=== PATIENT | male | born 1935 | race Caucasian/White ===

== ENCOUNTER → 2016-09-09 | Outpatient (CLI) | payer OTHER ==
[~2016-09-09] MED LIST: ASPCH81; METO25TA3 PO
[2016-09-09 09:36] LABS: BASO % 0.5 %; BASO ABS # 0.04 K/uL (0-0.2); COMPLETE YES; EOS % 5.2 %; HEMATOCRIT 42.6 % (42-52); IG% 0.2 %; LYMPH % 21.5 %; LYMPH ABS # 1.79 K/uL (1.2-3.4); MEAN CELL VOLUME 91.6 fL (80-100); MEAN CORPUSCULAR HEMOGLOBIN 31.2 pg (25-34); MEAN PLATELET VOLUME 12.5 fL (7.4-10.4); MONO % 14.6 %; PLATELET COUNT 249 K/uL (130-400); RED BLOOD COUNT 4.65 M/uL (4.7-6.1); WHITE BLOOD COUNT 8.31 K/uL (4.8-10.8)
[2016-09-09 10:02] LABS: ALT/SGPT 24 U/L (12-78); AST/SGOT 12 U/L (15-37); BLOOD UREA NITROGEN 15 mg/dl (7-18); BUN/CREATININE RATIO 17.8 (10-20); CARBON DIOXIDE 27 mmol/L (21-32); CHLORIDE 106 mmol/L (98-107); CHOLESTEROL 146 mg/dl (0-200); CREATININE 0.86 mg/dl (0.60-1.40); GLUCOSE 96 mg/dl (70-99); POTASSIUM 3.8 mmol/L (3.5-5.1); SODIUM 142 mmol/L (136-145); TRIGLYCERIDES 78 mg/dl (0-150); VERY LOW DENSITY LIPOPROT CALC 16 mg/dl
[2016-09-09 10:10] LABS: ALB/GLOB RATIO 0.7 (0.9-2); ALKALINE PHOSPHATASE 79 U/L (45-117); CHOLESTEROL/HDL RATIO 3.8; HDL CHOLESTEROL 38 mg/dl; LDL CHOLESTEROL CALCULATED 92 mg/dl
[2016-09-09 10:14] LABS: ESTIMATED AVERAGE GLUCOSE 120 mg/dl; HA1C FLAG Normal (Normal)
--- NOTE | 2016-09-15 12:23 | CODING QUERY MEDICAL NECESSITY ---
SUPPORTING DIAGNOSIS NEEDED A supporting diagnosis is required for the test/procedure performed on this patient in order for us to be reimbursed by the patient's insurance. Please provide a supporting diagnosis for the following test/procedure listed below next to the test name along with your signature. *If there is no additional diagnosis for this patient that would support the following test/procedure please document that below next to the test/procedure. Test(s)/Procedure(s) that require a supporting diagnosis: * HEMOGLOBIN A1C DIAGNOSIS: Provider Signature: Date: Thank you Milagros Garg [employer] Information Management Once completed, please kindly fax back to [phone] For questions please call [phone]
== END | disposition home or self-care (01) ==
LOC: C.LAB 07:33
PROVIDERS: ATTEND Internal Medicine
DX: I48.0 Paroxysmal atrial fibrillation (principal); R73.01 Impaired fasting glucose

== ENCOUNTER → 2017-10-09 | Outpatient (CLI) | payer OTHER ==
[2017-10-09 10:36] LABS: BASO % 0.3 %; BASO ABS # 0.03 K/uL (0-0.2); EOS % 1.7 %; EOS ABS # 0.15 K/uL (0-0.5); HEMATOCRIT 42.9 % (42-52); IG# 0.02 K/uL (0.00-0.02); LYMPH % 22.8 %; MEAN CELL VOLUME 92.7 fL (80-100); MEAN CORPUSCULAR HEMOGLOBIN 32.4 pg (25-34); MONO % 9.1 %; NEUT % 65.9 %; NEUT ABS # 5.77 K/uL (1.4-6.5); PLATELET COUNT 249 K/uL (130-400); RED CELL DISTRIBUTION WIDTH CV 13.8 % (11.5-14.5); RED CELL DISTRIBUTION WIDTH SD 46.9 fL (36.4-46.3); WHITE BLOOD COUNT 8.77 K/uL (4.8-10.8)
[2017-10-09 10:43] LABS: HEMOGLOBIN A1C 5.6 % (4.5-5.6)
[2017-10-09 11:02] LABS: ALBUMIN 3.4 gm/dl (3.4-5.0); ALT/SGPT 31 U/L (12-78); AST/SGOT 14 U/L (15-37); BLOOD UREA NITROGEN 19 mg/dl (7-18); CALCIUM 9.2 mg/dl (8.5-10.1); CARBON DIOXIDE 28 mmol/L (21-32); CREATININE 1.05 mg/dl (0.60-1.40); POTASSIUM 4.1 mmol/L (3.5-5.1); SODIUM 140 mmol/L (136-145)
[2017-10-09 11:04] LABS: GLUCOSE 94 mg/dl (70-99)
[2017-10-09 11:05] LABS: ALKALINE PHOSPHATASE 80 U/L (45-117); TOTAL PROTEIN 8.1 gm/dl (6.4-8.2)
== END | disposition home or self-care (01) ==
LOC: C.LABBC 08:52
PROVIDERS: ATTEND Internal Medicine
DX: Z95.0 Presence of cardiac pacemaker (principal); I10 Essential (primary) hypertension; E03.9 Hypothyroidism, unspecified; R73.01 Impaired fasting glucose; I44.2 Atrioventricular block, complete; I48.0 Paroxysmal atrial fibrillation; N40.1 Benign prostatic hyperplasia with lower urinary tract symptoms

== ENCOUNTER 2021-12-28 11:30 | Inpatient (IN) ==
--- NOTE | 2021-12-28 12:08 | Emergency Department Note ---
History of Present Illness General Chief complaint: Hip Pain Stated complaint: RT HIP PAIN Time Seen by Provider: 12/28/21 11:50 History of Present Illness Maximum Pain Intensity: 5 This is an 86-year-old male that presents to the emergency department via private vehicle accompanied by male with complaints of "right hip pain". The patient notes that he has been experiencing right hip pain over the past few days. No known trauma or injury. No history of previous hip surgery. Patient denies any fevers, chills, chest pain, shortness of breath or abdominal pain. Patient points to the right lateral posterior hip as a location of pain that radiates down the right leg and into the right foot. He notes some right foot numbness with this discomfort. Patient denies any lower extremity weakness, bowel or bladder incontinence, numbness or tingling in genital region. Current pain 07/30. Home Medications Medication Instructions Recorded Confirmed Type clobetasol-emollient 0.05 % 1 appln topical BID PRN flare up 11/15/19 12/28/21 History topical cream #1 g sildenafil 100 mg tablet 100 mg PO UD PRN sexual activity 11/15/19 12/28/21 Rx #30 tabs cholecalciferol (vitamin D3) 50 50 mcg PO DAILY #30 caps 05/29/20 12/28/21 Rx mcg (2,000 unit) capsule carvedilol 25 mg tablet 25 mg PO BID #180 tabs 07/05/21 12/28/21 Rx apixaban 5 mg tablet (Eliquis) 5 mg PO BID #180 tabs 07/23/21 12/28/21 Rx lisinopril 5 mg tablet 5 mg PO DAILY #90 tabs 11/04/21 12/28/21 Rx Allergies Allergy/AdvReac Type Severity Reaction Status Date / Time ciprofloxacin Allergy Intermediate Rash Verified 12/28/21 17:13 Quinolones Allergy Intermediate CIPRO-RASH Verified 12/28/21 17:13 Past Med/Surg History Medical History Atrial fibrillation Cardiomyopathy Hypertension Impaired fasting glucose Third degree heart block Surgical History History of colonoscopy History of laparoscopy history of pyelotomy with lithotomy History of pacemaker Family History Father Old age Mother Old age Grandfather (Maternal) Myocardial infarction Other No significant family history Denies family history of Ovarian cancer Prostate cancer Breast cancer Lung cancer Colorectal cancer Stroke Social History Smoking Status: Never smoker Second Hand Exposure: No; Do You Dip or Chew Tobacco: No; Tobacco Cessation Education Requested by Patient: No Hx Alcohol Use: Yes Alcohol type: beer Alcohol Intake Frequency: 4 or More x per/Week Hx Substance Use: No Preferred Language: Chinese Communication Ability: Effective Visual Impairment: Limited Hearing Ability: Hard of Hearing Mechanical Systems Designer Required: No Beliefs That Will Affect Care: Spiritual marital status: Single Current Living Situation: Alone current occupational status: retired How many Children do You have: 0 Other Information That Helps Us Care for You: No Feels Safe at Home: Yes Safety Concerns: Feels Safe At This Time Childhood Exposure to Second-Hand Smoke: Yes caffeine: Yes Dental Care, Regularly: No Physical Activity Frequency: 1-2 Times per Week Seatbelt Use: always Sunscreen Use: No Assistive Devices: None Review of Systems A total of 10 systems reviewed and were otherwise negative Physical Exam Vital Signs Vital Signs - 24 hr 12/28/21 11:46 12/28/21 15:02 12/28/21 17:57 Temperature 36.5 C Temperature Source Temporal Artery Scan Pulse Rate 83 Pulse Rate [Left Finger] 71 71 Pulse Rhythm Regular Pulse Rhythm [Left Finger] Regular Pulse Strength Normal Pulse Strength [Left Finger] Normal Respiratory Rate 16 18 18 Respiratory Effort / Characteristics Non-Labored Spontaneous Non-Labored Spontaneous Respiratory Depth Normal Normal Respiratory Pattern Regular Regular Blood Pressure 100/65 Blood Pressure [Left Arm] 156/99 H 159/82 H Blood Pressure Mean 76 Blood Pressure Mean [Left Arm] 118 107 Blood Pressure Position Sitting Blood Pressure Position [Left Arm] Sitting Pulse Oximetry 96 97 95 Oxygen Delivery Method Room Air Room Air Room Air Sepsis Recent Fever Within 48 Hours No Sepsis New/Unexplained Change in Mental Status No Sepsis Action Taken by Nursing No Action Required VITAL SIGNS - Vital signs and nursing notes were reviewed. Stable and afebrile. GENERAL -86-year-old male appearing his stated age who is in no acute distress. Communicates well with provider and answers questions appropriately. SKIN - Without rashes. No meningeal or petechial rash. The skin overlying the right hip is unremarkable. No erythema or edema. No fluctuance. No wound dehiscence or evidence of ulceration. HEAD - NC/AT. EYES - PERRL with EOMI bilaterally. Sclera anicteric. NECK - Neck with FROM. No nuchal rigidity. LUNGS -clear to auscultation CARDIAC -regular rate and rhythm EXTREMITIES - No clubbing or peripheral cyanosis. No pretibial edema present. There is no point tenderness overlying the right lateral hip. Patient able to fully actively flex at the right hip and with straight leg raise bilaterally without issue. His strength is within normal limits. His dorsalis pedis pulses are within normal limits and symmetric. No evidence of decreased perfusion in the lower extremities. +5/5 strength noted in UE/LE bilaterally. ABDOMENthere is a nontender abdomen. Bowel sounds normoactive. No guarding or rigidity. No bruising. NEUROLOGIC - Cranial nerves II through XII grossly intact. PSYCH - A&O, and cooperates fully with examiner. Pt is very pleasant and interacts well with examiner. Course Administered Medications Acetaminophen (Acetaminophen 325 Mg Tab) 650 mg PO Q4H PRN PRN Reason: Pain Stop: 01/29/22 08:49 Last Admin: 12/31/21 15:19 Dose: 650 mg Documented By: [id number] Admin: 12/31/21 09:19 Dose: 650 mg Documented By: [id number] Admin: 12/30/21 09:20 Dose: 650 mg Documented By: CHRIST Apixaban (Apixaban 5 Mg Tablet) 5 mg PO BID KAMILA Stop: 01/27/22 20:59 Last Admin: 01/01/22 08:34 Dose: 5 mg Documented By: [email or web address] Admin: 12/31/21 20:33 Dose: 5 mg Documented By: [id number] Admin: 12/31/21 07:55 Dose: 5 mg Documented By: [id number] Admin: 12/30/21 19:48 Dose: 5 mg Documented By: Admin: 12/30/21 08:11 Dose: 5 mg Documented By: Admin: 12/29/21 20:11 Dose: 5 mg Documented By: Admin: 12/29/21 08:11 Dose: 5 mg Documented By: Admin: 12/28/21 20:53 Dose: 5 mg Documented By: JOSEE Carvedilol (Carvedilol 25 Mg Tab) 25 mg PO BID KAMILA Stop: 01/27/22 20:59 Last Admin: 01/01/22 08:34 Dose: 25 mg Documented By: Admin: 12/31/21 20:33 Dose: 25 mg Documented By: [id number] Admin: 12/31/21 07:54 Dose: 25 mg Documented By: [id number] Admin: 12/30/21 19:48 Dose: 25 mg Documented By: Admin: 12/30/21 08:11 Dose: 25 mg Documented By: Admin: 12/29/21 20:11 Dose: 25 mg Documented By: Admin: 12/29/21 08:11 Dose: 25 mg Documented By: Admin: 12/28/21 20:52 Dose: 25 mg Documented By: JOSEE Lidocaine (Lidocaine 5% 1 Patch) 1 patch TD QAM KAMILA Stop: 01/28/22 08:59 Last Admin: 01/01/22 10:36 Dose: 1 patch Documented By: Admin: 12/31/21 07:57 Dose: 1 patch Documented By: [id number] Admin: 12/30/21 08:12 Dose: 1 patch Documented By: Admin: 12/29/21 08:11 Dose: 1 patch Documented By: OTILIA Lisinopril (Lisinopril 5 Mg Tab) 5 mg PO DAILY [facility] Stop: 01/28/22 08:59 Last Admin: 01/01/22 08:34 Dose: 5 mg Documented By: Admin: 12/31/21 07:55 Dose: 5 mg Documented By: [id number] Admin: 12/30/21 08:11 Dose: 5 mg Documented By: Admin: 12/29/21 08:11 Dose: 5 mg Documented By: OTILIA Miscellaneous (Remove Lidoderm Patch) 1 each N/A DAILY@2100 [facility] Stop: 01/27/22 20:59 Last Admin: 12/31/21 20:26 Dose: 1 each Documented By: [id number] Admin: 12/30/21 19:49 Dose: 1 each Documented By: Admin: 12/29/21 21:36 Dose: Not Given Documented By: Admin: 12/28/21 20:53 Dose: 1 each Documented By: JOSEE Vitamin D (Cholecalciferol 1,000 Units 25 Mcg Tab) 2,000 units PO DAILY KAMILA Stop: 01/28/22 08:59 Last Admin: 01/01/22 08:34 Dose: 2,000 units Documented By: Admin: 12/31/21 07:55 Dose: 2,000 units Documented By: [id number] Admin: 12/30/21 08:11 Dose: 2,000 units Documented By: Admin: 12/29/21 08:11 Dose: 2,000 units Documented By: OTILIA Discontinued Medications Acetaminophen (Acetaminophen 325 Mg Tab) 650 mg PO NOW STA Stop: 12/28/21 12:52 Last Admin: 12/28/21 13:37 Dose: 650 mg Documented By: MICHELLE Hydrocodone Bitart/Acetaminophen (Hydrocodone/Acetamophen 5/325mg Tab) 1 tab PO NOW STA Stop: 12/28/21 14:42 Last Admin: 12/28/21 14:59 Dose: 1 tab Documented By: SHWETHA Dexamethasone Sodium Phosphate (DexamethasonePf 10 Mg/Ml Vial) 6 mg IV NOW ONE Stop: 12/28/21 17:12 Last Admin: 12/28/21 17:56 Dose: 6 mg Documented By: IMELDA Influenza Virus Vaccine (Influenza Vaccine High Dose Pf 65+ 0.7 Ml Syr) 0.7 ml IM .ONCE ONE Stop: 12/28/21 20:40 Last Admin: 12/29/21 20:11 Dose: 0.7 ml Documented By: ADRY Lidocaine (Lidocaine 5% 1 Patch) 1 patch TD NOW STA Stop: 12/28/21 12:52 Last Admin: 12/28/21 13:37 Dose: 1 patch Documented By: MICHELLE Miscellaneous (Remove Lidoderm Patch) 1 each N/A DAILY@2100 K[facility]A Stop: 01/27/22 20:59 Last Admin: 12/29/21 21:35 Dose: Not Given Documented By: Admin: 12/28/21 20:53 Dose: 1 each Documented By: JOSEE Medical Decision Making Laboratory Data Result diagrams: 12/31/21 06:15 12/31/21 06:15 Lab Results 12/28/21 12/28/21 Range/Units 17:40 17:40 WBC 7.67 (4.8-10.8) K/ul RBC 4.35 L (4.63-6.08) M/uL Hgb 13.7 L (14.0-18.0) g/dl Hct 41.1 (40.1-51.0) % MCV 94.5 (80.0-100.0) fL MCH 31.5 (25.0-34.0) pg MCHC 33.3 (32.0-36.0) g/dL RDW Std Deviation 48.2 H (36.4-46.3) fL RDW Coeff of Adolfo 13.9 (11.5-14.5) % Plt Count 246 (130-400) K/uL MPV 10.7 (9.4-12.4) fL Immature Gran % (Auto) 0.1 % Neut % (Auto) 55.3 % Lymph % (Auto) 30.5 % Mcdonough % (Auto) 9.4 % Eos % (Auto) 3.9 % Baso % (Auto) 0.8 % Neut # (Auto) 4.24 (1.4-6.5) K/uL Lymph # (Auto) 2.34 (1.2-3.4) K/uL Mcdonough # (Auto) 0.72 (0.24-0.82) K/uL Eos # (Auto) 0.30 (0-0.50) K/uL Baso # (Auto) 0.06 (0-0.2) K/uL Immature Gran # (Auto) 0.01 (0.00-0.02) K/uL SARS-CoV-2, RNA, NAAT NEGATIVE (NEGATIVE) Imaging Data Radiologist's Impression: Femur X-Ray 12/28/21 12:07 XR femur RT 2V routine CLINICAL HISTORY: R hip pain that radiates into R leg COMPARISON: None FINDINGS: Alignment of the right hip and right knee is anatomic. There is no acute fracture within the right femur. There is no osseous lesion. There is mild joint space narrowing and osteophytosis of the right hip. There is no evidence for avascular necrosis of the right femoral head. IMPRESSION: 1. No fracture within the right femur. 2. Mild right hip osteoarthritis. ACT 112: Negative or not required by law. Electronically signed by: Tucker Byrnes M.D. 12/28/2021 4:[address] 12/28/21 12:07 CT lumbar spine wo con CLINICAL HISTORY: Right hip pain that radiates into right leg COMPARISON STUDY: No previous studies for comparison. TECHNIQUE: Axial images of the lumbar spine were obtained without IV contrast. Sagittal and coronal reconstructions were viewed. Automated exposure control was utilized for the study. A dose lowering technique was utilized adhering to the principles of ALARA. FINDINGS: Please note that the CT of the abdomen and pelvis will be reported separately. Moderate dextroscoliosis of the lumbar spine is noted. No acute fracture is noted. There is severe multilevel facet arthrosis, disc space narrowing and osteophytosis within the lumbar spine. The central canal and neural foramen are suboptimally assessed given CT technique. No suspicious osse ous lesions are present. Renal calculi better depicted on the abdominal CT. There are trace bilateral pleural effusions. Sacroiliac joints are intact. IMPRESSION: 1. No acute lumbar spine fracture or subluxation. 2. Severe multilevel degenerative changes within the lumbar spine. Suboptimal evaluation of the central canal and neural foramen given CT technique. 3. Moderate dextroscoliosis of the lumbar spine. ACT 112: Negative or not required by law. Electronically signed by: Tucker Byrnes M.D. 12/28/2021 3:49 PM Abdomen/Pelvis CT 12/28/21 12:16 CT OF THE ABDOMEN AND PELVIS WITHOUT CONTRAST CLINICAL HISTORY: Right hip pain. COMPARISON STUDY: IVP June 25, 2010. Renal ultrasound August 21, 2006. TECHNIQUE: Axial images of the abdomen and pelvis were obtained without IV contrast. Images were reviewed in the axial, sagittal, and coronal planes. Automated exposure control was utilized for the study. A dose lowering te chnique was utilized adhering to the principles of ALARA. FINDINGS: Emphysema is noted within the lower lungs. No pneumatosis, free air or portal venous gas is present. Moderate left hydronephrosis is noted. This appears decreased compared to IVP of June 25, 2010. Left renal calculi measure up to 1.7 cm. There is a 4 mm right renal calculus. There are no ureteral calculi. There is no right hydronephrosis. Evaluation of the remainder of the ab domen and pelvis is suboptimal on this unenhanced exam. The liver, spleen, adrenal glands and pancreas are unremarkable. There is mild gaseous distention of the sigmoid colon. However, there is no evidence for a bowel obstruction. Fat-containing umbilical hernia is present. The appendix is normal. There is no lymphadenopathy or ascites. No biliary or pancreatic ductal dilatation is present. Dextroscoliosis of the lumbar spine is noted. Please note that the lumbar spine CT will be reported separately. IMPRESSION: 1. Bilateral nephrolithiasis. No ureteral calculi. 2. Moderate left hydronephrosis, decreased since IVP of June 25, 2010. This is likely chronic. 3. No bowel obstruction. Normal appendix. No bowel wall thickening on unenhanced exam. ACT 112: Negative or not required by law. Electronically signed by: Tucker Byrnes M.D. 12/28/2021 3:33 PM MDM Narrative Patient was seen and evaluated as above in room D06. Review was performed of nursing notes and vital signs. I did review pertinent previous visits and patient history. After obtaining a thorough history and physical examination the above work up was performed. Patient presents to us today with atraumatic right hip pain. This appears to be musculoskeletal in nature and may be lumbar radiculopathy versus small fracture versus underlying generative change among others. Based on history and examination this is felt to be unlikely to be any acute intra-abdominal process or spontaneous bleeding. No evidence of neurovascular compromise. No evidence of cauda equina syndrome. Options of care were discussed with the patient. CT imaging was obtained of the abdomen/pelvis without contrast as the patient does have a history of renal insufficiency. Patient not felt to benefit from lab work at this time. X-ray was also obtained of the right femur. Patient was offered pain medication on initial evaluation respectfully declined. I was then notified the nurse later in the patient stated that he did desire something for pain as he had changed his mind. I discussed several options with the patient and through shared decision making agreed upon oral acetaminophen as well as a lidocaine patch. Ice pack was already applied to the right hip. Imaging as above. No fracture or dislocation. The patient does have what appears to be severe multilevel degenerative changes of the lumbar spine. This certainly could be contributing to his symptoms. He does not have any findings clinically to suggest need for emergent L-spine MRI. As I was preparing to discharge the patient I discussed several options with the patient. He does have a friend at bedside. I did asked the friend if he was going to be taking the patient back home upon discharge from here. The friend noted that he would, but expresses safety for the patient at home. The friend at bedside notes that the patient lives alone, and does not have any type of alerting devices or cell phone that he can keep on his person in the event of fall or emergency. He is also concerned that the patient does have several steps that he has to utilize in his apartment. He is concerned that the patient may fall given his symptoms. This certainly is a valid concern and I discussed this with the patient. We then had a lengthy discussion regarding options. Ultimately the patient in agreement with inpatient management which I believe is reasonable. While here the patient was medicated with lidocaine patch and acetaminophen. He had no relief with these. 1 [place] tablet also ordered and he did not have any relief with this. IV access established and he was given 6 mg of dexamethasone for his suspected lumbar radiculopathy. I will note that it is felt that the benefit of the steroid outweighs risk. Patient denies any history of bleeding issues or history of GI bleeding. Patient presentation most consistent with that of right-sided lumbar radiculopa thy. He does have the discomfort following specific dermatomal distribution extending/ overlying the right lateral/posterior leg with some intermittent right foot numbness. I did attempt to have patient ambulate at bedside and he was able to stand from a sitting position but there was concern that the right leg may give out on him. The right leg did not seem weak on examination. No evidence of CVA. No deficits clinically. Case discussed with the hospitalist service. Please refer to further documentation regarding his stay. Case was discussed with the attending physician. GCS: 15 In the evaluation and treatment of this patient the following differential diagnoses were entertained: Fracture, dislocation, subluxation, contusion, cauda equina syndrome, sprain, strain, lumbar radiculopathy, retroperitoneal bleeding, AAA, dissection, among others. Impression & Plan Acute right lumbar radiculopathy, Acute pain of right hip Discharge Plan Visit Data Chief Complaint: Hip Pain Stated Complaint: RT HIP PAIN ED Provider: Aamir De La Torre ED Midlevel Provider: Shad Frank Discharge Problem: Acute right lumbar radiculopathy, Acute pain of right hip Patient Disposition: Admitted As Inpatient Condition: Good Discharge Instructions Interventions: ED Discharge Assessment Last Done: 12/28/21 18:33 Addendum January 01, 2022 13:59 HPI: The patient is an 86-year-old gentleman with a past medical history of atrial fibrillation, cardiomyopathy, hypertension, heart block, status post PPM who presents emergency department via private vehicle for evaluation of right hip pain which originates in his lower back and is felt over the past several days. Patient denies any fall/trauma. He denies any prior history of hip surgery. Otherwise denies any recent illness including fevers, chills, GI or symptoms. Pain originates on the right lower lumbar region/lateral aspect of his hip radiating down right leg to his foot with his report of associated numbness and tingling. Patient denies any loss of bowel control or urinary retention. A/P: Plain films of right femur negative for fracture. Note is made of osteoarthritis. CT of the lumbar spine and abdomen pelvis were performed and were negative for acute process though note is made of severe degenerative change within the lumbar spine. Note is made of bilateral nephrolithiasis with moderate chronic left-sided hydronephrosis which is decreased since June 2010 and incidental as he has no left-sided symptoms. Patient was treated initially with acetaminophen and lidocaine patch. Initial plan was to optimize symptom relief for suspected lumbar radiculopathy with steroids and walker for assistan ce however friend did arrive to the bedside and they both expressed concern that the patient lives alone and does not feel safe ambulating in his current condition. Thus, the patient was referred for admission. I was consulted by the Advanced Practice Provider.I performed a substantive portion of the visit.This includes aspects of the HPI, MDM, diagnostic interpretations, and disposition/plan. I discussed the case with the CHACHO, examined the patient, and agree with the findings and plan as documented in CHACHO Bamat's note.
[2021-12-28] MEDS ORDERED: LIDOCAINE 5% 1 PATCH TD STA (12:51)
[2021-12-28] MEDS ORDERED: ACETAMINOPHEN 325 MG TAB PO STA (12:51)
[2021-12-28] MEDS ORDERED: HYDROCODONE/ACETAMOPHEN 5/325MG TAB PO STA (14:41)
--- NOTE | 2021-12-28 15:36 | CT Scan Report ---
CT OF THE ABDOMEN AND PELVIS WITHOUT CONTRAST CLINICAL HISTORY: Right hip pain. COMPARISON STUDY: IVP June 25, 2010. Renal ultrasound August 21, 2006. TECHNIQUE: Axial images of the abdomen and pelvis were obtained without IV contrast. Images were revi ewed in the axial, sagittal, and coronal planes. Automated exposure control was utilized for the arcelia dy. A dose lowering technique was utilized adhering to the principles of ALARA. FINDINGS: Emphysema is noted within the lower lungs. No pneumatosis, free air or portal venous gas is present. Moderate left hydronephrosis is noted. This appears decreased compared to IVP of June 25 011. Left renal calculi measure up to 1.7 cm. There is a 4 mm right renal calculus. There are no uret eral calculi. There is no right hydronephrosis. Evaluation of the remainder of the abdomen and pelvis is suboptimal on this unenhanced exam. The liver, spleen, adrenal glands and pancreas are unremarkab le. There is mild gaseous distention of the sigmoid colon. However, there is no evidence for a bowel obstruction. Fat-containing umbilical hernia is present. The appendix is normal. There is no lymphade nopathy or ascites. No biliary or pancreatic ductal dilatation is present. Dextroscoliosis of the lum bar spine is noted. Please note that the lumbar spine CT will be reported separately. IMPRESSION: 1. Bilateral nephrolithiasis. No ureteral calculi. 2. Moderate left hydronephrosis, decreased since IVP of June 25, 2010. This is likely chronic. 3. No bowel obstruction. Normal appendix. No bowel wall thickening on unenhanced exam. ACT 112: Negative or not required by law. Electronically signed by: Tucker Byrnes M.D. 12/28/2021 3:33 PM
--- NOTE | 2021-12-28 15:51 | CT Scan Report ---
CT lumbar spine wo con CLINICAL HISTORY: Right hip pain that radiates into right leg COMPARISON STUDY: No previous studies for comparison. TECHNIQUE: Axial images of the lumbar spine were obtained without IV contrast. Sagittal and coronal r econstructions were viewed. Automated exposure control was utilized for the study. A dose lowering t echnique was utilized adhering to the principles of ALARA. FINDINGS: Please note that the CT of the abdomen and pelvis will be reported separately. Moderate dex troscoliosis of the lumbar spine is noted. No acute fracture is noted. There is severe multilevel fac et arthrosis, disc space narrowing and osteophytosis within the lumbar spine. The central canal and n eural foramen are suboptimally assessed given CT technique. No suspicious osseous lesions are present . Renal calculi better depicted on the abdominal CT. There are trace bilateral pleural effusions. Sac roiliac joints are intact. IMPRESSION: 1. No acute lumbar spine fracture or subluxation. 2. Severe multilevel degenerative changes within the lumbar spine. Suboptimal evaluation of the centr al canal and neural foramen given CT technique. 3. Moderate dextroscoliosis of the lumbar spine. ACT 112: Negative or not required by law. Electronically signed by: Tucker Byrnes M.D. 12/28/2021 3:49 PM
--- NOTE | 2021-12-28 16:02 | XRay Report ---
XR femur RT 2V routine CLINICAL HISTORY: R hip pain that radiates into R leg COMPARISON: None FINDINGS: Alignment of the right hip and right knee is anatomic. There is no acute fracture within t he right femur. There is no osseous lesion. There is mild joint space narrowing and osteophytosis of the right hip. There is no evidence for avascular necrosis of the right femoral head. IMPRESSION: 1. No fracture within the right femur. 2. Mild right hip osteoarthritis. ACT 112: Negative or not required by law. Electronically signed by: Tucker Byrnes M.D. 12/28/2021 4:01 PM
[2021-12-28] MEDS ORDERED: dexAMETHasone**PF** 10 MG/ML VIAL IV ONE (17:11)
--- NOTE | 2021-12-28 17:37 | History & Physical Report ---
Date of Service December 28, 2021 Assessment & Plan (1) Acute right lumbar radiculopathy: Plan: Patient having difficulty ambulating. CT lumbar spine showed degenerative changes. Will recommend PT?OT. will assess for lyme. will likely benefit from ortho spine consult if conservative measures do not help. 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 BP at goal (4) Atrial fibrillation: Plan: rate controlled. resume anticoagulation (5) Cardiomyopathy: Plan: Not in any acute CHF currently. will monitor History of Present Illness Chief Complaint: ambulatory dysfunction Primary Care Provider: Truman Valle MD This is an 86-year-old male that presents to the emergency department comes to the ED with a male friend for right hip pain. Patient notes that this has been worsening for past few days. No previous hip trauma. Patient denies any fever, chills, chest pain, SOB/ Patient states pain in his posterior hip and it radiates down into his right foot. He also reports numbness. Patient denies any lower extremity weakness, bowel or bladder incontinence, numbness or tingling in genital Allergies Allergy/AdvReac Type Severity Reaction Status Date / Time ciprofloxacin Allergy Intermediate Rash Verified 12/28/21 17:13 Quinolones Allergy Intermediate CIPRO-RASH Verified 12/28/21 17:13 Home Medications Medication Instructions Recorded Confirmed Type clobetasol-emollient 0.05 % 1 appln topical BID PRN flare up 11/15/19 12/28/21 History topical cream #1 g sildenafil 100 mg tablet 100 mg PO UD PRN sexual activity 11/15/19 12/28/21 Rx #30 tabs cholecalciferol (vitamin D3) 50 50 mcg PO DAILY #30 caps 05/29/20 12/28/21 Rx mcg (2,000 unit) capsule carvedilol 25 mg tablet 25 mg PO BID #180 tabs 07/05/21 12/28/21 Rx apixaban 5 mg tablet (Eliquis) 5 mg PO BID #180 tabs 07/23/21 12/28/21 Rx lisinopril 5 mg tablet 5 mg PO DAILY #90 tabs 11/04/21 12/28/21 Rx Past Med/Surg History Medical History Atrial fibrillation Cardiomyopathy Hypertension Impaired fasting glucose Third degree heart block Surgical History History of colonoscopy History of laparoscopy history of pyelotomy with lithotomy History of pacemaker Family History Father Old age Mother Old age Grandfather (Maternal) Myocardial infarction Other No significant family history Denies family history of Ovarian cancer Prostate cancer Breast cancer Lung cancer Colorectal cancer Stroke Social History Smoking Status: Never smoker Second Hand Exposure: No; Do You Dip or Chew Tobacco: No; Tobacco Cessation Education Requested by Patient: No Hx Alcohol Use: Yes Alcohol type: beer Alcohol Intake Frequency: 4 or More x per/Week Hx Substance Use: No Preferred Language: Yi Communication Ability: Effective Visual Impairment: Limited Hearing Ability: Hard of Hearing Marketing Finance Manager Required: No Beliefs That Will Affect Care: None marital status: Single Current Living Situation: Alone current occupational status: retired How many Children do You have: 0 Other Information That Helps Us Care for You: No Feels Safe at Home: Yes Safety Concerns: Feels Safe At This Time Childhood Exposure to Second-Hand Smoke: Yes caffeine: Yes Dental Care, Regularly: No Physical Activity Frequency: 1-2 Times per Week Seatbelt Use: always Sunscreen Use: No Assistive Devices: None Review of Systems Constitutional: + body aches and + weakness; no fever Eyes: no blind spots Ear, Nose, Mouth, Throat: no ear pain Respiratory: no cough, no change in sputum and no dyspnea Cardiovascular: no chest pain and no radiating jaw, neck or arm pain Gastrointestinal: no abdominal pain and no early satiety Genitourinary: no dysuria Musculoskeletal: no back pain Integumentary: no acne Neurologic: no gait abnormality Psychiatric: no behavioral changes Endocrine: + fatigue Hematologic / Lymphatic: no easy bleeding Allergy / Immunological: no GI upset with certain foods Physical Exam Constitutional: WD/WN, vitals as above Eyes: PERRL, conjunctivae normal, anicteric sclerae ENMT: external ear and nose normal, oropharynx normal Neck: trachea midline, no thyromegaly Respiratory: normal respiratory effort, lungs clear to auscultation Cardiovascular: RRR, no murmur, no edema Gastrointestinal (Abdomen): normal bowel sounds, soft, nontender, no hepatosplenomegaly Musculoskeletal: Head/Neck/Chest: + head abnormal to inspection Neurologic: PERRL, EOMI, accommodation nl, no face palsy, no dysarthria Psychiatric: A+Ox3, euthymic affect Lymphatic: no cervical or axillary lymphadenopathy Results & Data Results & Data ([facility]) Vital Signs (Past 12 Hours) Vital Signs Temp Pulse Pulse Resp BP BP Pulse Ox 12/28/21 15:02 71 18 156/99 H 97 12/28/21 11:46 36.5 C 83 16 100/65 96 O2 Del Method 12/28/21 15:02 Room Air 12/28/21 11:46 Room Air PG Care Time/CCT Total # of Minutes Spent Total Time Spent with Patient: Total time spent is greater than 50% in coordination of care (as documented) at patient's floor/unit and/or counseling patient: Coding Level of Care Code 84505 Initial Inpt Care Lvl 3 Diagnoses Acute right lumbar radiculopathy M54.16 BPH with obstruction/lower urinary tract symptoms N40.1; N13.8 Hypertension I10 Hypertension type: essential hypertension Atrial fibrillation I48.21 Atrial fibrillation type: permanent Cardiomyopathy I42.0 Cardiomyopathy type: dilated (1) Hypertension Hypertension type: essential hypertension Qualified Code(s): I10 - Essential (primary) hypertension (2) Atrial fibrillation Atrial fibrillation type: permanent Qualified Code(s): I48.21 - Permanent atrial fibrillation (3) Cardiomyopathy Cardiomyopathy type: dilated Qualified Code(s): I42.0 - Dilated cardiomyopathy
[2021-12-28] MEDS ORDERED: NON-FORMULARY MEDICATION (Sildenafil 100 mg tablet) PO PRN (17:38)
[2021-12-28 17:50] LABS: Basophils # (auto) 0.06 K/uL (0-0.2); Basophils % (auto) 0.8 %; Eosinophils % (auto) 3.9 %; Hematocrit (blood only) 41.1 % (40.1-51.0); Hemoglobin 13.7 g/dl (14.0-18.0); Immature Granulocytes # (auto) 0.01 K/uL (0.00-0.02); Immature Granulocytes % (auto) 0.1 %; Lymphocytes # (auto) 2.34 K/uL (1.2-3.4); Lymphocytes % (auto) 30.5 %; Mean Corpuscular Hemoglobin 31.5 pg (25.0-34.0); Mean Corpuscular Hgb Conc 33.3 g/dL (32.0-36.0); Mean Corpuscular Volume 94.5 fL (80.0-100.0); Mean Platelet Volume 10.7 fL (9.4-12.4); Monocytes # (auto) 0.72 K/uL (0.24-0.82); Monocytes % (auto) 9.4 %; Neutrophils # (auto) 4.24 K/uL (1.4-6.5); Neutrophils % (auto) 55.3 %; Platelet Count 246 K/uL (130-400); RDW Coefficient of Variation 13.9 % (11.5-14.5); RDW Standard Deviation 48.2 fL (36.4-46.3); Red Blood Count 4.35 M/uL (4.63-6.08); White Blood Count 7.67 K/ul (4.8-10.8)
[2021-12-28 18:31] LABS: Albumin Globulin Ratio 0.9 (0.9-2); Albumin Level 3.4 gm/dl (3.4-5.0); BUN Creatinine Ratio 18.9 (10-20); Bilirubin,Total 0.7 mg/dl (0.2-1.0); Calcium 9.5 mg/dl (8.5-10.1); Creatinine Clr Calc Pharmacy 72.6 ml/min; Est GFR (African American) 96.1 ml/min; Est GFR (Non-African American) 82.9 ml/min; Globulin 3.7 gm/dl (2.5-4.0); Potassium 4.3 mmol/L (3.5-5.1); Total Protein 7.1 gm/dl (6.0-8.3)
[2021-12-28] MEDS ORDERED: CLOBETASOL PROPIONATE 0.05% OINT 15 GM TUBE EXT PRN (19:03)
[2021-12-28] MEDS ORDERED: INFLUENZA VACCINE HIGH DOSE PF 65+ 0.7 ML SYR IM ONE (20:39)
[2021-12-28] MEDS: carvediloL 25 MG TAB PO SCH (20:52)
[2021-12-28] MEDS: APIXABAN 5 MG TABLET PO SCH (20:53)
[2021-12-29] MEDS: APIXABAN 5 MG TABLET PO SCH ×2 (08:11→20:11)
[2021-12-29] MEDS: carvediloL 25 MG TAB PO SCH ×2 (08:11→20:11)
[2021-12-29] MEDS: CHOLECALCIFEROL 1,000 UNITS 25 MCG TAB PO SCH (08:11)
[2021-12-29] MEDS: LIDOCAINE 5% 1 PATCH TD SCH (08:11)
[2021-12-29] MEDS: lisinopril 5 MG TAB PO SCH (08:11)
--- NOTE | 2021-12-29 21:17 | Hospitalist Progress Note ---
Date of Service December 29, 2021 Assessment & Plan (1) Acute right lumbar radiculopathy: Plan: Patient having difficulty ambulating. CT lumbar spine showed degenerative changes. ordered PT/OT: appears patient will require rehab given worsening instability that appears to have worsen in the past 3 days as per patient.. will assess for lyme. will likely benefit from ortho spine consult if conservative measures do not help. 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 BP at goal (4) Atrial fibrillation: Plan: rate controlled. resume anticoagulation (5) Cardiomyopathy: Plan: Not in any acute CHF currently. will monitor Admission and Anticipated Discharge Date Admission Date: December 28, 2021 Subjective 86 yo male reports no new symptoms. Review of Systems Review of Systems: All systems reviewed & are unremarkable except as noted in HPI & below Physical Exam Constitutional: WD/WN, vitals as above Eyes: PERRL, conjunctivae normal, anicteric sclerae ENMT: external ear and nose normal, oropharynx normal Neck: trachea midline, no thyromegaly Respiratory: normal respiratory effort, lungs clear to auscultation Cardiovascular: RRR, no murmur, no edema Gastrointestinal (Abdomen): normal bowel sounds, soft, nontender, no hepatosplenomegaly Musculoskeletal: Head/Neck/Chest: normocephalic Neurologic: PERRL, EOMI, accommodation nl, no face palsy, no dysarthria Psychiatric: A+Ox3, euthymic affect Lymphatic: no cervical or axillary lymphadenopathy PG Care Time/CCT Total # of Minutes Spent Total Time Spent with Patient: Total time spent is greater than 50% in coordination of care (as documented) at patient's floor/unit and/or counseling patient: Coding Level of Care Code 58421 Subseq Hosp Care Lvl 2 Diagnoses Acute right lumbar radiculopathy M54.16 BPH with obstruction/lower urinary tract symptoms N40.1; N13.8 Hypertension I10 Hypertension type: essential hypertension Atrial fibrillation I48.21 Atrial fibrillation type: permanent Cardiomyopathy I42.0 Cardiomyopathy type: dilated Time Spent (min) 25 (1) Atrial fibrillation Atrial fibrillation type: permanent Qualified Code(s): I48.21 - Permanent atrial fibrillation (2) Hypertension Hypertension type: essential hypertension Qualified Code(s): I10 - Essential (primary) hypertension (3) Cardiomyopathy Cardiomyopathy type: dilated Qualified Code(s): I42.0 - Dilated cardiomyopathy
[2021-12-30] MEDS: carvediloL 25 MG TAB PO SCH ×2 (08:11→19:48)
[2021-12-30] MEDS: lisinopril 5 MG TAB PO SCH (08:11)
[2021-12-30] MEDS: APIXABAN 5 MG TABLET PO SCH ×2 (08:11→19:48)
[2021-12-30] MEDS: CHOLECALCIFEROL 1,000 UNITS 25 MCG TAB PO SCH (08:11)
[2021-12-30] MEDS: LIDOCAINE 5% 1 PATCH TD SCH (08:12)
[2021-12-30] MEDS: ACETAMINOPHEN 325 MG TAB PO PRN (09:20)
[2021-12-30 09:50] LABS: Hematocrit (blood only) 42.1 % (40.1-51.0); Mean Corpuscular Hemoglobin 31.5 pg (25.0-34.0); Mean Corpuscular Hgb Conc 33.3 g/dL (32.0-36.0); Mean Corpuscular Volume 94.8 fL (80.0-100.0); Mean Platelet Volume 10.5 fL (9.4-12.4); Platelet Count 250 K/uL (130-400); RDW Standard Deviation 49.1 fL (36.4-46.3); Red Blood Count 4.44 M/uL (4.63-6.08); White Blood Count 10.76 K/ul (4.8-10.8)
[2021-12-30 10:09] LABS: Albumin Globulin Ratio 0.9 (0.9-2); Albumin Level 3.3 gm/dl (3.4-5.0); Bilirubin,Total 0.5 mg/dl (0.2-1.0); Calcium 9.5 mg/dl (8.5-10.1); Creatinine Clr Calc Pharmacy 59.1 ml/min; Est GFR (African American) 87.5 ml/min; Est GFR (Non-African American) 75.5 ml/min; Globulin 3.6 gm/dl (2.5-4.0); Potassium 3.7 mmol/L (3.5-5.1); Total Protein 6.9 gm/dl (6.0-8.3)
[2021-12-30 10:32] LABS: Lyme Ab IgG w/WB Rflx Negative (Negative); Lyme Ab IgM w/WB Rflx Negative (Negative)
--- NOTE | 2021-12-30 12:32 | Orthopedic Consultation ---
Date of Consultation December 30, 2021 Assessment & Plan (1) Acute right lumbar radiculopathy: Assessment lumbar spinal stenosis with neurogenic claudication. Plan at this time he is overall highly functional dividual. We both agree that nonoperative measures should be explored. We will have pain management assessed the patient for possible epidural injections versus facet injections. History of Present Illness Reason for Consultation: Severe back pain Attending Physician: Ravi Lau History of Present Illness This is a very pleasant 86-year-old male that presents with worsening back pain over the last 3 days. He denies any specific trauma fall or event. He overall tries to remain active and often cycles. He denies any clear radicular complaints at this time. He states sitting in his bed partially propped up this is most comfortable position. He denies any motor deficit denies any radicular complaints denies any numbness or tingling in the upper legs but some numbness in his right foot. Allergies Allergy/AdvReac Type Severity Reaction Status Date / Time ciprofloxacin Allergy Intermediate Rash Verified 12/28/21 17:13 Quinolones Allergy Intermediate CIPRO-RASH Verified 12/28/21 17:13 Home Medications Medication Instructions Recorded Confirmed Type clobetasol-emollient 0.05 % 1 appln topical BID PRN flare up 11/15/19 12/28/21 History topical cream #1 g sildenafil 100 mg tablet 100 mg PO UD PRN sexual activity 11/15/19 12/28/21 Rx #30 tabs cholecalciferol (vitamin D3) 50 50 mcg PO DAILY #30 caps 05/29/20 12/28/21 Rx mcg (2,000 unit) capsule carvedilol 25 mg tablet 25 mg PO BID #180 tabs 07/05/21 12/28/21 Rx apixaban 5 mg tablet (Eliquis) 5 mg PO BID #180 tabs 07/23/21 12/28/21 Rx lisinopril 5 mg tablet 5 mg PO DAILY #90 tabs 11/04/21 12/28/21 Rx Patient History Medical History Atrial fibrillation Cardiomyopathy Hypertension Impaired fasting glucose Third degree heart block Surgical History History of colonoscopy History of laparoscopy history of pyelotomy with lithotomy History of pacemaker Family History Father Old age Mother Old age Grandfather (Maternal) Myocardial infarction Other No significant family history Denies family history of Ovarian cancer Prostate cancer Breast cancer Lung cancer Colorectal cancer Stroke Social History Smoking Status: Never smoker Second Hand Exposure: No; Do You Dip or Chew Tobacco: No; Tobacco Cessation Education Requested by Patient: No Hx Alcohol Use: Yes Alcohol type: beer Alcohol Intake Frequency: 4 or More x per/Week Hx Substance Use: No Preferred Language: Taiwanese Communication Ability: Effective Visual Impairment: Limited Hearing Ability: Hard of Hearing Material Chaser Required: No Beliefs That Will Affect Care: None marital status: Single Current Living Situation: Alone current occupational status: retired How many Children do You have: 0 Other Information That Helps Us Care for You: No Feels Safe at Home: Yes Safety Concerns: Feels Safe At This Time Childhood Exposure to Second-Hand Smoke: Yes caffeine: Yes Dental Care, Regularly: No Physical Activity Frequency: 1-2 Times per Week Seatbelt Use: always Sunscreen Use: No Assistive Devices: None Physical Exam Physical Exam: On exam appears comfortable. Is excellent strength testing. Sensory symmetric and intact to cold and light touch. Results & Data ([facility]) Vital Signs (Past 12 Hours) Vital Signs Temp Pulse Resp BP Pulse Ox O2 Del Method 12/30/21 07:51 36.4 C L 64 16 161/86 H 98 Room Air
--- NOTE | 2021-12-30 22:17 | Hospitalist Progress Note ---
Date of Service December 30, 2021 Assessment & Plan (1) Acute right lumbar radiculopathy: Plan: Patient having difficulty ambulating. CT lumbar spine showed degenerative changes. ordered PT/OT: appears patient will require rehab given worsening instability that appears to have worsen in the past 3 days as per patient.. will assess for lyme. ortho spine consult: appreciate input consult pain management. 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 BP at goal (4) Atrial fibrillation: Plan: rate controlled. resume anticoagulation (5) Cardiomyopathy: Plan: Not in any acute CHF currently. will monitor Admission and Anticipated Discharge Date Admission Date: December 28, 2021 Subjective 86 yo male reports no new symptoms. Review of Systems Review of Systems: All systems reviewed & are unremarkable except as noted in HPI & below Physical Exam Constitutional: WD/WN, vitals as above Eyes: PERRL, conjunctivae normal, anicteric sclerae ENMT: external ear and nose normal, oropharynx normal Neck: trachea midline, no thyromegaly Respiratory: normal respiratory effort, lungs clear to auscultation Cardiovascular: RRR, no murmur, no edema Gastrointestinal (Abdomen): normal bowel sounds, soft, nontender, no hepatosplenomegaly Musculoskeletal: Head/Neck/Chest: + head abnormal to inspection and normocephalic Neurologic: PERRL, EOMI, accommodation nl, no face palsy, no dysarthria Psychiatric: A+Ox3, euthymic affect Lymphatic: no cervical or axillary lymphadenopathy Results & Data Results & Data ([facility]) Vital Signs (Past 12 Hours) Vital Signs Temp Pulse Resp BP BP Pulse Ox O2 Del Method 12/30/21 21:39 36.3 C L 71 16 127/88 95 Room Air 12/30/21 15:35 36.4 C L 90 16 156/95 H 96 Room Air PG Care Time/CCT Total # of Minutes Spent Total Time Spent with Patient: Total time spent is greater than 50% in coordination of care (as documented) at patient's floor/unit and/or counseling patient: Coding Level of Care Code 44413 Subseq Hosp Care Lvl 2 Diagnoses Acute right lumbar radiculopathy M54.16 BPH with obstruction/lower urinary tract symptoms N40.1; N13.8 Hypertension I10 Hypertension type: essential hypertension Atrial fibrillation I48.21 Atrial fibrillation type: permanent Cardiomyopathy I42.0 Cardiomyopathy type: dilated Time Spent (min) 25 (1) Atrial fibrillation Atrial fibrillation type: permanent Qualified Code(s): I48.21 - Permanent atrial fibrillation (2) Hypertension Hypertension type: essential hypertension Qualified Code(s): I10 - Essential (primary) hypertension (3) Cardiomyopathy Cardiomyopathy type: dilated Qualified Code(s): I42.0 - Dilated cardiomyopathy
[2021-12-31 06:42] LABS: Hemoglobin 14.3 g/dl (14.0-18.0); Mean Platelet Volume 11.2 fL (9.4-12.4); Platelet Count 262 K/uL (130-400); RDW Coefficient of Variation 13.9 % (11.5-14.5); RDW Standard Deviation 47.8 fL (36.4-46.3); Red Blood Count 4.47 M/uL (4.63-6.08); White Blood Count 9.84 K/ul (4.8-10.8)
[2021-12-31 07:04] LABS: BUN Creatinine Ratio 28.9 (10-20); Calcium 9.7 mg/dl (8.5-10.1); Creatinine Clr Calc Pharmacy 70.7 ml/min; Est GFR (African American) 95.1 ml/min
[2021-12-31] MEDS: carvediloL 25 MG TAB PO SCH ×2 (07:54→20:33)
[2021-12-31] MEDS: CHOLECALCIFEROL 1,000 UNITS 25 MCG TAB PO SCH (07:55)
[2021-12-31] MEDS: APIXABAN 5 MG TABLET PO SCH ×2 (07:55→20:33)
[2021-12-31] MEDS: lisinopril 5 MG TAB PO SCH (07:55)
[2021-12-31] MEDS: LIDOCAINE 5% 1 PATCH TD SCH (07:57)
[2021-12-31] MEDS: ACETAMINOPHEN 325 MG TAB PO PRN ×2 (09:19→15:19)
--- NOTE | 2021-12-31 10:07 | Pain Management Consultation ---
Date of Consultation December 31, 2021 Assessment & Plan (1) Acute pain of right hip: Plan Patient states that his pain has improved. He feels like the Tylenol, rest, and Lidocaine patches have provided adequate relief. He does not require any interventional procedures and feels ready for discharge. Thank you for the consultation. History of Present Illness Attending Physician: Ravi Lau History of Present Illness Mr. Andrews is an 86 year old male that came into the Emergency Department for pain in the right hip x 5 days. No injury. He describes a deep aching pain that was aggravated with weight bearing and walking. Laying supine does provide moderate pain relief. He has been receiving Lidocaine patch and Tylenol for pain relief. He denies any radicular symptoms. Patient is reporting some weakness due to being in bed for several days. At this time the patient denies any complaints. No back pain. Case discussed with Dr. Cotto Allergies Allergy/AdvReac Type Severity Reaction Status Date / Time ciprofloxacin Allergy Intermediate Rash Verified 12/28/21 17:13 Quinolones Allergy Intermediate CIPRO-RASH Verified 12/28/21 17:13 Home Medications Medication Instructions Recorded Confirmed Type clobetasol-emollient 0.05 % 1 appln topical BID PRN flare up 11/15/19 12/28/21 History topical cream #1 g sildenafil 100 mg tablet 100 mg PO UD PRN sexual activity 11/15/19 12/28/21 Rx #30 tabs cholecalciferol (vitamin D3) 50 50 mcg PO DAILY #30 caps 05/29/20 12/28/21 Rx mcg (2,000 unit) capsule carvedilol 25 mg tablet 25 mg PO BID #180 tabs 07/05/21 12/28/21 Rx apixaban 5 mg tablet (Eliquis) 5 mg PO BID #180 tabs 07/23/21 12/28/21 Rx lisinopril 5 mg tablet 5 mg PO DAILY #90 tabs 11/04/21 12/28/21 Rx Patient History Medical History Atrial fibrillation Cardiomyopathy Hypertension Impaired fasting glucose Third degree heart block Surgical History History of colonoscopy History of laparoscopy history of pyelotomy with lithotomy History of pacemaker Family History Father Old age Mother Old age Grandfather (Maternal) Myocardial infarction Other No significant family history Denies family history of Ovarian cancer Prostate cancer Breast cancer Lung cancer Colorectal cancer Stroke Social History Smoking Status: Never smoker Second Hand Exposure: No; Do You Dip or Chew Tobacco: No; Tobacco Cessation Education Requested by Patient: No Hx Alcohol Use: Yes Alcohol type: beer Alcohol Intake Frequency: 4 or More x per/Week Hx Substance Use: No Preferred Language: [place]guillan Communication Ability: Effective Visual Impairment: Limited Hearing Ability: Hard of Hearing Sales Associate Fishing Required: No Beliefs That Will Affect Care: None marital status: Single Current Living Situation: Alone current occupational status: retired How many Children do You have: 0 Other Information That Helps Us Care for You: No Feels Safe at Home: Yes Safety Concerns: Feels Safe At This Time Childhood Exposure to Second-Hand Smoke: Yes caffeine: Yes Dental Care, Regularly: No Physical Activity Frequency: 1-2 Times per Week Seatbelt Use: always Sunscreen Use: No Assistive Devices: None Physical Exam Physical Exam: GENERAL: This is an 86 year old male that is laying supine in the hospital bed, in no acute distress. HEAD/FACE: Normocephalic and atraumatic. EYES: No drainage or conjunctival injection. ENT: Nose without bleeding or discharge. Oral mucosa moist. NECK: Full ROM without apparent pain. No swelling or masses noted. RESPIRATORY: Patient with unlabored breathing. No signs of respiratory distress. CHEST/AXILLA: Chest movement symmetrical. No deformities noted. ABDOMEN/GI: No distension BACK: Moves without difficulty. No focal midline, facet joint, SI joint tenderness. No myofascial spasm or trigger points noted. SKIN: [place], warm and dry. No rash noted. MS/EXTREMITY: Full range of motion of the right hip. No greater trochanteric bursa tenderness. 5/5 strength of the bilateral lower extremities. NEURO: Alert and appears oriented. Speech is fluent. Cranial Nerves are grossly intact. PSYCH: Alert, pleasant, affect is calm Results ([facility]) Diagnostic Review CT Findings: CT lumbar spine wo con CLINICAL HISTORY: Right hip pain that radiates into right leg COMPARISON STUDY: No previous studies for comparison. TECHNIQUE: Axial images of the lumbar spine were obtained without IV contrast. Sagittal and coronal reconstructions were viewed. Automated exposure control was utilized for the study. A dose lowering technique was utilized adhering to the principles of ALARA. FINDINGS: Please note that the CT of the abdomen and pelvis will be reported separately. Moderate dextroscoliosis of the lumbar spine is noted. No acute fracture is noted. There is severe multilevel facet arthrosis, disc space narrowing and osteophytosis within the lumbar spine. The central canal and neural foramen are suboptimally assessed given CT technique. No suspicious osseous lesions are present. Renal calculi better depicted on the abdominal CT. There are trace bilateral pleural effusions. Sacroiliac joints are intact. IMPRESSION: 1. No acute lumbar spine fracture or subluxation. 2. Severe multilevel degenerative changes within the lumbar spine. Suboptimal evaluation of the central canal and neural foramen given CT technique. 3. Moderate dextroscoliosis of the lumbar spine. ACT 112: Negative or not required by law. Electronically signed by: Tucker Byrnes M.D. 12/28/2021 3:[address] OF THE ABDOMEN AND PELVIS WITHOUT CONTRAST CLINICAL HISTORY: Right hip pain. COMPARISON STUDY: IVP June 25, 2010. Renal ultrasound August 21, 2006. TECHNIQUE: Axial images of the abdomen and pelvis were obtained without IV contrast. Images were reviewed in the axial, sagittal, and coronal planes. Automated exposure control was utilized for the study. A dose lowering technique was utilized adhering to the principles of ALARA. FINDINGS: Emphysema is noted within the lower lungs. No pneumatosis, free air or portal venous gas is present. Moderate left hydronephrosis is noted. This appears decreased compared to IVP of June 25, 2010. Left renal calculi measure up to 1.7 cm. There is a 4 mm right renal calculus. There are no ureteral calculi. There is no right hydronephrosis. Evaluation of the remainder of the abdomen and pelvis is suboptimal on this unenhanced exam. The liver, spleen, adrenal glands and pancreas are unremarkable. There is mild gaseous distention of the sigmoid colon. However, there is no evidence for a bowel obstruction. Fat-containing umbilical hernia is present. The appendix is normal. There is no lymphadenopathy or ascites. No biliary or pancreatic ductal dilatation is present. Dextroscoliosis of the lumbar spine is noted. Please note that the lumbar spine CT will be reported separately. IMPRESSION: 1. Bilateral nephrolithiasis. No ureteral calculi. 2. Moderate left hydronephrosis, decreased since IVP of June 25, 2010. This is likely chronic. 3. No bowel obstruction. Normal appendix. No bowel wall thickening on unenhanced exam. ACT 112: Negative or not required by law. Electronically signed by: Tucker Byrnes M.D. 12/28/2021 3:33 PM Radiology Findings: XR femur RT 2V routine CLINICAL HISTORY: R hip pain that radiates into R leg COMPARISON: None FINDINGS: Alignment of the right hip and right knee is anatomic. There is no acute fracture within the right femur. There is no osseous lesion. There is mild joint space narrowing and osteophytosis of the right hip. There is no evidence for avascular necrosis of the right femoral head. IMPRESSION: 1. No fracture within the right femur. 2. Mild right hip osteoarthritis.
--- NOTE | 2021-12-31 22:14 | Hospitalist Progress Note ---
Date of Service December 31, 2021 Assessment & Plan (1) Acute right lumbar radiculopathy: Plan: Patient having difficulty ambulating. CT lumbar spine showed degenerative changes. ordered PT/OT: appears patient will require rehab given worsening instability that appears to have worsen in the past 3 days as per patient.. will assess for lyme. ortho spine consult: appreciate input consult pain management.: no intervention awaiting placement patient reports he will not wait over weekend for placement. will consider waiting another day. If no beds, will want to be discharged home on home health. Patient shows understanding of risk. 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 BP at goal (4) Atrial fibrillation: Plan: rate controlled. resume anticoagulation (5) Cardiomyopathy: Plan: Not in any acute CHF currently. will monitor Admission and Anticipated Discharge Date Admission Date: December 28, 2021 Subjective Patient reports no new symptoms. Review of Systems Review of Systems: All systems reviewed & are unremarkable except as noted in HPI & below Physical Exam Constitutional: WD/WN, vitals as above Eyes: PERRL, conjunctivae normal, anicteric sclerae ENMT: external ear and nose normal, oropharynx normal Neck: trachea midline, no thyromegaly Respiratory: normal respiratory effort, lungs clear to auscultation Cardiovascular: RRR, no murmur, no edema Gastrointestinal (Abdomen): normal bowel sounds, soft, nontender, no hepatosplenomegaly Musculoskeletal: Head/Neck/Chest: + head abnormal to inspection and normocephalic Neurologic: PERRL, EOMI, accommodation nl, no face palsy, no dysarthria Psychiatric: A+Ox3, euthymic affect Lymphatic: no cervical or axillary lymphadenopathy Results & Data Results & Data ([facility]) Vital Signs (Past 12 Hours) Vital Signs Temp Pulse Resp BP Pulse Ox O2 Del Method 12/31/21 21:12 36.4 C L 62 14 110/71 94 Room Air 12/31/21 20:32 61 125/69 PG Care Time/CCT Total # of Minutes Spent Total Time Spent with Patient: Total time spent is greater than 50% in coordination of care (as documented) at patient's floor/unit and/or counseling patient: Coding Level of Care Code 23598 Subseq Hosp Care Lvl 2 Diagnoses Acute right lumbar radiculopathy M54.16 BPH with obstruction/lower urinary tract symptoms N40.1; N13.8 Hypertension I10 Hypertension type: essential hypertension Atrial fibrillation I48.21 Atrial fibrillation type: permanent Cardiomyopathy I42.0 Cardiomyopathy type: dilated Time Spent (min) 25 (1) Atrial fibrillation Atrial fibrillation type: permanent Qualified Code(s): I48.21 - Permanent atrial fibrillation (2) Hypertension Hypertension type: essential hypertension Qualified Code(s): I10 - Essential (primary) hypertension (3) Cardiomyopathy Cardiomyopathy type: dilated Qualified Code(s): I42.0 - Dilated cardiomyopathy
[2022-01-01] MEDS: lisinopril 5 MG TAB PO SCH (08:34)
[2022-01-01] MEDS: carvediloL 25 MG TAB PO SCH ×2 (08:34→20:03)
[2022-01-01] MEDS: CHOLECALCIFEROL 1,000 UNITS 25 MCG TAB PO SCH (08:34)
[2022-01-01] MEDS: APIXABAN 5 MG TABLET PO SCH ×2 (08:34→20:03)
[2022-01-01] MEDS: LIDOCAINE 5% 1 PATCH TD SCH (10:36)
--- NOTE | 2022-01-01 21:52 | Hospitalist Progress Note ---
Date of Service January 01, 2022 Assessment & Plan (1) Acute right lumbar radiculopathy: Plan: Patient having difficulty ambulating. CT lumbar spine showed degenerative changes. ordered PT/OT: appears patient will require rehab given worsening instability that appears to have worsen in the past 3 days as per patient.. will assess for lyme. ortho spine consult: appreciate input consult pain management.: no intervention awaiting placement patient reports he will not wait over weekend for placement. On 01/01 patient appears more likely to wait for rehab. will consider waiting another day for placement for 01/02 If no beds, patient may consider discharge home on home health. Patient shows understanding of risk. 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 BP at goal (4) Atrial fibrillation: Plan: rate controlled. resume anticoagulation (5) Cardiomyopathy: Plan: Not in any acute CHF currently. will monitor Admission and Anticipated Discharge Date Admission Date: December 28, 2021 Subjective 86 yo male reports feeling [place]fr[place]ale. No new symptoms. Review of Systems Review of Systems: All systems reviewed & are unremarkable except as noted in HPI & below Physical Exam Constitutional: WD/WN, vitals as above Eyes: PERRL, conjunctivae normal, anicteric sclerae ENMT: external ear and nose normal, oropharynx normal Neck: trachea midline, no thyromegaly Respiratory: normal respiratory effort, lungs clear to auscultation Cardiovascular: RRR, no murmur, no edema Gastrointestinal (Abdomen): normal bowel sounds, soft, nontender, no hepatosplenomegaly Musculoskeletal: Head/Neck/Chest: normocephalic Neurologic: PERRL, EOMI, accommodation nl, no face palsy, no dysarthria Psychiatric: A+Ox3, euthymic affect Lymphatic: no cervical or axillary lymphadenopathy Results & Data Results & Data ([facility]) Vital Signs (Past 12 Hours) Vital Signs Temp Pulse Resp BP Pulse Ox O2 Del Method 01/01/22 20:08 36.4 C L 64 16 123/77 97 Room Air 01/01/22 15:13 36.6 C 62 15 118/69 95 Room Air PG Care Time/CCT Total # of Minutes Spent Total Time Spent with Patient: Total time spent is greater than 50% in coordination of care (as documented) at patient's floor/unit and/or counseling patient: Coding Level of Care Code 97709 Subseq Hosp Care Lvl 2 Diagnoses Acute right lumbar radiculopathy M54.16 BPH with obstruction/lower urinary tract symptoms N40.1; N13.8 Hypertension I10 Hypertension type: essential hypertension Atrial fibrillation I48.21 Atrial fibrillation type: permanent Cardiomyopathy I42.0 Cardiomyopathy type: dilated (1) Atrial fibrillation Atrial fibrillation type: permanent Qualified Code(s): I48.21 - Permanent atrial fibrillation (2) Hypertension Hypertension type: essential hypertension Qualified Code(s): I10 - Essential (primary) hypertension (3) Cardiomyopathy Cardiomyopathy type: dilated Qualified Code(s): I42.0 - Dilated cardiomyopathy
[2022-01-02] MEDS: carvediloL 25 MG TAB PO SCH ×2 (09:14→20:00)
[2022-01-02] MEDS: APIXABAN 5 MG TABLET PO SCH ×2 (09:14→20:01)
[2022-01-02] MEDS: CHOLECALCIFEROL 1,000 UNITS 25 MCG TAB PO SCH (09:14)
[2022-01-02] MEDS: LIDOCAINE 5% 1 PATCH TD SCH (09:15)
[2022-01-02] MEDS: lisinopril 5 MG TAB PO SCH (09:15)
[2022-01-02] MEDS: ACETAMINOPHEN 325 MG TAB PO PRN (09:57)
--- NOTE | 2022-01-02 17:37 | Hospitalist Progress Note ---
Date of Service January 02, 2022 Assessment & Plan (1) Acute right lumbar radiculopathy: Plan: Patient having difficulty ambulating. CT lumbar spine showed degenerative changes. ordered PT/OT: appears patient will require rehab given worsening instability that appears to have worsen in the past 3 days as per patient. Lyme IgG/IgM negative B12 level < 400 on outpatient labs in November, recommend B12 1000 mcg IM while here for up to three days then PO supplementation as may be contributing towards being unbalanced Patient is medically stable for discharge pending placement at this time. 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 Latest echocardiogram shows left ventricular systolic function as normal in September. Continue on his usual carvedilol 25mg PO BID and lisinopril 5mg PO daily Euvolemic on exam (4) Hypertension: Plan: Continue carvedilol and lisinopril as above (5) Atrial fibrillation: Plan: rate controlled, ventricular paced resume anticoagulation (6) Folate deficiency: Plan: Mildly low on outpatient labs Start supplementation with folate 1mg PO daily Plan VTE Prophylaxis - Eliquis Diet - heart healthy Disposition - medically stable for discharge pending placement Admission and Anticipated Discharge Date Admission Date: December 28, 2021 Subjective No new concerns or questions. He reports pain is under control with acetaminophen and lidocaine patch. He denies any current pain when seen. PT assessed as unsteady on his feet and recommending rehabilitation at this time. Medically stable for discharge pending placement. Review of Systems Review of Systems: All systems reviewed & are unremarkable except as noted in Subjective Physical Exam Constitutional: WD/WN, vitals as above Respiratory: normal respiratory effort, lungs clear to auscultation Cardiovascular: RRR, no murmur, no edema Gastrointestinal (Abdomen): normal bowel sounds, soft, nontender, no hepatosplenomegaly Neurologic: moves all extremities and awake; not confused Psychiatric: A+Ox3, euthymic affect Results & Data Results & Data ([facility]) Vital Signs (Past 12 Hours) Vital Signs Temp Pulse Resp BP Pulse Ox 01/02/22 08:00 36.6 C 116 H 16 122/80 93 PG Care Time/CCT Total # of Minutes Spent Total Time Spent with Patient: Total time spent is greater than 50% in coordination of care (as documented) at patient's floor/unit and/or counseling patient: Coding Level of Care Code 35502 Subseq Hosp Care Lvl 2 Diagnoses Acute right lumbar radiculopathy M54.16 BPH with obstruction/lower urinary tract symptoms N40.1; N13.8 Cardiomyopathy I42.0 Cardiomyopathy type: dilated Hypertension I10 Hypertension type: essential hypertension Atrial fibrillation I48.21 Atrial fibrillation type: permanent Folate deficiency E53.8 (1) Atrial fibrillation Atrial fibrillation type: permanent Qualified Code(s): I48.21 - Permanent atrial fibrillation (2) Hypertension Hypertension type: essential hypertension Qualified Code(s): I10 - Essential (primary) hypertension (3) Cardiomyopathy Cardiomyopathy type: dilated Qualified Code(s): I42.0 - Dilated cardiomyopathy
[2022-01-03] MEDS: APIXABAN 5 MG TABLET PO SCH ×2 (09:15→20:22)
[2022-01-03] MEDS: carvediloL 25 MG TAB PO SCH ×2 (09:15→20:22)
[2022-01-03] MEDS: CHOLECALCIFEROL 1,000 UNITS 25 MCG TAB PO SCH (09:16)
[2022-01-03] MEDS: FOLIC ACID 1 MG TAB PO SCH (09:16)
[2022-01-03] MEDS: lisinopril 5 MG TAB PO SCH (09:17)
[2022-01-03] MEDS: CYANOCOBALAMIN 1000 MCG/ML VIAL IM SCH (09:17)
--- NOTE | 2022-01-03 15:44 | Discharge Summary ---
Date of Service January 03, 2022 Admission HPI Per Admitting Provider This is an 86-year-old male that presents to the emergency department comes to the ED with a male friend for right hip pain. Patient notes that this has been worsening for past few days. No previous hip trauma. Patient denies any fever, chills, chest pain, SOB/ Patient states pain in his posterior hip and it radiates down into his right foot. He also reports numbness. Patient denies any lower extremity weakness, bowel or bladder incontinence, numbness or tingling in genital Discharge Data Allergies Allergy/AdvReac Type Severity Reaction Status Date / Time ciprofloxacin Allergy Intermediate Rash Verified 12/28/21 17:13 Quinolones Allergy Intermediate CIPRO-RASH Verified 12/28/21 17:13 Consultations 12/28/21 18:23 ED Decision to Admit Stat 12/30/21 08:47 Consult Orthopedic Surgery Routine 12/30/21 12:32 Consult Pain Management Routine Ordered Studies 12/28/21 12:07 CT lumbar spine wo con Stat 12/28/21 12:16 CT abd pelvis wo con Stat Hospital Course (1) Acute right lumbar radiculopathy: Patient having difficulty ambulating. CT lumbar spine showed degenerative changes. ordered PT/OT: appears patient will require rehab given worsening instability that appears to have worsen in the past 3 days as per patient. Lyme IgG/IgM negative B12 level < 400 on outpatient labs in November, recommend B12 1000 mcg IM while here for up to three days then PO supplementation as may be contributing towards being unbalanced Patient is medically stable for discharge pending placement at this time. 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 Latest echocardiogram shows left ventricular systolic function as normal in September. Continue on his usual carvedilol 25mg PO BID and lisinopril 5mg PO daily Euvolemic on exam (4) Hypertension: Continue carvedilol and lisinopril as above (5) Atrial fibrillation: rate controlled, ventricular paced resume anticoagulation (6) Folate deficiency: Mildly low on outpatient labs Start supplementation with folate 1mg PO daily Plan VTE Prophylaxis - Eliquis Diet - heart healthy Disposition - medically stable for discharge pending placement Discharge Plan Discharge Items Patient Disposition: Against Medical Advice Reason For Visit: BACK PAIN Condition on Discharge: Fair Activity: Per Instructions section Lifting: Wait until after follow-up appointment Weightbearing: Full weightbearing Non-emergency contact: Primary Care Provider Follow-up/Referrals: Truman Valle MD [Primary Care Provider] - [employer] Associate Professor Of Medicine Provider Instructions: You were admitted to [facility] December 28 - 2021 due to back pain. You were diagnosed with right sided lumbar radiculopathy (nerve pain coming from your back). This was treated with acetaminophen and lidocaine patch. Please continue to take acetaminophen 1000mg every eight hours as needed for pain. You were also diagnosed with B12 and folate deficiency on recent outpatient labs and supplementation has been ordered to help with this. Please continue to follow up with your primary care provider for management of this as B12 deficiency can effect your balance. Physical therapy and occupational therapy assessments deemed you unsafe to return home but you are walking so much that you also do not qualify for inpatient rehabilitation. On discussion, you declined personal chcf and wished to return to independent living at this time. This is against medical advice given our physical therapist recommendations. However we will set you up with home health on discharge to help keep you as safe as possible. We would also recommend a friend stay with you if possible. Pending Studies at Discharge: No Stand-Alone Forms: [facility], Smoking Cessation Medications and DC Order Prescriptions: New cyanocobalamin (vitamin B-12) 1,000 mcg tablet 1,000 mcg PO DAILY Qty: 30 0RF folic acid 1 mg tablet 1 mg PO DAILY Qty: 30 0RF acetaminophen 500 mg tablet 1,000 mg PO Q8H PRN (Reason: fever or pain) Qty: 30 0RF Continued cholecalciferol (vitamin D3) 50 mcg (2,000 unit) capsule 50 mcg PO DAILY Qty: 30 0RF carvedilol 25 mg tablet 25 mg PO BID Qty: 180 3RF Rx Instructions: must administer with a meal/food Eliquis 5 mg tablet 5 mg PO BID Qty: 180 3RF sildenafil 100 mg tablet 100 mg PO UD PRN (Reason: sexual activity) Qty: 30 3RF clobetasol-emollient 0.05 % cream 1 appln topical BID PRN (Reason: flare up) Qty: 1 lisinopril 5 mg tablet 5 mg PO DAILY Qty: 90 3RF Discharge Orders: Left Against Medical Advice (Routine); Ordered 01/03/22 Ordered By: Jovi Cates Admission Data Admit Date/Time: 12/28/21 17:31 Attending Provider: Jovi Cates Admit Provider: Ravi Lau Primary Care Provider: Turman Valle Other Providers: Ravi Lau ; Tom Jeffrey ; Echo Camacho ; Sindhu Gomez at [place] ; [facility] Coding Diagnoses Acute right lumbar radiculopathy M54.16 BPH with obstruction/lower urinary tract symptoms N40.1; N13.8 Cardiomyopathy I42.0 Cardiomyopathy type: dilated Hypertension I10 Hypertension type: essential hypertension Atrial fibrillation I48.21 Atrial fibrillation type: permanent Folate deficiency E53.8
[2022-01-03] MEDS: LIDOCAINE 5% 1 PATCH TD SCH (17:38)
[2022-01-04] MEDS: carvediloL 25 MG TAB PO SCH (08:40)
[2022-01-04] MEDS: FOLIC ACID 1 MG TAB PO SCH (08:41)
[2022-01-04] MEDS: APIXABAN 5 MG TABLET PO SCH (08:41)
[2022-01-04] MEDS: lisinopril 5 MG TAB PO SCH (08:41)
[2022-01-04] MEDS: CHOLECALCIFEROL 1,000 UNITS 25 MCG TAB PO SCH (08:41)
[2022-01-04] MEDS: LIDOCAINE 5% 1 PATCH TD SCH (08:42)
[2022-01-04] MEDS: CYANOCOBALAMIN 1000 MCG/ML VIAL IM SCH (08:42)
--- NOTE | 2022-01-04 10:34 | Hospitalist Progress Note ---
Date of Service January 03, 2022 Assessment & Plan (1) Acute right lumbar radiculopathy: Plan: Patient having difficulty with his balance. CT lumbar spine showed degenerative changes. ordered PT/OT: appears patient will require rehab given worsening instability that appears to have worsen in the past 3 days as per patient. Lyme IgG/IgM negative B12 level < 400 on outpatient labs in November, recommend B12 1000 mcg IM while here for up to three days then PO supplementation as may be contributing towards being unbalanced Patient is medically stable for discharge pending placement at this time. Planning on discharge against medical advice today however he does not have transportation therefore will plan on discharge tomorrow. 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 Latest echocardiogram shows left ventricular systolic function as normal in September. Continue on his usual carvedilol 25mg PO BID and lisinopril 5mg PO daily Euvolemic on exam (4) Hypertension: Plan: Continue carvedilol and lisinopril as above (5) Atrial fibrillation: Plan: rate controlled, ventricular paced resume anticoagulation (6) Folate deficiency: Plan: Mildly low on outpatient labs Start supplementation with folate 1mg PO daily Plan VTE Prophylaxis - Eliquis Diet - heart healthy Disposition - medically stable for discharge pending transportation Admission and Anticipated Discharge Date Admission Date: December 28, 2021 Subjective Discussed PT assessed patient as too unsafe to go home but also he is walking too far for rehabilitation. He would be leaving against medical advice if he was to go home vs. personal [facility] placement. Patient elects for going home however after discussion with his friends he is unable to get transport for today. Review of Systems Review of Systems: All systems reviewed & are unremarkable except as noted in Subjective Physical Exam Constitutional: WD/WN, vitals as above Respiratory: normal respiratory effort, lungs clear to auscultation Cardiovascular: RRR, no murmur, no edema Gastrointestinal (Abdomen): normal bowel sounds, soft, nontender, no hepatosplenomegaly Neurologic: moves all extremities and awake; not confused Psychiatric: A+Ox3, euthymic affect Results & Data Results & Data ([facility]) Vital Signs (Past 12 Hours) Vital Signs Temp Pulse Resp BP Pulse Ox O2 Del Method 01/04/22 07:36 36.5 C 61 16 108/62 94 Room Air 01/04/22 06:18 37.4 C PG Care Time/CCT Total # of Minutes Spent Total Time Spent with Patient: Total time spent is greater than 50% in coordination of care (as documented) at patient's floor/unit and/or counseling patient: Coding Level of Care Code 63300 Subseq Hosp Care Lvl 1 Diagnoses Acute right lumbar radiculopathy M54.16 BPH with obstruction/lower urinary tract symptoms N40.1; N13.8 Cardiomyopathy I42.0 Cardiomyopathy type: dilated Hypertension I10 Hypertension type: essential hypertension Atrial fibrillation I48.21 Atrial fibrillation type: permanent Folate deficiency E53.8 (1) Atrial fibrillation Atrial fibrillation type: permanent Qualified Code(s): I48.21 - Permanent atrial fibrillation (2) Hypertension Hypertension type: essential hypertension Qualified Code(s): I10 - Essential (primary) hypertension (3) Cardiomyopathy Cardiomyopathy type: dilated Qualified Code(s): I42.0 - Dilated cardiomyopathy
[2022-01-06] MEDS ORDERED: CYANOCOBALAMIN (B-12) 500 MCG TABLET PO SCH (09:00)
--- NOTE | 2022-01-15 12:16 | Discharge Summary ---
Date of Service January 04, 2022 Principal Diagnosis Lumbar radiculopathy Discharge Exam Constitutional WD/WN, vitals as above Respiratory normal respiratory effort, lungs clear to auscultation Cardiovascular RRR, no murmur, no edema Gastrointestinal (Abdomen) normal bowel sounds, soft, nontender, no hepatosplenomegaly Musculoskeletal no cyanosis or clubbing, extremities motor strength 5/5 (no pain on straight leg raise b/l) Skin no rashes, warm and dry Neurologic moves all extremities and awake; not confused Discharge Data Allergies Allergy/AdvReac Type Severity Reaction Status Date / Time ciprofloxacin Allergy Intermediate Rash Verified 12/28/21 17:13 Quinolones Allergy Intermediate CIPRO-RASH Verified 12/28/21 17:13 Consultations 12/28/21 18:23 ED Decision to Admit Stat 12/30/21 08:47 Consult Orthopedic Surgery Routine 12/30/21 12:32 Consult Pain Management Routine Ordered Studies 12/28/21 12:07 CT lumbar spine wo con Stat 12/28/21 12:16 CT abd pelvis wo con Stat Hospital Course (1) Acute right lumbar radiculopathy: Moshe Andrews is an 86 year old male admitted to [facility] December 28 - 2021 due to back pain. He was diagnosed with right sided lumbar radiculopathy. This was treated with acetaminophen and lidocaine patch. He was advised to take acetaminophen 1000mg every eight hours as needed for pain. Discharge home was delayed due to physical therapy assessments concerned about his risk of returning home alone however his strength improved during his inpatient stay and he is no longer qualifies for inpatient rehabilitation. Home health will be set up at home for ongoing physical therapy. He was also diagnosed with B12 and folate deficiency on recent outpatient labs and supplementation has been ordered to help with this. 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: (3) Cardiomyopathy: (4) Hypertension: (5) Atrial fibrillation: (6) Folate deficiency: Total Time Total Time Spent Total Time Spent (In Minutes): 40 Discharge Plan Discharge Items Patient Disposition: Home - Home Health Services Reason For Visit: BACK PAIN Discharge Diagnosis: Lumbar radiculopathy Condition on Discharge: Fair Activity: Per Instructions section Lifting: Wait until after follow-up appointment Weightbearing: Full weightbearing Non-emergency contact: Primary Care Provider Call non-emergency contact if: you have any medication questions and your symptoms worsen Follow-up/Referrals: Truman Valle MD [Primary Care Provider] - 01/13/22 11:00 am Diet: Heart Healthy Addtl Attending Provider Instructions: You were admitted to [facility] December 28 - 2021 due to back pain. You were diagnosed with right sided lumbar radiculopathy (nerve pain coming from your back). This was treated with acetaminophen and lidocaine patch. Please continue to take acetaminophen 1000mg every eight hours as needed for pain. You were also diagnosed with B12 and folate deficiency on recent outpatient labs and supplementation has been ordered to help with this. Please continue to follow up with your primary care provider for management of this as B12 deficiency can effect your balance. Pending Studies at Discharge: No Stand-Alone Forms: My [facility], Smoking Cessation Medications and DC Order Prescriptions: New cyanocobalamin (vitamin B-12) 1,000 mcg tablet 1,000 mcg PO DAILY Qty: 30 0RF folic acid 1 mg tablet 1 mg PO DAILY Qty: 30 0RF acetaminophen 500 mg tablet 1,000 mg PO Q8H PRN (Reason: fever or pain) Qty: 30 0RF Continued cholecalciferol (vitamin D3) 50 mcg (2,000 unit) capsule 50 mcg PO DAILY Qty: 30 0RF carvedilol 25 mg tablet 25 mg PO BID Qty: 180 3RF Rx Instructions: must administer with a meal/food Eliquis 5 mg tablet 5 mg PO BID Qty: 180 3RF sildenafil 100 mg tablet 100 mg PO UD PRN (Reason: sexual activity) Qty: 30 3RF clobetasol-emollient 0.05 % cream 1 appln topical BID PRN (Reason: flare up) Qty: 1 lisinopril 5 mg tablet 5 mg PO DAILY Qty: 90 3RF Discharge Orders: Discharge Order (Routine); Ordered 01/04/22 Ordered By: Jovi Cates Admission Data Admit Date/Time: 12/28/21 17:31 Attending Provider: Jovi Cates Admit Provider: Ravi Lau Primary Care Provider: Truman Valle Other Providers: Ravi Lau ; Tom Jeffrey ; Echo Camacho ; Sindhu Gomez [facility] ; [facility] Other Interventions: Discharge Summary Assessment (RN) Last Done: 01/04/22 15:35 Coding Level of Care Code D/C DAY MANAGEMENT >30 MINS Diagnoses Acute right lumbar radiculopathy M54.16 BPH with obstruction/lower urinary tract symptoms N40.1; N13.8 Cardiomyopathy I42.0 Cardiomyopathy type: dilated Hypertension I10 Hypertension type: essential hypertension Atrial fibrillation I48.21 Atrial fibrillation type: permanent Folate deficiency E53.8 Home Health Attestation I certify that this patient is under my care and that I, or a physicians shabnam fowler working with me, had a face to-face encounter that meets the home health [id number] encounter requirements with this patient. The encounter with the patient was in whole, or in part, for the following medical condition, which is the primary reason for home health care (list medical condition): I certify that, based on my findings, the following services are medically necessary home health services: My clinical findings support the need for the above services because: Further, I certify that my clinical findings support that this patient is homebound (i.e. absences from home require considerable and taxing effort and are for medical reasons or amish services or infrequently or of short duration when for other reasons) because: Certification for Home Health Services: Based on the above findings, I certify that this patient is confined to the home and needs intermittent prison care, physical therapy and/or speech therapy or continues to need occupational therapy. The patient is under my care, and I have initiated the establishment of the plan of care. This patient will be followed by a physician who will periodically review the plan of care.
== END 2022-01-04 16:20 | disposition home health service (06) | DRG 552 ==
LOC: ED 11:30 → SUATTDRO 17:31 → 3W 17:31

== ENCOUNTER 2022-07-20 19:30 | Inpatient (IN) ==
--- NOTE | 2022-07-20 19:40 | Emergency Department Note ---
Impression & Plan Elevated lactic acid level, Fall, Acute dehydration, Hypothermia, Elevated CK ED Provider Note NAME: GRAEME HAIRSTON AGE: 87 SEX: M : 1935 ARRIVES VIA: Ambulance INFORMANT: Patient, ED PROVIDER(S): Jabari Manuel MD CHIEF COMPLAINT: Found down, fall MEDICAL DECISION MAKING: Patient presented due to concern for hypothermia and associated pain with a prolonged downtime. Next IV was established blood work was obtained the patient was ordered empiric antibiotics lactate ordered in addition to IV fluids and fluid warmer. Bear hugger applied given the patient's hypothermia. Initially was reported the patient's saturations may have been in the 80s but he was placed on room oxygen and was satting in the 90s. The patient's blood work showed a white count of 15 with a normal hemoglobin and platelet count. The patient's kidney function was unremarkable with prerenal azotemia lactate is 6. Patient's initial total CK of 1300. Patient's imaging did not show any acute concerning findings at this time. Given the patient's significant lactic acidosis prolonged downtime and hypothermia I did speak with the on-call hospital service Dr. Villeda and the patient was admitted to the medicine service. Critical Care: I have personally spent 75 minutes of critical care time in direct management of this patient. This includes bedside care, interpretation of diagnostic studies, and testing, discussion with consultants, patient, and family members, and other require inpatient management activities. This 75 minutes is in excess of all separately billable procedures. Prior /Outside records reviewed: I did review discharge summary from Dr. Cates from December 2021. The patient did have lumbar radiculopathy at that time. Patient does have a known history of BPH cardiomyopathy hypertension A-fib and folate deficiency. Differential diagnosis: Fracture, dislocation, contusion, intra-abdominal, pneumothorax, intrathoracic, intracranial, neurologic, compartment syndrome, rhabdomyolysis, as well as other pathologies. Diagnostics, as interpreted by me: ECG: V paced rhythm, rate 93 wide QRS left lower branch block pattern. Cardiac monitoring: An order was placed for continuous cardiac monitoring. The monitor shows a rate of 72 with sinus rhythm. Patient was placed on pulse oximetry Medical decision rules: None Imaging studies: See below I informally reviewed the patient's CT of the head which not show any obvious ICH HPI: Patient presents from his home. History is somewhat limited given the acuity of the patient's condition. Additional history was provided by neighbor who found the patient. Reportedly was patient was found in their communal laundry room and the patient last remembers him being in there around noon. The patient was found to may have around 6 PM. The patient was found facedown. Patient believes that he did fall but was unable to get up. The patient does complain of diffuse discomfort throughout. Patient does take blood thinners per review of patient's medication list. 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 PAST MEDICAL HISTORY: See Below PAST SURGICAL HISTORY: See Below SOCIAL HISTORY: See Below HOME MEDICATIONS: See Below ALLERGIES: See Below VITALS: See Below PHYSICAL EXAMINATION: GENERAL: Mildly uncomfortable in appearance, nasal cannula in place, EYE EXAM: Normal conjunctiva. PERRL, no anisocoria and EOM's grossly intact w/o pain. Oropharynx: Dry mucous membranes, missing many teeth. NECK: Supple, no nuchal rigidity, no adenopathy, non-tender. No signs of meningismus. FROM of the neck with good chin to chest and neck extension. No st ridor. LUNGS: Clear to auscultation. Normal chest wall mechanics. HEART: NSR, no MRG. ABDOMEN: Abdomen soft, non-tender, no masses, no rebound or guarding. BACK: No CVA TTP. SKIN: Skin changes likely secondary to fall versus him being down to the ground are present over the bilateral knees as well as anterior chest UPPER EXTREMITIES: Upper extremities are grossly normal. LOWER EXTREMITIES: Mild discomfort to the bilateral hips, skin changes noted over the anterior knees without significant discomfort. NEURO EXAM: Awake and alert follows basic commands moves all 4 extremities but weakly. Past Med/Surg History Medical History (Updated 07/22/22 @ 17:48 by Jabari Manuel MD) Atrial fibrillation Cardiomyopathy Hypertension Impaired fasting glucose Third degree heart block Surgical History History of colonoscopy History of laparoscopy history of pyelotomy with lithotomy History of pacemaker Family History Father Old age Mother Old age Grandfather (Maternal) Myocardial infarction Other No significant family history Denies family history of Ovarian cancer Prostate cancer Breast cancer Lung cancer Colorectal cancer Stroke Social History Smoking Status: Never smoker Second Hand Exposure: No; Do You Dip or Chew Tobacco: No; Hx Alcohol Use: Yes Alcohol type: beer Alcohol Intake Frequency: 4 or More x per/Week Hx Substance Use: No Preferred Language: Mohawk Communication Ability: Effective Visual Impairment: Limited Hearing Ability: Hard of Hearing [employer]rop [employer] Scientist Required: No Beliefs That Will Affect Care: None marital status: Single Current Living Situation: Alone current occupational status: retired How many Children do You have: 0 Other Information That Helps Us Care for You: No Feels Safe at Home: Yes Safety Concerns: Feels Safe At This Time Childhood Exposure to Second-Hand Smoke: Yes caffeine: Yes Dental Care, Regularly: No Physical Activity Frequency: 1-2 Times per Week Seatbelt Use: always Sunscreen Use: No Assistive Devices: Wheelchair Allergies Allergies Allergy/AdvReac Type Severity Reaction Status Date / Time ciprofloxacin Allergy Intermediate Rash Verified 07/20/22 23:37 Quinolones Allergy Intermediate CIPRO-RASH Verified 07/20/22 23:37 Home Meds Home Medications Medication Instructions Recorded Confirmed clobetasol-emollient 0.05 % 1 appln topical BID PRN flare up 11/15/19 07/20/22 topical cream #1 g Previous Rx's Medication Instructions Recorded cholecalciferol (vitamin D3) 50 50 mcg PO DAILY #30 caps 05/29/20 mcg (2,000 unit) capsule carvedilol 25 mg tablet 25 mg PO BID #180 tabs 07/05/21 cyanocobalamin (vitamin B-12) 1,000 mcg PO DAILY #30 tabs 01/03/22 1,000 mcg tablet lisinopril 5 mg tablet 5 mg PO DAILY #100 tabs 02/10/22 apixaban 5 mg tablet (Eliquis) 5 mg PO BID #180 tabs 02/11/22 folic acid 1 mg tablet 1 mg PO DAILY #90 tabs 02/19/22 Results & Data (ED) Home Medications Current Medication List: was personally reviewed by me Laboratory Data Attestation: I reviewed the patient's lab results. 07/22/22 09:12 07/22/22 09:12 Lab Results 07/20/22 07/20/22 07/20/22 Range/Units 20:20 20:20 20:20 WBC (4.8-10.8) K/ul RBC (4.70-6.10) M/uL Hgb (14.0-18.0) g/dl POC Hgb (14.0-18.0) g/dl Hct (42.0-52.0) % POC Hct (42-52) % MCV (80.0-100.0) fL MCH (25.0-34.0) pg MCHC (32.0-36.0) g/dL RDW Std Deviation (36.4-46.3) fL RDW Coeff of Adolfo (11.5-14.5) % Plt Count (130-400) K/uL MPV (9.4-12.4) fL Immature Gran % (Auto) % Neut % (Auto) % Lymph % (Auto) % [place] % (Auto) % Eos % (Auto) % Baso % (Auto) % Neut # (Auto) (1.40-6.50) K/uL Lymph # (Auto) (1.2-3.4) K/uL [place] # (Auto) (0.11-0.59) K/uL Eos # (Auto) (0-0.50) K/uL Baso # (Auto) (0-0.2) K/uL Immature Gran # (Auto) (0.01-0.20) K/uL PT 13.2 H (9.0-12.0) Seconds INR 1.2 H (0.9-1.1) POC Sodium (135-144) mmol/L Sodium 143 (136-145) mmol/L POC Potassium (3.3-5.0) mmol/L Potassium 4.9 (3.5-5.1) mmol/L POC Chloride (101-112) mmol/L Chloride 104 (98-107) mmol/L Carbon Dioxide 24 (21-32) mmol/L POC Total CO2 (24-31) mmol/L Anion Gap 15 H (3-11) POC Anion Gap (16-25) mmol/L POC BUN (7-18) mg/dl BUN 57 H (6-23) mg/dl Creatinine 1.04 (0.6-1.4) mg/dl POC Creatinine (0.6-1.3) mg/dl Est Cr Clr Drug Dosing Not Reportable Est GFR ( Amer) 74.0 ml/min Est GFR (Non-Af Amer) 63.8 ml/min BUN/Creatinine Ratio 54.8 H (10-20) Glucose 122 H (70-99(Fasting)) mg/dl POC Glucose (other) (70-99) mg/dl Lactate 6.0 H* (0.4-2.0) mmol/L Calcium 10.3 (8.6-10.3) mg/dl POC Ioniz Calcium Brown (1.12-1.32) mmol/l Total Bilirubin 0.8 (0.2-1.0) mg/dl AST 74 H (13-39) U/L ALT 38 (7-52) U/L Alkaline Phosphatase 71 (34-104) U/L Total Creatine Kinase 1382 H (30-223) U/L Troponin I High Sens 16.3 (0-20) pg/ml Total Protein 8.0 (6.0-8.3) gm/dl Albumin 3.7 (3.4-5.0) gm/dl Globulin 4.3 H (2.5-4.0) gm/dl Albumin/Globulin Ratio 0.9 (0.9-2) Urine Color Urine Appearance (Clear) Urine pH (4.5-7.5) Ur Specific [place] (1.000-1.030) Urine Protein (Negative) Urine Glucose (UA) (Negative) Urine Ketones (Negative) Urine Blood (Negative) Urine Nitrite (Negative) Urine Bilirubin (Negative) Urine Urobilinogen (Negative) Ur Leukocyte Esterase (Negative) Urine WBC (Auto) (0-5) /hpf Urine RBC (Auto) (0-4) /hpf U Hyaline Cast (Auto) (0-5) /lpf U Epithel Cells (Auto) (0-5) /lpf Urine Bacteria (Auto) (Negative) Ethyl Alcohol mg/dL (<10.0) mg/dl SARS-CoV-2, RNA, NAAT (NEGATIVE) 07/20/22 07/20/22 07/20/22 Range/Units 20:31 20:41 20:41 WBC 15.46 H (4.8-10.8) K/ul RBC 5.23 (4.70-6.10) M/uL Hgb 16.3 (14.0-18.0) g/dl POC Hgb 17.3 (14.0-18.0) g/dl Hct 47.9 (42.0-52.0) % POC Hct 51 (42-52) % MCV 91.6 (80.0-100.0) fL MCH 31.2 (25.0-34.0) pg MCHC 34.0 (32.0-36.0) g/dL RDW Std Deviation 46.0 (36.4-46.3) fL RDW Coeff of Adolfo 13.6 (11.5-14.5) % Plt Count 304 (130-400) K/uL MPV 10.9 (9.4-12.4) fL Immature Gran % (Auto) 0.5 % Neut % (Auto) 87.2 % Lymph % (Auto) 6.0 % [place] % (Auto) 6.1 % Eos % (Auto) 0.0 % Baso % (Auto) 0.2 % Neut # (Auto) 13.49 H (1.40-6.50) K/uL Lymph # (Auto) 0.93 L (1.2-3.4) K/uL [place] # (Auto) 0.94 H (0.11-0.59) K/uL Eos # (Auto) 0.00 (0-0.50) K/uL Baso # (Auto) 0.03 (0-0.2) K/uL Immature Gran # (Auto) 0.07 (0.01-0.20) K/uL PT (9.0-12.0) Seconds INR (0.9-1.1) POC Sodium 144 (135-144) mmol/L Sodium (136-145) mmol/L POC Potassium 4.9 (3.3-5.0) mmol/L Potassium (3.5-5.1) mmol/L POC Chloride 106 (101-112) mmol/L Chloride (98-107) mmol/L Carbon Dioxide (21-32) mmol/L POC Total CO2 23 L (24-31) mmol/L Anion Gap (3-11) POC Anion Gap 20.0 (16-25) mmol/L POC BUN 50 H (7-18) mg/dl BUN (6-23) mg/dl Creatinine (0.6-1.4) mg/dl POC Creatinine 1.0 (0.6-1.3) mg/dl Est Cr Clr Drug Dosing Est GFR ( Amer) ml/min Est GFR (Non-Af Amer) ml/min BUN/Creatinine Ratio (10-20) Glucose (70-99(Fasting)) mg/dl POC Glucose (other) 126 H (70-99) mg/dl Lactate (0.4-2.0) mmol/L Calcium (8.6-10.3) mg/dl POC Ioniz Calcium Brown 1.25 (1.12-1.32) mmol/l Total Bilirubin (0.2-1.0) mg/dl AST (13-39) U/L ALT (7-52) U/L Alkaline Phosphatase (34-104) U/L Total Creatine Kinase (30-223) U/L Troponin I High Sens (0-20) pg/ml Total Protein (6.0-8.3) gm/dl Albumin (3.4-5.0) gm/dl Globulin (2.5-4.0) gm/dl Albumin/Globulin Ratio (0.9-2) Urine Color Urine Appearance (Clear) Urine pH (4.5-7.5) Ur Specific [place] (1.000-1.030) Urine Protein (Negative) Urine Glucose (UA) (Negative) Urine Ketones (Negative) Urine Blood (Negative) Urine Nitrite (Negative) Urine Bilirubin (Negative) Urine Urobilinogen (Negative) Ur Leukocyte Esterase (Negative) Urine WBC (Auto) (0-5) /hpf Urine RBC (Auto) (0-4) /hpf U Hyaline Cast (Auto) (0-5) /lpf U Epithel Cells (Auto) (0-5) /lpf Urine Bacteria (Auto) (Negative) Ethyl Alcohol mg/dL < 10.0 (<10.0) mg/dl SARS-CoV-2, RNA, NAAT (NEGATIVE) 07/20/22 07/20/22 07/20/22 Range/Units 20:45 22:18 22:48 WBC (4.8-10.8) K/ul RBC (4.70-6.10) M/uL Hgb (14.0-18.0) g/dl POC Hgb (14.0-18.0) g/dl Hct (42.0-52.0) % POC Hct (42-52) % MCV (80.0-100.0) fL MCH (25.0-34.0) pg MCHC (32.0-36.0) g/dL RDW Std Deviation (36.4-46.3) fL RDW Coeff of Adolfo (11.5-14.5) % Plt Count (130-400) K/uL MPV (9.4-12.4) fL Immature Gran % (Auto) % Neut % (Auto) % Lymph % (Auto) % [place] % (Auto) % Eos % (Auto) % Baso % (Auto) % Neut # (Auto) (1.40-6.50) K/uL Lymph # (Auto) (1.2-3.4) K/uL [place] # (Auto) (0.11-0.59) K/uL Eos # (Auto) (0-0.50) K/uL Baso # (Auto) (0-0.2) K/uL Immature Gran # (Auto) (0.01-0.20) K/uL PT (9.0-12.0) Seconds INR (0.9-1.1) POC Sodium (135-144) mmol/L Sodium (136-145) mmol/L POC Potassium (3.3-5.0) mmol/L Potassium (3.5-5.1) mmol/L POC Chloride (101-112) mmol/L Chloride (98-107) mmol/L Carbon Dioxide (21-32) mmol/L POC Total CO2 (24-31) mmol/L Anion Gap (3-11) POC Anion Gap (16-25) mmol/L POC BUN (7-18) mg/dl BUN (6-23) mg/dl Creatinine (0.6-1.4) mg/dl POC Creatinine (0.6-1.3) mg/dl Est Cr Clr Drug Dosing Est GFR ( Amer) ml/min Est GFR (Non-Af Amer) ml/min BUN/Creatinine Ratio (10-20) Glucose (70-99(Fasting)) mg/dl POC Glucose (other) (70-99) mg/dl Lactate 1.8 (0.4-2.0) mmol/L Calcium (8.6-10.3) mg/dl POC Ioniz Calcium Brown (1.12-1.32) mmol/l Total Bilirubin (0.2-1.0) mg/dl AST (13-39) U/L ALT (7-52) U/L Alkaline Phosphatase (34-104) U/L Total Creatine Kinase (30-223) U/L Troponin I High Sens (0-20) pg/ml Total Protein (6.0-8.3) gm/dl Albumin (3.4-5.0) gm/dl Globulin (2.5-4.0) gm/dl Albumin/Globulin Ratio (0.9-2) Urine Color [place] Urine Appearance Turbid A (Clear) Urine pH 5.0 (4.5-7.5) Ur Specific [place] 1.026 (1.000-1.030) Urine Protein 2+ H (Negative) Urine Glucose (UA) Negative (Negative) Urine Ketones Negative (Negative) Urine Blood 3+ H (Negative) Urine Nitrite Positive A (Negative) Urine Bilirubin 1+ H (Negative) Urine Urobilinogen Negative (Negative) Ur Leukocyte Esterase 1+ H (Negative) Urine WBC (Auto) 10-30 H (0-5) /hpf Urine RBC (Auto) >30 H (0-4) /hpf U Hyaline Cast (Auto) 1-5 (0-5) /lpf U Epithel Cells (Auto) 10-20 H (0-5) /lpf Urine Bacteria (Auto) Negative (Negative) Ethyl Alcohol mg/dL (<10.0) mg/dl SARS-CoV-2, RNA, NAAT NEGATIVE (NEGATIVE) Administered Medications Acetaminophen (Acetaminophen 325 Mg Tab) 650 mg PO Q4H PRN PRN Reason: Pain or Fever Stop: 08/20/22 02:12 Last Admin: 07/21/22 12:15 Dose: 650 mg Documented By: Admin: 07/21/22 02:33 Dose: 650 mg Documented By: ALEX Erythromycin (Erythromycin Op Oint 5 Mg/Gm 3.5 Gm Tube) 1 appln OP HS KAMILA Stop: 07/31/22 20:59 Last Admin: 07/21/22 22:01 Dose: 1 appln Documented By: JACEY Piperacillin Sod/Tazobactam (Sod 4.5 gm/ Dextrose) 120 mls @ 30 mls/hr IV Q8H KAMILA; Protocol Stop: 07/31/22 04:44 Last Infusion: 07/22/22 16:27 Dose: 0 mls/hr Documented By: SMAdin Admin: 07/22/22 12:35 Dose: 30 mls/hr Documented By: Infusion: 07/22/22 10:07 Dose: 0 mls/hr Documented By: Admin: 07/22/22 05:34 Dose: 30 mls/hr Documented By: Infusion: 07/22/22 00:08 Dose: 0 mls/hr Documented By: Admin: 07/21/22 19:54 Dose: 30 mls/hr Documented By: Infusion: 07/21/22 17:32 Dose: 0 mls/hr Documented By: Admin: 07/21/22 13:27 Dose: 30 mls/hr Documented By: Infusion: 07/21/22 09:47 Dose: 0 mls/hr Documented By: Admin: 07/21/22 05:42 Dose: 30 mls/hr Documented By: ALEX Lactated Ringer's (Lr) 1,000 mls @ 100 mls/hr IV .Q10H KAMILA Stop: 08/20/22 08:14 Last Admin: 07/22/22 15:09 Dose: 100 mls/hr Documented By: Infusion: 07/22/22 15:09 Dose: 100 mls/hr Documented By: SMAdin Admin: 07/22/22 05:55 Dose: 100 mls/hr Documented By: Infusion: 07/22/22 05:53 Dose: 100 mls/hr Documented By: Admin: 07/21/22 19:53 Dose: 100 mls/hr Documented By: Infusion: 07/21/22 18:57 Dose: 100 mls/hr Documented By: Admin: 07/21/22 08:57 Dose: 100 mls/hr Documented By: RACQUEL Pantoprazole Sodium 40 mg/ (Syringe) 10 mls @ 5 mls/min IV BID KAMILA Stop: 08/20/22 11:59 Last Admin: 07/22/22 08:07 Dose: 5 mls/min Documented By: Admin: 07/21/22 19:53 Dose: 5 mls/min Documented By: Admin: 07/21/22 12:17 Dose: 5 mls/min Documented By: NEWTON Thiamine HCl 500 mg/ Sodium (Chloride) 55 mls @ 210 mls/hr IV Q8H KAMILA Stop: 08/20/22 21:14 Last Infusion: 07/22/22 12:51 Dose: 0 mls/hr Documented By: Admin: 07/22/22 12:32 Dose: 210 mls/hr Documented By: Infusion: 07/22/22 05:51 Dose: 0 mls/hr Documented By: Admin: 07/22/22 05:34 Dose: 210 mls/hr Documented By: Infusion: 07/21/22 22:29 Dose: 0 mls/hr Documented By: Admin: 07/21/22 22:01 Dose: 210 mls/hr Documented By: JACEY Discontinued Medications Erythromycin (Erythromycin Op Oint 1 Gm Pkt) 1 appln OPB HS KAMILA Stop: 07/31/22 20:59 Last Admin: 07/21/22 21:10 Dose: Not Given Documented By: JACEY Sodium Chloride (Nss 1000ml) 1,000 mls @ 999 mls/hr IV .Q1H1M KAMILA Stop: 07/20/22 21:00 Last Infusion: 07/20/22 23:00 Dose: 0 mls/hr Documented By: Admin: 07/20/22 20:41 Dose: 999 mls/hr Documented By: MARIJA Piperacillin Sod/Tazobactam Sod (Zosyn) 4.5 gm in 120 mls @ 240 mls/hr IV NOW ONE Stop: 07/20/22 20:24 Last Infusion: 07/20/22 23:00 Dose: 0 mls/hr Documented By: Admin: 07/20/22 20:40 Dose: 240 mls/hr Documented By: MARIJA Sodium Chloride (Nss 1000ml) 1,000 mls @ 999 mls/hr IV .Q1H1M ONE Stop: 07/20/22 22:16 Last Infusion: 07/21/22 00:54 Dose: 0 mls/hr Documented By: Admin: 07/20/22 22:59 Dose: 999 mls/hr Documented By: MARIJA Sodium Chloride (Nss 1000ml) 1,000 mls @ 60 mls/hr IV .[id number] KAMILA Stop: 08/20/22 02:12 Last Infusion: 07/21/22 10:22 Dose: 0 mls/hr Documented By: Admin: 07/21/22 02:28 Dose: 60 mls/hr Documented By: ALEX Famotidine 20 mg/ Syringe 5 mls @ 2.5 mls/min IV Q12 KAMILA Stop: 08/20/22 08:59 Last Admin: 07/21/22 09:47 Dose: 2.5 mls/min Documented By: RACQUEL Lactated Ringer's (Lr) 500 mls @ 999 mls/hr IV .Q31M ONE Stop: 07/21/22 08:29 Last Infusion: 07/21/22 08:57 Dose: 0 mls/hr Documented By: Admin: 07/21/22 08:15 Dose: 999 mls/hr Documented By: NEWTON Ioversol (Optiray 320 100ml) 84 ml IV ONCE ONE Stop: 07/20/22 21:26 Last Admin: 07/20/22 21:25 Dose: 84 ml Documented By: EDK Imaging Data Radiologist's Impression: Abdomen/Pelvis CT 07/20/22 19:55 Exam(s): CT ABDOMEN + PELVIS With Contrast IV Amt: 84 ML OPTIRAY 350 EXAM: CT Abdomen and Pelvis With Intravenous Contrast CLINICAL HISTORY: Reason for exam: Trauma. TECHNIQUE: Axial computed tomography images of the abdomen and pelvis with intravenous contrast. CTDI is 50.48 mGy and DLP is 2292.97 mGy-cm. Automated exposure control was utilized for the study. A dose lowering technique was utilized adhering to the principles of ALARA. CONTRAST: Patient received 84 ML OPTIRAY 350 of IV contrast COMPARISON: 12/28/2021. FINDINGS: Lung bases: Lung bases are described in detail in the accompanying CT chest report. Heart: Borderline cardiomegaly with coronary artery calcifications. Pacemaker leads in place. ABDOMEN: Liver: Unremarkable. No mass. Gallbladder and bile ducts: Unremarkable. No calcified stones. No ductal dilation. Pancreas: Unremarkable. No mass. No ductal dilation. Spleen: Unremarkable. No splenomegaly. Adrenals: Unremarkable. No mass. Kidneys and ureters: Large stone in the left upper renal pole measuring 22 mm. Nonspecific fullness of the left pelvis with no hydronephrosis. Normal right kidney. Stomach and bowel: Incompletely distended stomach with areas of mild thickening of the wall, cannot exclude gastritis. Diverticulosis throughout the colon with no signs of diverticulitis. Increased fecal debris within the colon which may indicate mild constipation. PELVIS: Appendix: No findings to suggest acute appendicitis. Bladder: Unremarkable. No mass. Reproductive: Unremarkable as visualized. ABDOMEN and PELVIS: Intraperitoneal space: Unremarkable. No free air. No significant fluid collection. Bones/joints: Advanced degenerative disease of the spine with scoliosis, convexity to the right. Degenerative disease of bilateral hips. Diffuse osteopenia. Otherwise pelvic bones are unremarkable with no distinct fracture. No dislocation. Soft tissues: Small fat-containing umbilical hernia. Vasculature: Calcified atherosclerotic disease of aorta with mild aneurysmal dilatation in the mid distal portion up to 3.2 x 2.8 cm. Lymph nodes: Unremarkable. No enlarged lymph nodes. IMPRESSION: 1. No evidence of visceral intra-abdominal injury. 2. Large left-sided intrarenal stone measuring 2 mm. Remainder of abdominal viscera unremarkable. 3. Possible gastritis. Increased fecal debris within the colon, cannot exclude constipation. Diverticulosis with no signs of diverticulitis. No bowel obstruction. Electronically signed by: Cathy Loza MD 07/20/22 22:[address] 07/20/22 19:55 Exam(s): CT C SPINE EXAM: CT Cervical Spine Without Intravenous Contrast CLINICAL HISTORY: Reason for exam: Trauma. TECHNIQUE: Axial computed tomography images of the cervical spine without intravenous contrast. CTDI is 50.48 mGy and DLP is 2292.97 mGy-cm. Automated exposure control was utilized for the study. A dose lowering technique was utilized adhering to the principles of ALARA. COMPARISON: None. FINDINGS: Vertebrae: Diffuse osteopenia/osteoporosis. Advanced degenerative arthrosis at anterior C1-C2 articulation, otherwise normal odontoid process. Multilevel endplate spondylosis with narrowing of disc height, more severe at C3-C4 and C6-C7. Minimal anterolisthesis of C7 on T1 (2 mm), likely degenerative related. No acute fracture. Normal cervical lordosis. Discs/spinal canal/neural foramina: Multilevel bilateral apophyseal hypertrophy contributing to variable degrees of neuroforaminal encroachment more severe through the mid lower thoracic spine. Soft tissues: Incidental note is made of soft tissue swelling along the right anterior maxillary sinus and anterior right zygomatic arch. Vasculature: Calcified atherosclerotic disease throughout the bilateral carotid arteries. Pleural space: Emphysematous changes involving the lung apices with no pneumothorax. Calcified granuloma in the right lung apex measuring 7.5 mm. IMPRESSION: Diffuse osteoporosis along with advanced degenerative disease as described. No distinct fracture. Minimal anterolisthesis of C7 on T1, likely degenerative related, remainder of the cervical vertebral bodies are normally aligned. Electronically signed by: Cathy Loza MD 07/20/22 22:[address] 07/20/22 19:55 Exam(s): CT CHEST With Contrast IV Amt: 84 ML OPTIRAY 350 EXAM: CT Chest With Intravenous Contrast CLINICAL HISTORY: Reason for exam: Trauma. TECHNIQUE: Axial computed tomography images of the chest with intravenous contrast. Automated exposure control was utilized for the study. A dose lowering technique was utilized adhering to the principles of ALARA. CONTRAST: Patient received 84 ML OPTIRAY 350 of IV contrast COMPARISON: None. FINDINGS: Lungs: Bilateral lower lobe atelectasis with interstitial and cystic changes suggestive of early pulmonary fibrosis. Diffuse emphysematous changes, more severe involving the lung apices. Otherwise lung haynes are clear. Pleural space: Unremarkable. No pneumothorax. No significant effusion. Heart: See below. Bones/joints: Diffuse osteopenia. Multilevel disc degenerative disease of the thoracic spine with no acute fracture or subluxation. Soft tissues: Unremarkable. Vasculature: Atherosclerotic disease of aorta with no aneurysm or dissection. Lymph nodes: Unremarkable. No enlarged lymph nodes. Stomach and bowel: Increased fecal debris within the colon, cannot exclude constipation. Tubes, lines and devices: Left-sided pacemaker in place. Borderline cardiomegaly. IMPRESSION: 1. 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 Diffuse emphysematous changes, otherwise no acute cardiopulmonary process seen. 2. No pleural effusion or pneumothorax. Electronically signed by: Cathy Loza MD 07/20/22 22:[address] 07/20/22 19:55 Exam(s): CT FACIAL Without Contrast EXAM: CT Maxillofacial Without Intravenous Contrast CLINICAL HISTORY: Reason for exam: Trauma. TECHNIQUE: Axial computed tomography images of the face without intravenous contrast. CTDI is 17.35 mGy and DLP is 2292.97 mGy-cm. Automated exposure control was utilized for the study. A dose lowering technique was utilized adhering to the principles of ALARA. COMPARISON: None. FINDINGS: Bones/joints: Diffuse osteopenia. Degenerative disease of the anterior C1-C2 articulation. No acute fracture. Soft tissues: Soft tissue swelling is involving the anterior aspect of the right zygomatic arch, anterior wall of the right maxillary sinus , infraorbital region and anterior nasal spine. Orbits: Unremarkable. Sinuses: Minimal mucosal thickening involving the bilateral maxillary and sphenoid sinuses. Remainder of the paranasal sinuses are clear. No air-fluid levels. IMPRESSION: 1. Right-sided facial soft tissue swelling. No distinct facial bone fracture seen. 2. Minimal maxillary and sphenoid sinus disease as described. Electronically signed by: Cathy Loza MD 07/20/22 22:[address] 07/20/22 19:55 Exam(s): CT HEAD Without Contrast EXAM: CT Head Without Intravenous Contrast CLINICAL HISTORY: Reason for exam: Trauma. TECHNIQUE: Axial computed tomography images of the head/brain without intravenous contrast. CTDI is 50.48 mGy and DLP is 2292.5 mGy-cm. Automated exposure control was utilized for the study. A dose lowering technique was utilized adhering to the principles of ALARA. COMPARISON: 05/18/2022. FINDINGS: Brain: Moderate generalized brain atrophy. Decreased attenuation within the deep white matter suggestive of microangiopathic white matter disease. No hemorrhage. Ventricles: Unremarkable. No ventriculomegaly. Bones/joints: Unremarkable. No acute fracture. Soft tissues: Mild scalp swelling/hematoma overlying the left posterolateral scalp. Sinuses: Unremarkable as visualized. No acute sinusitis. Mastoid air cells: Unremarkable as visualized. No mastoid effusion. IMPRESSION: 1. Chronic changes as described. No acute intracranial hemorrhage or space-occupying lesion. 2. Left post lateral scalp hematoma with no distinct skull fracture. Electronically signed by: Cathy Loza MD 07/20/22 22:00 PM Hip/Pelvis X-Ray 07/20/22 19:55 SINGLE VIEW PELVIS; 2 VIEWS RIGHT HIP; 2 VIEWS LEFT HIP CLINICAL HISTORY: Fall. FINDINGS: An AP view of the pelvis with AP and frog leg views of the right and left hip are correlated with pelvic CT performed the same day 07/20/2022. The skeletal structures are osteopenic. There is no radiographic evidence of acute fracture involving the hips or bony pelvis. [id number] arthritic change and joint space narrowing is seen in the hips. There is no radiographic evidence of avascular necrosis of the femoral heads. Mild degenerative change is noted in the sacroiliac joints. Lumbosacral spondylosis and scoliosis is partially imaged. The overlying soft tissues are within normal limits. There are numerous phleboliths in the pelvis. No bowel obstruction is seen. IMPRESSION: No acute bony abnormality is identified. Electronically signed by: Adarsh Ca M.D. 07/21/2022 7:[address] 07/20/22 19:56 Exam(s): CT L SPINE With Contrast IV Amt: 84 ML OPTIRAY 350 EXAM: CT Lumbar Spine With Intravenous Contrast CLINICAL HISTORY: Reason for exam: Trauma. TECHNIQUE: Axial computed tomography images of the lumbar spine with intravenous contrast. CTDI is 50.48 mGy and DLP is 2292.97 mGy-cm. Automated exposure control was utilized for the study. A dose lowering technique was utilized adhering to the principles of ALARA. CONTRAST: Patient received 84 ML OPTIRAY 350 of IV contrast COMPARISON: None. FINDINGS: Vertebrae: Significant scoliosis of the lumbar spine with convexity to the right. Multilevel bilateral facet hypertrophy. No acute fracture. Discs/spinal canal/neural foramina: Possible spinal stenosis at L3-L4 with thecal sac suboptimally seen at this level. Multilevel degenerative disease throughout the lumbar spine. Severe right-sided neuroforaminal encroachment at L3-L4 and L4-5. Soft tissues: Small fat-containing umbilical hernia. Vasculature: Atherosclerotic disease of the aorta with mild aneurysmal dilatation distally measuring 3.2 cm in maximum dimension. Kidneys and ureters: There is a left-sided intrarenal stone measuring 16mm. IMPRESSION: 1. Advanced degenerative disease of the lumbar spine scoliosis convexity to the type. 2. Right-sided neural foramina fortunes at L3-L4-L5. Possible spinal stenosis at L3-L4. Electronically signed by: Cathy Loza MD 07/20/22 22:[address] 07/20/22 19:56 Exam(s): CT T SPINE IV Amt: 84 ML OPTIRAY 350 EXAM: CT Thoracic Spine With Intravenous Contrast CLINICAL HISTORY: Reason for exam: Trauma. TECHNIQUE: Axial computed tomography images of the thoracic spine with intravenous contrast. CTDI is 50.48 mGy and DLP is 2292.97 mGy-cm. Automated exposure control was utilized for the study. A dose lowering technique was utilized adhering to the principles of ALARA. CONTRAST: Patient received 84 ML OPTIRAY 350 of IV contrast COMPARISON: None. FINDINGS: Vertebrae: Slight increased kyphosis. Minimal scoliosis with convexity to the left. Multilevel endplate spondylosis with narrowing of disc height consistent with disc degenerative disease. Diffuse osteopenia. Normal alignment. No acute fracture. Discs/spinal canal/neural foramina: No significant central canal stenosis or neuroforaminal encroachment. Soft tissues: Unremarkable. Lungs: Lung haynes reveal bilateral lower lobe atelectasis with possible interstitial fibrosis. IMPRESSION: Diffuse osteopenia along with degenerative disease as described. No acute fracture or subluxation. Electronically signed by: Cathy Loza MD 07/20/22 22:06 PM Discharge Plan Visit Data Chief Complaint: Fall Stated Complaint: FALL, UNKNOWN DOWNTIME,CONFUSED ED Provider: Jabari Manuel Discharge Problem: Elevated lactic acid level, Fall, Acute dehydration, Hypothermia, Elevated CK Patient Disposition: Admitted As Inpatient Discharge Instructions Interventions: ED Discharge Assessment Last Done: 07/21/22 01:55
[2022-07-20] MEDS ORDERED: PIPERACILLIN/TAZOBACTAM 4.5 GM/120 ML BAG IV ONE (19:55)
[2022-07-20] MEDS ORDERED: SODIUM CHLORIDE 0.9% 1000ML 1,000 ML IV SCH (20:00)
[2022-07-20 20:43] LABS: iSTAT Hemoglobin 17.3 g/dl (14.0-18.0); iSTAT Ionized Calcium 1.25 mmol/l (1.12-1.32); iSTAT Potassium 4.9 mmol/L (3.3-5.0)
[2022-07-20 20:59] LABS: Alanine Aminotransferase 38 U/L (7-52); Albumin Globulin Ratio 0.9 (0.9-2); Albumin Level 3.7 gm/dl (3.4-5.0); Alkaline Phosphatase 71 U/L (34-104); Anion Gap 15 (3-11); Aspartate Aminotransferase 74 U/L (13-39); BUN Creatinine Ratio 54.8 (10-20); Bilirubin,Total 0.8 mg/dl (0.2-1.0); Blood Urea Nitrogen 57 mg/dl (6-23); Calcium 10.3 mg/dl (8.6-10.3); Carbon Dioxide 24 mmol/L (21-32); Chloride 104 mmol/L (98-107); Creatine Kinase 1382 U/L (30-223); Est GFR (Non-African American) 63.8 ml/min; Globulin 4.3 gm/dl (2.5-4.0); Glucose 122 mg/dl (70-99(Fasting)); Potassium 4.9 mmol/L (3.5-5.1); Sodium 143 mmol/L (136-145)
[2022-07-20 21:06] LABS: Troponin I High Sensitivity 16.3 pg/ml (0-20)
[2022-07-20 21:09] LABS: INR 1.2 (0.9-1.1); Prothrombin Time 13.2 Seconds (9.0-12.0)
[2022-07-20] MEDS ORDERED: SODIUM CHLORIDE 0.9% 1000ML 2,000 ML IV ONE (21:16)
[2022-07-20] MEDS ORDERED: SODIUM CHLORIDE 0.9% 1000ML 1,000 ML IV ONE (21:16)
[2022-07-20] MEDS ORDERED: OPTIRAY 320 100ml IV ONE (21:25)
[2022-07-20 21:37] LABS: Basophils # (auto) 0.03 K/uL (0-0.2); Basophils % (auto) 0.2 %; Hematocrit (blood only) 47.9 % (42.0-52.0); Hemoglobin 16.3 g/dl (14.0-18.0); Immature Granulocytes # (auto) 0.07 K/uL (0.01-0.20); Immature Granulocytes % (auto) 0.5 %; Lymphocytes # (auto) 0.93 K/uL (1.2-3.4); Mean Corpuscular Hemoglobin 31.2 pg (25.0-34.0); Mean Corpuscular Volume 91.6 fL (80.0-100.0); Mean Platelet Volume 10.9 fL (9.4-12.4); Monocytes # (auto) 0.94 K/uL (0.11-0.59); Monocytes % (auto) 6.1 %; Neutrophils # (auto) 13.49 K/uL (1.40-6.50); Neutrophils % (auto) 87.2 %; Platelet Count 304 K/uL (130-400); RDW Coefficient of Variation 13.6 % (11.5-14.5); Red Blood Count 5.23 M/uL (4.70-6.10); White Blood Count 15.46 K/ul (4.8-10.8)
--- NOTE | 2022-07-20 22:01 | CT Scan Report ---
Exam(s): CT HEAD Without Contrast EXAM: CT Head Without Intravenous Contrast CLINICAL HISTORY: Reason for exam: Trauma. TECHNIQUE: Axial computed tomography images of the head/brain without intravenous contrast. CTDI is 50.48 mGy and DLP is 2292.5 mGy-cm. Automated exposure control was utilized for the study. A dose lowering technique was utilized adhering to the principles of ALARA. COMPARISON: 05/18/2022. FINDINGS: Brain: Moderate generalized brain atrophy. Decreased attenuation within the deep white matter suggestive of microangiopathic white matter disease. No hemorrhage. Ventricles: Unremarkable. No ventriculomegaly. Bones/joints: Unremarkable. No acute fracture. Soft tissues: Mild scalp swelling/hematoma overlying the left posterolateral scalp. Sinuses: Unremarkable as visualized. No acute sinusitis. Mastoid air cells: Unremarkable as visualized. No mastoid effusion. IMPRESSION: 1. Chronic changes as described. No acute intracranial hemorrhage or space-occupying lesion. 2. Left post lateral scalp hematoma with no distinct skull fracture. Electronically signed by: Cathy Loza MD 07/20/22 22:00 PM
--- NOTE | 2022-07-20 22:02 | CT Scan Report ---
Exam(s): CT C SPINE EXAM: CT Cervical Spine Without Intravenous Contrast CLINICAL HISTORY: Reason for exam: Trauma. TECHNIQUE: Axial computed tomography images of the cervical spine without intravenous contrast. CTDI is 50.48 mGy and DLP is 2292.97 mGy-cm. Automated exposure control was utilized for the study. A dose lowering technique was utilized adhering to the principles of ALARA. COMPARISON: None. FINDINGS: Vertebrae: Diffuse osteopenia/osteoporosis. Advanced degenerative arthrosis at anterior C1-C2 articulation, otherwise normal odontoid process. Multilevel endplate spondylosis with narrowing of disc height, more severe at C3-C4 and C6-C7. Minimal anterolisthesis of C7 on T1 (2 mm), likely degenerative related. No acute fracture. Normal cervical lordosis. Discs/spinal canal/neural foramina: Multilevel bilateral apophyseal hypertrophy contributing to variable degrees of neuroforaminal encroachment more severe through the mid lower thoracic spine. Soft tissues: Incidental note is made of soft tissue swelling along the right anterior maxillary sinus and anterior right zygomatic arch. Vasculature: Calcified atherosclerotic disease throughout the bilateral carotid arteries. Pleural space: Emphysematous changes involving the lung apices with no pneumothorax. Calcified granuloma in the right lung apex measuring 7.5 mm. IMPRESSION: Diffuse osteoporosis along with advanced degenerative disease as described. No distinct fracture. Minimal anterolisthesis of C7 on T1, likely degenerative related, remainder of the cervical vertebral bodies are normally aligned. Electronically signed by: Cathy Loza MD 07/20/22 22:01 PM
--- NOTE | 2022-07-20 22:05 | CT Scan Report ---
Exam(s): CT FACIAL Without Contrast EXAM: CT Maxillofacial Without Intravenous Contrast CLINICAL HISTORY: Reason for exam: Trauma. TECHNIQUE: Axial computed tomography images of the face without intravenous contrast. CTDI is 17.35 mGy and DLP is 2292.97 mGy-cm. Automated exposure control was utilized for the study. A dose lowering technique was utilized adhering to the principles of ALARA. COMPARISON: None. FINDINGS: Bones/joints: Diffuse osteopenia. Degenerative disease of the anterior C1-C2 articulation. No acute fracture. Soft tissues: Soft tissue swelling is involving the anterior aspect of the right zygomatic arch, anterior wall of the right maxillary sinus , infraorbital region and anterior nasal spine. Orbits: Unremarkable. Sinuses: Minimal mucosal thickening involving the bilateral maxillary and sphenoid sinuses. Remainder of the paranasal sinuses are clear. No air-fluid levels. IMPRESSION: 1. Right-sided facial soft tissue swelling. No distinct facial bone fracture seen. 2. Minimal maxillary and sphenoid sinus disease as described. Electronically signed by: Cathy Loza MD 07/20/22 22:04 PM
--- NOTE | 2022-07-20 22:07 | CT Scan Report ---
Exam(s): CT T SPINE IV Amt: 84 ML OPTIRAY 350 EXAM: CT Thoracic Spine With Intravenous Contrast CLINICAL HISTORY: Reason for exam: Trauma. TECHNIQUE: Axial computed tomography images of the thoracic spine with intravenous contrast. CTDI is 50.48 mGy and DLP is 2292.97 mGy-cm. Automated exposure control was utilized for the study. A dose lowering technique was utilized adhering to the principles of ALARA. CONTRAST: Patient received 84 ML OPTIRAY 350 of IV contrast COMPARISON: None. FINDINGS: Vertebrae: Slight increased kyphosis. Minimal scoliosis with convexity to the left. Multilevel endplate spondylosis with narrowing of disc height consistent with disc degenerative disease. Diffuse osteopenia. Normal alignment. No acute fracture. Discs/spinal canal/neural foramina: No significant central canal stenosis or neuroforaminal encroachment. Soft tissues: Unremarkable. Lungs: Lung haynes reveal bilateral lower lobe atelectasis with possible interstitial fibrosis. IMPRESSION: Diffuse osteopenia along with degenerative disease as described. No acute fracture or subluxation. Electronically signed by: Cathy Loza MD 07/20/22 22:06 PM
--- NOTE | 2022-07-20 22:13 | CT Scan Report ---
Exam(s): CT L SPINE With Contrast IV Amt: 84 ML OPTIRAY 350 EXAM: CT Lumbar Spine With Intravenous Contrast CLINICAL HISTORY: Reason for exam: Trauma. TECHNIQUE: Axial computed tomography images of the lumbar spine with intravenous contrast. CTDI is 50.48 mGy and DLP is 2292.97 mGy-cm. Automated exposure control was utilized for the study. A dose lowering technique was utilized adhering to the principles of ALARA. CONTRAST: Patient received 84 ML OPTIRAY 350 of IV contrast COMPARISON: None. FINDINGS: Vertebrae: Significant scoliosis of the lumbar spine with convexity to the right. Multilevel bilateral facet hypertrophy. No acute fracture. Discs/spinal canal/neural foramina: Possible spinal stenosis at L3-L4 with thecal sac suboptimally seen at this level. Multilevel degenerative disease throughout the lumbar spine. Severe right-sided neuroforaminal encroachment at L3-L4 and L4-5. Soft tissues: Small fat-containing umbilical hernia. Vasculature: Atherosclerotic disease of the aorta with mild aneurysmal dilatation distally measuring 3.2 cm in maximum dimension. Kidneys and ureters: There is a left-sided intrarenal stone measuring 16mm. IMPRESSION: 1. Advanced degenerative disease of the lumbar spine scoliosis convexity to the type. 2. Right-sided neural foramina fortunes at L3-L4-L5. Possible spinal stenosis at L3-L4. Electronically signed by: Cathy Loza MD 07/20/22 22:13 PM
--- NOTE | 2022-07-20 22:18 | CT Scan Report ---
Exam(s): CT CHEST With Contrast IV Amt: 84 ML OPTIRAY 350 EXAM: CT Chest With Intravenous Contrast CLINICAL HISTORY: Reason for exam: Trauma. TECHNIQUE: Axial computed tomography images of the chest with intravenous contrast. Automated exposure control was utilized for the study. A dose lowering technique was utilized adhering to the principles of ALARA. CONTRAST: Patient received 84 ML OPTIRAY 350 of IV contrast COMPARISON: None. FINDINGS: Lungs: Bilateral lower lobe atelectasis with interstitial and cystic changes suggestive of early pulmonary fibrosis. Diffuse emphysematous changes, more severe involving the lung apices. Otherwise lung haynes are clear. Pleural space: Unremarkable. No pneumothorax. No significant effusion. Heart: See below. Bones/joints: Diffuse osteopenia. Multilevel disc degenerative disease of the thoracic spine with no acute fracture or subluxation. Soft tissues: Unremarkable. Vasculature: Atherosclerotic disease of aorta with no aneurysm or dissection. Lymph nodes: Unremarkable. No enlarged lymph nodes. Stomach and bowel: Increased fecal debris within the colon, cannot exclude constipation. Tubes, lines and devices: Left-sided pacemaker in place. Borderline cardiomegaly. IMPRESSION: 1. 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 Diffuse emphysematous changes, otherwise no acute cardiopulmonary process seen. 2. No pleural effusion or pneumothorax. Electronically signed by: Cathy Loza MD 07/20/22 22:17 PM
--- NOTE | 2022-07-20 22:21 | CT Scan Report ---
Exam(s): CT ABDOMEN + PELVIS With Contrast IV Amt: 84 ML OPTIRAY 350 EXAM: CT Abdomen and Pelvis With Intravenous Contrast CLINICAL HISTORY: Reason for exam: Trauma. TECHNIQUE: Axial computed tomography images of the abdomen and pelvis with intravenous contrast. CTDI is 50.48 mGy and DLP is 2292.97 mGy-cm. Automated exposure control was utilized for the study. A dose lowering technique was utilized adhering to the principles of ALARA. CONTRAST: Patient received 84 ML OPTIRAY 350 of IV contrast COMPARISON: 12/28/2021. FINDINGS: Lung bases: Lung bases are described in detail in the accompanying CT chest report. Heart: Borderline cardiomegaly with coronary artery calcifications. Pacemaker leads in place. ABDOMEN: Liver: Unremarkable. No mass. Gallbladder and bile ducts: Unremarkable. No calcified stones. No ductal dilation. Pancreas: Unremarkable. No mass. No ductal dilation. Spleen: Unremarkable. No splenomegaly. Adrenals: Unremarkable. No mass. Kidneys and ureters: Large stone in the left upper renal pole measuring 22 mm. Nonspecific fullness of the left pelvis with no hydronephrosis. Normal right kidney. Stomach and bowel: Incompletely distended stomach with areas of mild thickening of the wall, cannot exclude gastritis. Diverticulosis throughout the colon with no signs of diverticulitis. Increased fecal debris within the colon which may indicate mild constipation. PELVIS: Appendix: No findings to suggest acute appendicitis. Bladder: Unremarkable. No mass. Reproductive: Unremarkable as visualized. ABDOMEN and PELVIS: Intraperitoneal space: Unremarkable. No free air. No significant fluid collection. Bones/joints: Advanced degenerative disease of the spine with scoliosis, convexity to the right. Degenerative disease of bilateral hips. Diffuse osteopenia. Otherwise pelvic bones are unremarkable with no distinct fracture. No dislocation. Soft tissues: Small fat-containing umbilical hernia. Vasculature: Calcified atherosclerotic disease of aorta with mild aneurysmal dilatation in the mid distal portion up to 3.2 x 2.8 cm. Lymph nodes: Unremarkable. No enlarged lymph nodes. IMPRESSION: 1. No evidence of visceral intra-abdominal injury. 2. Large left-sided intrarenal stone measuring 2 mm. Remainder of abdominal viscera unremarkable. 3. Possible gastritis. Increased fecal debris within the colon, cannot exclude constipation. Diverticulosis with no signs of diverticulitis. No bowel obstruction. Electronically signed by: Cathy Loza MD 07/20/22 22:20 PM
[2022-07-20 22:48] LABS: Appearance Urine Turbid (Clear); Bacteria Urine Automated Negative (Negative); Blood Urine 3+ (Negative); Color Urine Orange; Glucose Urine UA Negative (Negative); Ketones Urine Negative (Negative); Leukocyte Esterase Urine 1+ (Negative); Nitrite Urine Positive (Negative); Protein Urine 2+ (Negative); RBC Urine Automated >30 /hpf (0-4); Specific Gravity Urine 1.026 (1.000-1.030); Urobilinogen Urine Negative (Negative)
[2022-07-20 22:52] LABS: Bilirubin Urine 1+ (Negative)
--- NOTE | 2022-07-21 | History & Physical Report ---
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 Patient does have a history of BPH with LUTS, but history is unreliable for previous symptomatology Urinalysis does look as a possible source of infection. Continue Zosyn 4.5 g IV every 8 hours Patient did have padilla CT scan as noted above Atrial fibrillation/hypertension/cardiomyopathy- Hold carvedilol, lisinopril and apixaban for now Can decide in the a.m. whether anticoagulation should be resumed with IV heparin or apixaban Possible early rhabdomyolysis- CK13 82 Ordered CBC with differential, chemistry profile, magnesium and CK levels for the a.m. Lactic acidosis- Lactic acid level 6 on admission. Follow per protocol Source may be UTI/prostatitis. Place on Zosyn IV as noted above History of Present Illness Chief Complaint: HPI and review of systems are limited by patient's underlying dementia and current medical state. He reportedly was found in a laundry room in a common area of his apartment building on the floor for was thought to be at least 6 hours. Primary Care Provider: Truman Valle MD The patient is a 87-year-old male with a past medical history including folate deficiency, right lumbar radiculopathy, BPH with LUTS, impaired fasting glucose, hypertension, third-degree heart block, atrial fibrillation, cardiomyopathy, status post pacemaker and long-term anticoagulant use. Patient was found down in his apartment complex washroom and thought to be generally 6 hours. Abnormal laboratories: Lactic acid 6, AST 74, CK13 82, WBC 15.46, BUN 57, creatinine 1.04 and glucose 122. COVID-19 testing negative Imaging studies: CT head negative, CT cervical spine negative, CT thoracic spine and lumbar spine showed mild osteopenia and degenerative disc disease. CT head shows a left posterior scalp hematoma. CT face negative. CT chest shows chronic bilateral interstitial fibrosis changes. CT abdomen/pelvis questions possible gastritis, possible constipation Allergies Allergy/AdvReac Type Severity Reaction Status Date / Time ciprofloxacin Allergy Intermediate Rash Verified 07/20/22 23:37 Quinolones Allergy Intermediate CIPRO-RASH Verified 07/20/22 23:37 Home Medications Medication Instructions Recorded Confirmed Type clobetasol-emollient 0.05 % 1 appln topical BID PRN flare up 11/15/19 07/20/22 History topical cream #1 g cholecalciferol (vitamin D3) 50 50 mcg PO DAILY #30 caps 05/29/20 07/20/22 Rx mcg (2,000 unit) capsule carvedilol 25 mg tablet 25 mg PO BID #180 tabs 07/05/21 07/20/22 Rx cyanocobalamin (vitamin B-12) 1,000 mcg PO DAILY #30 tabs 01/03/22 07/20/22 Rx 1,000 mcg tablet lisinopril 5 mg tablet 5 mg PO DAILY #100 tabs 02/10/22 07/20/22 Rx apixaban 5 mg tablet (Eliquis) 5 mg PO BID #180 tabs 02/11/22 07/20/22 Rx folic acid 1 mg tablet 1 mg PO DAILY #90 tabs 02/19/22 07/20/22 Rx Past Med/Surg History Medical History (Updated 07/21/22 @ 04:28 by Arnulfo Ward MD) Atrial fibrillation Cardiomyopathy Hypertension Impaired fasting glucose Third degree heart block Surgical History History of colonoscopy History of laparoscopy history of pyelotomy with lithotomy History of pacemaker Family History Father Old age Mother Old age Grandfather (Maternal) Myocardial infarction Other No significant family history Denies family history of Ovarian cancer Prostate cancer Breast cancer Lung cancer Colorectal cancer Stroke Social History Smoking Status: Never smoker Second Hand Exposure: No; Do You Dip or Chew Tobacco: No; Hx Alcohol Use: Yes Alcohol type: beer Alcohol Intake Frequency: 4 or More x per/Week Hx Substance Use: No Preferred Language: Maltese Communication Ability: Impaired Visual Impairment: Limited Hearing Ability: Hard of Hearing Compensation Manager Required: No Beliefs That Will Affect Care: None marital status: Single Current Living Situation: Alone current occupational status: retired How many Children do You have: 0 Other Information That Helps Us Care for You: No Feels Safe at Home: Yes Safety Concerns: Feels Safe At This Time Childhood Exposure to Second-Hand Smoke: Yes caffeine: Yes Dental Care, Regularly: No Physical Activity Frequency: 1-2 Times per Week Seatbelt Use: always Sunscreen Use: No Assistive Devices: Glasses Review of Systems Constitutional: As noted above as noted above, HPI and review of systems are significantly limited due to patient's underlying dementia and current medical state Physical Exam Physical Exam: The patient is awake, alert and oriented 3, well developed and well nourished, left posterior scalp hematoma, lying in bed and in no acute distress HEENT--PERRL, EOMI, mucous membranes and oropharynx dry. Neck--supple. No JVD. No bruits. Thyroid normal, trachea midline, no adenopathy. Heart--normal S1 and S2. No murmurs, rubs or gallops. Lungs--clear bilaterally, no respiratory distress, no accessory muscle use. Abdomen--normal bowel sounds and soft. Nontender. Nondistended, no hernias or masses, no organomegaly. Extremities--no cyanosis or clubbing. No edema. Dermatologic--normal except for scalp as above Neurologic--cranial nerves II through XII grossly intact. Rheumatologic--limited exam Psychiatric--dementia, confused and disoriented Results & Data Results & Data Vital Signs (Past 12 Hours) Vital Signs Temp Pulse Resp BP Pulse Ox O2 Del Method 07/20/22 23:30 34.2 C L 132 H 22 115/64 90 07/20/22 23:01 88 20 100/58 L 97 07/20/22 22:31 101 H 18 114/64 96 07/20/22 21:36 80 22 113/64 97 07/20/22 21:00 64 18 109/50 L 96 07/20/22 20:36 97 Room Air 07/20/22 19:51 68 07/20/22 19:46 31 C L 64 20 96 Room Air Laboratory Results Laboratory Results WBC 15.46 K/ul (4.8-10.8) H 07/20/22 20: RBC 5.23 M/uL (4.70-6.10) 07/20/22 20:41 Hgb 16.3 g/dl (14.0-18.0) 07/20/22 20: POC Hgb 17.3 g/dl (14.0-18.0) 07/20/22 20: Hct 47.9 % (42.0-52.0) 07/20/22 20: POC Hct 51 % (42-52) 07/20/22 20: MCV 91.6 fL (80.0-100.0) 07/20/22 20: MCH 31.2 pg (25.0-34.0) 07/20/22 20: MCHC 34.0 g/dL (32.0-36.0) 07/20/22 20: RDW Std Deviation 46.0 fL (36.4-46.3) 07/20/22 20: RDW Coeff of Adolfo 13.6 % (11.5-14.5) 07/20/22 20: Plt Count 304 K/uL (130-400) 07/20/22 20: MPV 10.9 fL (9.4-12.4) 07/20/22 20:41 Immature Gran % (Auto) 0.5 % 07/20/22 20: Neut % (Auto) 87.2 % 07/20/22 20: Lymph % (Auto) 6.0 % 07/20/22 20: [place] % (Auto) 6.1 % 07/20/22 20:41 Eos % (Auto) 0.0 % 07/20/22 20:41 Baso % (Auto) 0.2 % 07/20/22 20: Neut # (Auto) 13.49 K/uL (1.40-6.50) H 07/20/22 20:41 Lymph # (Auto) 0.93 K/uL (1.2-3.4) L 07/20/22 20:41 [place] # (Auto) 0.94 K/uL (0.11-0.59) H 07/20/22 20:41 Eos # (Auto) 0.00 K/uL (0-0.50) 07/20/22 20:41 Baso # (Auto) 0.03 K/uL (0-0.2) 07/20/22 20:41 Immature Gran # (Auto) 0.07 K/uL (0.01-0.20) 07/20/22 20:41 PT 13.2 Seconds (9.0-12.0) H 07/20/22 20:20 INR 1.2 (0.9-1.1) H 07/20/22 20:20 POC Sodium 144 mmol/L (135-144) 07/20/22 20:31 Sodium 143 mmol/L (136-145) 07/20/22 20:20 POC Potassium 4.9 mmol/L (3.3-5.0) 07/20/22 20:31 Potassium 4.9 mmol/L (3.5-5.1) 07/20/22 20:20 POC Chloride 106 mmol/L (101-112) 07/20/22 20:31 Chloride 104 mmol/L (98-107) 07/20/22 20:20 Carbon Dioxide 24 mmol/L (21-32) 07/20/22 20:20 POC Total CO2 23 mmol/L (24-31) L 07/20/22 20:31 Anion Gap 15 (3-11) H 07/20/22 20:20 POC Anion Gap 20.0 mmol/L (16-25) 07/20/22 20:31 POC BUN 50 mg/dl (7-18) H 07/20/22 20:31 BUN 57 mg/dl (6-23) H 07/20/22 20:20 Creatinine 1.04 mg/dl (0.6-1.4) 07/20/22 20:20 POC Creatinine 1.0 mg/dl (0.6-1.3) 07/20/22 20:31 Est Cr Clr Drug Dosing Not Reportable 07/20/22 20:20 Est GFR ( Amer) 74.0 ml/min 07/20/22 20:20 Est GFR (Non-Af Amer) 63.8 ml/min 07/20/22 20:20 BUN/Creatinine Ratio 54.8 (10-20) H 07/20/22 20:20 Glucose 122 mg/dl (70-99(Fasting)) H 07/20/22 20:20 POC Glucose (other) 126 mg/dl (70-99) H 07/20/22 20:31 Lactate 1.8 mmol/L (0.4-2.0) 07/20/22 22:48 Calcium 10.3 mg/dl (8.6-10.3) 07/20/22 20:20 POC Ioniz Calcium Brown 1.25 mmol/l (1.12-1.32) 07/20/22 20:31 Total Bilirubin 0.8 mg/dl (0.2-1.0) 07/20/22 20:20 AST 74 U/L (13-39) H 07/20/22 20:20 ALT 38 U/L (7-52) 07/20/22 20:20 Alkaline Phosphatase 71 U/L (34-104) 07/20/22 20:20 Total Creatine Kinase 1382 U/L (30-223) H 07/20/22 20:20 Troponin I High Sens 16.3 pg/ml (0-20) 07/20/22 20:20 Total Protein 8.0 gm/dl (6.0-8.3) 07/20/22 20:20 Albumin 3.7 gm/dl (3.4-5.0) 07/20/22 20:20 Globulin 4.3 gm/dl (2.5-4.0) H 07/20/22 20:20 Albumin/Globulin Ratio 0.9 (0.9-2) 07/20/22 20:20 Urine Color [place] 07/20/22 22:18 Urine Appearance Turbid (Clear) A 07/20/22 22:18 Urine pH 5.0 (4.5-7.5) 07/20/22 22:18 Ur Specific [place] 1.026 (1.000-1.030) 07/20/22 22:18 Urine Protein 2+ (Negative) H 07/20/22 22:18 Urine Glucose (UA) Negative (Negative) 07/20/22 22:18 Urine Ketones Negative (Negative) 07/20/22 22:18 Urine Blood 3+ (Negative) H 07/20/22 22:18 Urine Nitrite Positive (Negative) A 07/20/22 22:18 Urine Bilirubin 1+ (Negative) H 04/30/23 22:18 Urine Urobilinogen Negative (Negative) 07/20/22 22:18 Ur Leukocyte Esterase 1+ (Negative) H 07/20/22 22:18 Urine WBC (Auto) 10-30 /hpf (0-5) H 07/20/22 22:18 Urine RBC (Auto) >30 /hpf (0-4) H 07/20/22 22:18 U Hyaline Cast (Auto) 1-5 /lpf (0-5) 07/20/22 22:18 U Epithel Cells (Auto) 10-20 /lpf (0-5) H 07/20/22 22:18 Urine Bacteria (Auto) Negative (Negative) 07/20/22 22:18 Ethyl Alcohol mg/dL < 10.0 mg/dl (<10.0) 07/20/22 20:41 SARS-CoV-2, RNA, NAAT NEGATIVE (NEGATIVE) 07/20/22 20:45 Impressions Abdomen/Pelvis CT 07/20/22 19:55 Exam(s): CT ABDOMEN + PELVIS With Contrast IV Amt: 84 ML OPTIRAY 350 EXAM: CT Abdomen and Pelvis With Intravenous Contrast CLINICAL HISTORY: Reason for exam: Trauma. TECHNIQUE: Axial computed tomography images of the abdomen and pelvis with intravenous contrast. CTDI is 50.48 mGy and DLP is 2292.97 mGy-cm. Automated exposure control was utilized for the study. A dose lowering technique was utilized adhering to the principles of ALARA. CONTRAST: Patient received 84 ML OPTIRAY 350 of IV contrast COMPARISON: 12/28/2021. FINDINGS: Lung bases: Lung bases are described in detail in the accompanying CT chest report. Heart: Borderline cardiomegaly with coronary artery calcifications. Pacemaker leads in place. ABDOMEN: Liver: Unremarkable. No mass. Gallbladder and bile ducts: Unremarkable. No calcified stones. No ductal dilation. Pancreas: Unremarkable. No mass. No ductal dilation. Spleen: Unremarkable. No splenomegaly. Adrenals: Unremarkable. No mass. Kidneys and ureters: Large stone in the left upper renal pole measuring 22 mm. Nonspecific fullness of the left pelvis with no hydronephrosis. Normal right kidney. Stomach and bowel: Incompletely distended stomach with areas of mild thickening of the wall, cannot exclude gastritis. Diverticulosis throughout the colon with no signs of diverticulitis. Increased fecal debris within the colon which may indicate mild constipation. PELVIS: Appendix: No findings to suggest acute appendicitis. Bladder: Unremarkable. No mass. Reproductive: Unremarkable as visualized. ABDOMEN and PELVIS: Intraperitoneal space: Unremarkable. No free air. No significant fluid collection. Bones/joints: Advanced degenerative disease of the spine with scoliosis, convexity to the right. Degenerative disease of bilateral hips. Diffuse osteopenia. Otherwise pelvic bones are unremarkable with no distinct fracture. No dislocation. Soft tissues: Small fat-containing umbilical hernia. Vasculature: Calcified atherosclerotic disease of aorta with mild aneurysmal dilatation in the mid distal portion up to 3.2 x 2.8 cm. Lymph nodes: Unremarkable. No enlarged lymph nodes. IMPRESSION: 1. No evidence of visceral intra-abdominal injury. 2. Large left-sided intrarenal stone measuring 2 mm. Remainder of abdominal viscera unremarkable. 3. Possible gastritis. Increased fecal debris within the colon, cannot exclude constipation. Diverticulosis with no signs of diverticulitis. No bowel obstruction. Electronically signed by: Cathy Loza MD 07/20/22 22:[address] 07/20/22 19:55 Exam(s): CT C SPINE EXAM: CT Cervical Spine Without Intravenous Contrast CLINICAL HISTORY: Reason for exam: Trauma. TECHNIQUE: Axial computed tomography images of the cervical spine without intravenous contrast. CTDI is 50.48 mGy and DLP is 2292.97 mGy-cm. Automated exposure control was utilized for the study. A dose lowering technique was utilized adhering to the principles of ALARA. COMPARISON: None. FINDINGS: Vertebrae: Diffuse osteopenia/osteoporosis. Advanced degenerative arthrosis at anterior C1-C2 articulation, otherwise normal odontoid process. Multilevel endplate spondylosis with narrowing of disc height, more severe at C3-C4 and C6-C7. Minimal anterolisthesis of C7 on T1 (2 mm), likely degenerative related. No acute fracture. Normal cervical lordosis. Discs/spinal canal/neural foramina: Multilevel bilateral apophyseal hypertrophy contributing to variable degrees of neuroforaminal encroachment more severe through the mid lower thoracic spine. Soft tissues: Incidental note is made of soft tissue swelling along the right anterior maxillary sinus and anterior right zygomatic arch. Vasculature: Calcified atherosclerotic disease throughout the bilateral carotid arteries. Pleural space: Emphysematous changes involving the lung apices with no pneumothorax. Calcified granuloma in the right lung apex measuring 7.5 mm. IMPRESSION: Diffuse osteoporosis along with advanced degenerative disease as described. No distinct fracture. Minimal anterolisthesis of C7 on T1, likely degenerative related, remainder of the cervical vertebral bodies are normally aligned. Electronically signed by: Cathy Loza MD 07/20/22 22:[address] 07/20/22 19:55 Exam(s): CT CHEST With Contrast IV Amt: 84 ML OPTIRAY 350 EXAM: CT Chest With Intravenous Contrast CLINICAL HISTORY: Reason for exam: Trauma. TECHNIQUE: Axial computed tomography images of the chest with intravenous contrast. Automated exposure control was utilized for the study. A dose lowering technique was utilized adhering to the principles of ALARA. CONTRAST: Patient received 84 ML OPTIRAY 350 of IV contrast COMPARISON: None. FINDINGS: Lungs: Bilateral lower lobe atelectasis with interstitial and cystic changes suggestive of early pulmonary fibrosis. Diffuse emphysematous changes, more severe involving the lung apices. Otherwise lung haynes are clear. Pleural space: Unremarkable. No pneumothorax. No significant effusion. Heart: See below. Bones/joints: Diffuse osteopenia. Multilevel disc degenerative disease of the thoracic spine with no acute fracture or subluxation. Soft tissues: Unremarkable. Vasculature: Atherosclerotic disease of aorta with no aneurysm or dissection. Lymph nodes: Unremarkable. No enlarged lymph nodes. Stomach and bowel: Increased fecal debris within the colon, cannot exclude constipation. Tubes, lines and devices: Left-sided pacemaker in place. Borderline cardiomegaly. IMPRESSION: 1. 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 Diffuse emphysematous changes, otherwise no acute cardiopulmonary process seen. 2. No pleural effusion or pneumothorax. Electronically signed by: Cathy Loza MD 07/20/22 22:[address] 07/20/22 19:55 Exam(s): CT FACIAL Without Contrast EXAM: CT Maxillofacial Without Intravenous Contrast CLINICAL HISTORY: Reason for exam: Trauma. TECHNIQUE: Axial computed tomography images of the face without intravenous contrast. CTDI is 17.35 mGy and DLP is 2292.97 mGy-cm. Automated exposure control was utilized for the study. A dose lowering technique was utilized adhering to the principles of ALARA. COMPARISON: None. FINDINGS: Bones/joints: Diffuse osteopenia. Degenerative disease of the anterior C1-C2 articulation. No acute fracture. Soft tissues: Soft tissue swelling is involving the anterior aspect of the right zygomatic arch, anterior wall of the right maxillary sinus , infraorbital region and anterior nasal spine. Orbits: Unremarkable. Sinuses: Minimal mucosal thickening involving the bilateral maxillary and sphenoid sinuses. Remainder of the paranasal sinuses are clear. No air-fluid levels. IMPRESSION: 1. Right-sided facial soft tissue swelling. No distinct facial bone fracture seen. 2. Minimal maxillary and sphenoid sinus disease as described. Electronically signed by: Cathy Loza MD 07/20/22 22:[address] 07/20/22 19:55 Exam(s): CT HEAD Without Contrast EXAM: CT Head Without Intravenous Contrast CLINICAL HISTORY: Reason for exam: Trauma. TECHNIQUE: Axial computed tomography images of the head/brain without intravenous contrast. CTDI is 50.48 mGy and DLP is 2292.5 mGy-cm. Automated exposure control was utilized for the study. A dose lowering technique was utilized adhering to the principles of ALARA. COMPARISON: 05/18/2022. FINDINGS: Brain: Moderate generalized brain atrophy. Decreased attenuation within the deep white matter suggestive of microangiopathic white matter disease. No hemorrhage. Ventricles: Unremarkable. No ventriculomegaly. Bones/joints: Unremarkable. No acute fracture. Soft tissues: Mild scalp swelling/hematoma overlying the left posterolateral scalp. Sinuses: Unremarkable as visualized. No acute sinusitis. Mastoid air cells: Unremarkable as visualized. No mastoid effusion. IMPRESSION: 1. Chronic changes as described. No acute intracranial hemorrhage or space-occupying lesion. 2. Left post lateral scalp hematoma with no distinct skull fracture. Electronically signed by: Cathy Loza MD 07/20/22 22:[address] 07/20/22 19:56 Exam(s): CT L SPINE With Contrast IV Amt: 84 ML OPTIRAY 350 EXAM: CT Lumbar Spine With Intravenous Contrast CLINICAL HISTORY: Reason for exam: Trauma. TECHNIQUE: Axial computed tomography images of the lumbar spine with intravenous contrast. CTDI is 50.48 mGy and DLP is 2292.97 mGy-cm. Automated exposure control was utilized for the study. A dose lowering technique was utilized adhering to the principles of ALARA. CONTRAST: Patient received 84 ML OPTIRAY 350 of IV contrast COMPARISON: None. FINDINGS: Vertebrae: Significant scoliosis of the lumbar spine with convexity to the right. Multilevel bilateral facet hypertrophy. No acute fracture. Discs/spinal canal/neural foramina: Possible spinal stenosis at L3-L4 with thecal sac suboptimally seen at this level. Multilevel degenerative disease throughout the lumbar spine. Severe right-sided neuroforaminal encroachment at L3-L4 and L4-5. Soft tissues: Small fat-containing umbilical hernia. Vasculature: Atherosclerotic disease of the aorta with mild aneurysmal dilatation distally measuring 3.2 cm in maximum dimension. Kidneys and ureters: There is a left-sided intrarenal stone measuring 16mm. IMPRESSION: 1. Advanced degenerative disease of the lumbar spine scoliosis convexity to the type. 2. Right-sided neural foramina fortunes at L3-L4-L5. Possible spinal stenosis at L3-L4. Electronically signed by: Cathy Loza MD 07/20/22 22:[address] 07/20/22 19:56 Exam(s): CT T SPINE IV Amt: 84 ML OPTIRAY 350 EXAM: CT Thoracic Spine With Intravenous Contrast CLINICAL HISTORY: Reason for exam: Trauma. TECHNIQUE: Axial computed tomography images of the thoracic spine with intravenous contrast. CTDI is 50.48 mGy and DLP is 2292.97 mGy-cm. Automated exposure control was utilized for the study. A dose lowering technique was utilized adhering to the principles of ALARA. CONTRAST: Patient received 84 ML OPTIRAY 350 of IV contrast COMPARISON: None. FINDINGS: Vertebrae: Slight increased kyphosis. Minimal scoliosis with convexity to the left. Multilevel endplate spondylosis with narrowing of disc height consistent with disc degenerative disease. Diffuse osteopenia. Normal alignment. No acute fracture. Discs/spinal canal/neural foramina: No significant central canal stenosis or neuroforaminal encroachment. Soft tissues: Unremarkable. Lungs: Lung haynes reveal bilateral lower lobe atelectasis with possible interstitial fibrosis. IMPRESSION: Diffuse osteopenia along with degenerative disease as described. No acute fracture or subluxation. Electronically signed by: Cathy Loza MD 07/20/22 22:06 PM Code Status & VTE Plan Code Status Full code VTE Prophylaxis Plan VTE Prophylaxis will be ordered: Yes PG Care Time/CCT Total # of Minutes Spent Total Time Spent with Patient: Total time spent is greater than 50% in coordination of care (as documented) at patient's floor/unit and/or counseling patient: Coding Level of Care Code 13184 INT INP/OBS CARE 3/75MIN Diagnoses Folate deficiency E53.8 BPH with obstruction/lower urinary tract symptoms N40.1; N13.8 Impaired fasting glucose R73.01 Hypertension I10 Hypertension type: essential hypertension Third degree heart block I44.2 Atrial fibrillation I48.21 Atrial fibrillation type: permanent Cardiomyopathy I42.0 Cardiomyopathy type: dilated Anticoagulant long-term use Z79.01 Pacemaker Z95.0 Encephalopathy acute G93.40 (4) Hypertension Hypertension type: essential hypertension Qualified Code(s): I10 - Essential (primary) hypertension (6) Atrial fibrillation Atrial fibrillation type: permanent Qualified Code(s): I48.21 - Permanent atrial fibrillation (7) Cardiomyopathy Cardiomyopathy type: dilated Qualified Code(s): I42.0 - Dilated cardiomyopathy
[2022-07-21] MEDS ORDERED: SODIUM CHLORIDE 0.9% 1000ML 1,000 ML IV SCH (02:13)
[2022-07-21] MEDS ORDERED: ONDANSETRON INJ 2 MG/ML 2 ML VIAL IV PRN (02:13)
[2022-07-21] MEDS: ACETAMINOPHEN 325 MG TAB PO PRN ×2 (02:33→12:15)
[2022-07-21] MEDS: PIPERACILLIN/TAZOBACTAM 4.5 GM in DEXTROSE 5% 100 ML IV SCH ×3 (05:42→19:54)
[2022-07-21 06:38] LABS: Basophils # (auto) 0.02 K/uL (0-0.2); Basophils % (auto) 0.1 %; Hematocrit (blood only) 39.1 % (42.0-52.0); Immature Granulocytes # (auto) 0.06 K/uL (0.01-0.20); Immature Granulocytes % (auto) 0.4 %; Lymphocytes % (auto) 5.1 %; Mean Corpuscular Hemoglobin 31.3 pg (25.0-34.0); Mean Corpuscular Hgb Conc 35.8 g/dL (32.0-36.0); Mean Corpuscular Volume 87.5 fL (80.0-100.0); Monocytes # (auto) 1.21 K/uL (0.11-0.59); Monocytes % (auto) 8.8 %; Neutrophils # (auto) 11.72 K/uL (1.40-6.50); Neutrophils % (auto) 85.6 %; Platelet Count 295 K/uL (130-400); RDW Coefficient of Variation 13.6 % (11.5-14.5); RDW Standard Deviation 43.3 fL (36.4-46.3); Red Blood Count 4.47 M/uL (4.70-6.10); White Blood Count 13.71 K/ul (4.8-10.8)
[2022-07-21 06:47] LABS: Albumin Globulin Ratio 0.9 (0.9-2); Albumin Level 3.1 gm/dl (3.4-5.0); BUN Creatinine Ratio 41.2 (10-20); Bilirubin,Total 0.7 mg/dl (0.2-1.0); Calcium 8.7 mg/dl (8.6-10.3); Creatinine Clr Calc Pharmacy 40.2 ml/min; Est GFR (African American) 55.9 ml/min; Est GFR (Non-African American) 48.3 ml/min; Globulin 3.4 gm/dl (2.5-4.0); Magnesium 1.8 mg/dl (1.7-2.4); Total Protein 6.5 gm/dl (6.0-8.3)
--- NOTE | 2022-07-21 07:49 | XRay Report ---
SINGLE VIEW PELVIS; 2 VIEWS RIGHT HIP; 2 VIEWS LEFT HIP CLINICAL HISTORY: Fall. FINDINGS: An AP view of the pelvis with AP and frog leg views of the right and left hip are correlate d with pelvic CT performed the same day 07/20/2022. The skeletal structures are osteopenic. There is n o radiographic evidence of acute fracture involving the hips or bony pelvis. [id number] arthrit ic change and joint space narrowing is seen in the hips. There is no radiographic evidence of avascul ar necrosis of the femoral heads. Mild degenerative change is noted in the sacroiliac joints. Lumbosa cral spondylosis and scoliosis is partially imaged. The overlying soft tissues are within normal limi ts. There are numerous phleboliths in the pelvis. No bowel obstruction is seen. IMPRESSION: No acute bony abnormality is identified. Electronically signed by: Adarsh Ca M.D. 07/21/2022 7:48 AM
[2022-07-21] MEDS ORDERED: LACTATED RINGER'S 500 ML IV ONE (07:59)
[2022-07-21] MEDS: LACTATED RINGER'S 1,000 ML IV SCH ×2 (08:57→19:53)
[2022-07-21] MEDS ORDERED: FAMOTIDINE 20 MG in SYRINGE 3 ML IV SCH (09:00)
[2022-07-21 09:17] LABS: Base Excess VBG 0.3 mEq/L; HCO3 VBG 25 mmol/L; Oxygen Saturation VBG < 60.0 %; PCO2 VBG 42 mmHg (38-50); PO2 VBG 28 mmHg; pH VBG 7.39 (7.36-7.41)
--- NOTE | 2022-07-21 11:52 | Hospitalist Progress Note ---
Date of Service July 21, 2022 Assessment & Plan (1) Severe sepsis: Plan: Suspected Patient presented with leukocytosis, lactic acidosis, altered mental status, hypotension, etc. Leading cause of his presentation was an infectious etiology - UTI? Other? Was given appropriate IVF resuscitation, antibiotics, etc. His lactic acidosis resolved. I checked a procalcitonin level and it is mildly high. CRP is markedly elevated. Although u/a was suspicious for UTI his urine culture has already resulted as negative. Thus far his blood cx's are negative. He has b/l conjunctivitis on exam suggesting a viral etiology but Respiratory BioFire is fully negative. CT chest/abd/pelvis without obvious source of infection. He has findings on CT chest concerning for PF but no pneumonia. Patient had hypotension this am and additional LR fluid bolus was given followed by increase in his basal fluid rate to 100cc/hr. Thus far etiology for his presentation is uncertain. False negative urine cx? Biliary tract disease? (has very tender upper abdomen on exam, although gastritis seen on CT may account for his pain) Tick-borne illness? Other? Check RUQ u/s - r/o acute cholecystitis. Consider lyme/anaplasmosis testing. Follow blood cultures. Consider PSA and if level is markedly elevated he could have prostatitis. Urine cx is often negative in setting of prostatitis. Continue zosyn. Defer on MRSA coverage for now. Check a random cortisol level. (2) Acute metabolic encephalopathy: Plan: ammonia, VBG wnl this am. CT head without acute CVA or ICH. Leading cause of altered mental status is #1 above. If not infectious -- subacute stroke? thiamine deficiency with Wernicke's given his chronic etoh use? Other cause? Certainly he is at risk of stroke given his chronic a.fib and if he was noncompliant with Eliquis. Continue supportive care. Consider MRI brain if mental status does not improve. Consider B1 level and treating with empiric thiamine while awaiting level. Check a B12 level. TSH was wnl in 11/2021. (3) Rhabdomyolysis: Plan: 2nd to fall. Cont isotonic fluids. Repeat CPK in am. Elevated AST on LFTs likely due to high CPK. (4) Gastritis: Plan: CT a/p with findings concerning for gastritis. He is tender in the high abdomen which could be 2nd to gastritis. He drinks etoh nightly thus he could have gastritis from such. Place on IV PPI twice daily. His friend reports that he has had weight loss and poor appetite for some time. Indeed records show at least 20# of weight loss since July 2021. Gastric cancer?? need to get him through this illness first and consider GI consultation for EGD at some point when more stable. (5) Status cardiac pacemaker: Plan: Obtain pacer interrogation - r/o dysrhythmia as cause of fall vs syncopal ep isode vs other (6) Hypertension: Plan: Now with hypotension 2nd to #1. HOLD coreg. HOLD lisinopril. (7) BPH with obstruction/lower urinary tract symptoms: Plan: Certainly a risk factor for UTI/prostatitis. Sorto in place. IV abx have been given. (8) Conjunctivitis: Plan: b/l Respiratory BioFire panel negative Order erythromycin eye ointment at HS (9) Facial trauma: Plan: 2nd to fall fortunately no fractures on extensive imaging of head/face/c-spine (10) Weight loss: Plan: 20 # based on records over the last 12 months highly concerning in light of worsening appetite patient has had memory loss - could have early dementia and weight loss could be due to such alternatively could have malignancy would be concerned about "gastritis" seen on CT a/p - is this a gastric malignancy? again - focus on acute illness and address the weight loss following his recovery (11) Memory loss: Plan: based on his friend's description he has, at minimum, mild cognitive impairment. cannot rule out early dementia. check B12 level. check B1 level. TSH fall 2021 was wnl. given his progressive memory loss he will be at higher risk of delirium in the setting of illness. (12) Folate deficiency: Plan: h/o such. repeat level and Rx if necessary. (13) Permanent atrial fibrillation: Plan: per records he has chronic a.fib. he is being paced on monitor. hold Eliquis in light of his injuries, facial trauma, etc. (14) History of cardiomyopathy: Plan: 2nd to pacemaker? (pt ventricularly paces) other? per cardiology notes he has been Rx with BB & DARYL with improved EF. EF on last echo 50-55% with mild RV dysfunction. caution with IV fluids. due to hypotension HOLD BB; HOLD DARYL he does NOT examine in decompensated CHF (15) Anticoagulant long-term use: Plan: Eliquis, for chronic a.fib hold Eliquis in the setting of significant trauma Plan DVT proph - hold chemical means at least until tomorrow if H/H remain stable, no signs of bleeding, etc - then consider resuming Eliquis very complex care coordination today with extensive records review, speaking with pt's sister, speaking with pt's friend locally in [place], reviewing all imaging, etc total time on all care activities today 85 minutes Admission and Anticipated Discharge Date Admission Date: July 21, 2022 Subjective patient unable to provide any meaningful history or ROS except that he was not and had not children when asked if anything was bothering him he kept repeating "west" several times he fell asleep while examining him I spoke with the patient's sister, Nelli Gomez - she resides in [place], and has not seen Mr Andrews in a long time home phone - [phone] cell phone - [phone] She reported that Mr Andrews has been living independently in an apartment for many years She is uncertain about his general health since she has not seen him in quite some time She reports that 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; she could not give much in the way of details about this She confirmed that indeed he is single and has no children She also mentioned that he recently filled out a new living will - details of that also uncertain I then called and spoke with Jaylon Madera, a contact listed in the chart They have been friends together for about 20 years Mr Madera saw Mr Andrews on of last week They had gone out to eat and apparently Mr Andrews ate well Nellysanthosh took note of his appetite while out to lunch because in the last 6+ months he has noted Moshe's appetite to be very poor Moshe apparently looked OK physically while they were dining - no cough, no URI symptoms; Moshe wasn't complaining of anything in particular that day He has had issues with "sciatica" for some time, however He commented that Mr Andrews has lost weight of late and his "clothes are falling off of him" He has noted that his memory has been poor for at least 6 months He is confused at times Apparently he has had difficulty paying his bills and managing finances Mr Madera also mentioned that 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 but that it has become harder for him to work Mr Andrews got lost driving to the doctor's office recently as well Mr Andrews apparently drinks 2 beers/night at home and has been doing this for years Review of Systems Review of Systems: Unobtainable due to cognitive status Physical Exam Physical Exam: gen - altered, very difficult to understand his speech; even with speaking his word / sentence structure is altered face - ecchymoses on R ear, R orbital and R cheek eyes - orbital ecchymoses on R; PERRL; lens implants b/l; conjunctiva erythematous with purulent d/c bilaterally mouth - MM very dry neck - no JVD heart - RRR, s1 s2, no obvious murmur lungs - scant rales bases, otherwise CTA b/l abd - tender high epigastric area, BS+, no HSM, ND, soft ext - no edema, pulses 2+ b/l skin - b/l knee bruises musculo - I am able to place both hips and both knees through passive ROM without pain; b/l arms without trauma neuro - no obvious facial droop; strength seems symmetric b/l legs and arms; constant tremors vs rigors of all 4 limbs Results & Data Results & Data Vital Signs (Past 12 Hours) Vital Signs Temp Pulse Pulse Resp BP BP BP 07/21/22 09:22 36.5 C 77 22 112/63 07/21/22 07:58 37.2 C 81 20 80/51 L 07/21/22 07:53 36.5 C 70 20 79/52 L 86/53 L 07/21/22 01:59 113 H 07/21/22 02:00 07/21/22 02:00 37.1 C 72 22 106/55 L 07/21/22 01:00 36.3 C L 120 H 24 97/62 L 07/21/22 00:32 35.6 C L 134 H 22 101/65 07/21/22 00:00 95 H Pulse Ox O2 Del Method 07/21/22 09:22 97 Room Air 07/21/22 07:58 93 Room Air 07/21/22 07:53 95 Room Air 07/21/22 01:59 07/21/22 02:00 Room Air 07/21/22 02:00 95 Room Air 07/21/22 01:00 94 07/21/22 00:32 95 07/21/22 00:00 Laboratory Results Laboratory Results - last 24 hr 07/20/22 07/20/22 07/20/22 20:20 20:20 20:20 WBC RBC Hgb POC Hgb Hct POC Hct MCV MCH MCHC RDW Std Deviation RDW Coeff of Adolfo Plt Count MPV Immature Gran % (Auto) Neut % (Auto) Lymph % (Auto) [place] % (Auto) Eos % (Auto) Baso % (Auto) Neut # (Auto) Lymph # (Auto) [place] # (Auto) Eos # (Auto) Baso # (Auto) Immature Gran # (Auto) PT 13.2 H INR 1.2 H VBG pH VBG pCO2 VBG pO2 VBG HCO3 VBG O2 Saturation VBG Base Excess POC Sodium Sodium 143 POC Potassium Potassium 4.9 POC Chloride Chloride 104 Carbon Dioxide 24 POC Total CO2 Anion Gap 15 H POC Anion Gap POC BUN BUN 57 H Creatinine 1.04 POC Creatinine Est Cr Clr Drug Dosing Not Reportable Est GFR ( Amer) 74.0 Est GFR (Non-Af Amer) 63.8 BUN/Creatinine Ratio 54.8 H Glucose 122 H POC Glucose POC Glucose (other) Lactate 6.0 H* Calcium 10.3 POC Ioniz Calcium Brown Magnesium Total Bilirubin 0.8 AST 74 H ALT 38 Alkaline Phosphatase 71 Ammonia Total Creatine Kinase 1382 H Troponin I High Sens 16.3 C-Reactive Protein Total Protein 8.0 Albumin 3.7 Globulin 4.3 H Albumin/Globulin Ratio 0.9 Procalcitonin Urine Color Urine Appearance Urine pH Ur Specific [place] Urine Protein Urine Glucose (UA) Urine Ketones Urine Blood Urine Nitrite Urine Bilirubin Urine Urobilinogen Ur Leukocyte Esterase Urine WBC (Auto) Urine RBC (Auto) U Hyaline Cast (Auto) U Epithel Cells (Auto) Urine Bacteria (Auto) Ethyl Alcohol mg/dL SARS-CoV-2, RNA, NAAT 07/20/22 07/20/22 07/20/22 20:31 20:41 20:41 WBC 15.46 H RBC 5.23 Hgb 16.3 POC Hgb 17.3 Hct 47.9 POC Hct 51 MCV 91.6 MCH 31.2 MCHC 34.0 RDW Std Deviation 46.0 RDW Coeff of Adolfo 13.6 Plt Count 304 MPV 10.9 Immature Gran % (Auto) 0.5 Neut % (Auto) 87.2 Lymph % (Auto) 6.0 [place] % (Auto) 6.1 Eos % (Auto) 0.0 Baso % (Auto) 0.2 Neut # (Auto) 13.49 H Lymph # (Auto) 0.93 L [place] # (Auto) 0.94 H Eos # (Auto) 0.00 Baso # (Auto) 0.03 Immature Gran # (Auto) 0.07 PT INR VBG pH VBG pCO2 VBG pO2 VBG HCO3 VBG O2 Saturation VBG Base Excess POC Sodium 144 Sodium POC Potassium 4.9 Potassium POC Chloride 106 Chloride Carbon Dioxide POC Total CO2 23 L Anion Gap POC Anion Gap 20.0 POC BUN 50 H BUN Creatinine POC Creatinine 1.0 Est Cr Clr Drug Dosing Est GFR ( Amer) Est GFR (Non-Af Amer) BUN/Creatinine Ratio Glucose POC Glucose POC Glucose (other) 126 H Lactate Calcium POC Ioniz Calcium Brown 1.25 Magnesium Total Bilirubin AST ALT Alkaline Phosphatase Ammonia Total Creatine Kinase Troponin I High Sens C-Reactive Protein Total Protein Albumin Globulin Albumin/Globulin Ratio Procalcitonin Urine Color Urine Appearance Urine pH Ur Specific [place] Urine Protein Urine Glucose (UA) Urine Ketones Urine Blood Urine Nitrite Urine Bilirubin Urine Urobilinogen Ur Leukocyte Esterase Urine WBC (Auto) Urine RBC (Auto) U Hyaline Cast (Auto) U Epithel Cells (Auto) Urine Bacteria (Auto) Ethyl Alcohol mg/dL < 10.0 SARS-CoV-2, RNA, NAAT 07/20/22 07/20/22 07/20/22 20:45 22:18 22:48 WBC RBC Hgb POC Hgb Hct POC Hct MCV MCH MCHC RDW Std Deviation RDW Coeff of Adolfo Plt Count MPV Immature Gran % (Auto) Neut % (Auto) Lymph % (Auto) [place] % (Auto) Eos % (Auto) Baso % (Auto) Neut # (Auto) Lymph # (Auto) [place] # (Auto) Eos # (Auto) Baso # (Auto) Immature Gran # (Auto) PT INR VBG pH VBG pCO2 VBG pO2 VBG HCO3 VBG O2 Saturation VBG Base Excess POC Sodium Sodium POC Potassium Potassium POC Chloride Chloride Carbon Dioxide POC Total CO2 Anion Gap POC Anion Gap POC BUN BUN Creatinine POC Creatinine Est Cr Clr Drug Dosing Est GFR ( Amer) Est GFR (Non-Af Amer) BUN/Creatinine Ratio Glucose POC Glucose POC Glucose (other) Lactate 1.8 Calcium POC Ioniz Calcium Brown Magnesium Total Bilirubin AST ALT Alkaline Phosphatase Ammonia Total Creatine Kinase Troponin I High Sens C-Reactive Protein Total Protein Albumin Globulin Albumin/Globulin Ratio Procalcitonin Urine Color [place] Urine Appearance Turbid A Urine pH 5.0 Ur Specific [place] 1.026 Urine Protein 2+ H Urine Glucose (UA) Negative Urine Ketones Negative Urine Blood 3+ H Urine Nitrite Positive A Urine Bilirubin 1+ H Urine Urobilinogen Negative Ur Leukocyte Esterase 1+ H Urine WBC (Auto) 10-30 H Urine RBC (Auto) >30 H U Hyaline Cast (Auto) 1-5 U Epithel Cells (Auto) 10-20 H Urine Bacteria (Auto) Negative Ethyl Alcohol mg/dL SARS-CoV-2, RNA, NAAT NEGATIVE 07/21/22 07/21/22 07/21/22 05:58 05:58 05:58 WBC 13.71 H RBC 4.47 L Hgb 14.0 POC Hgb Hct 39.1 L POC Hct MCV 87.5 MCH 31.3 MCHC 35.8 RDW Std Deviation 43.3 RDW Coeff of Adolfo 13.6 Plt Count 295 MPV 11.0 Immature Gran % (Auto) 0.4 Neut % (Auto) 85.6 Lymph % (Auto) 5.1 [place] % (Auto) 8.8 Eos % (Auto) 0.0 Baso % (Auto) 0.1 Neut # (Auto) 11.72 H Lymph # (Auto) 0.70 L [place] # (Auto) 1.21 H Eos # (Auto) 0.00 Baso # (Auto) 0.02 Immature Gran # (Auto) 0.06 PT INR VBG pH VBG pCO2 VBG pO2 VBG HCO3 VBG O2 Saturation VBG Base Excess POC Sodium Sodium 142 POC Potassium Potassium 4.0 POC Chloride Chloride 108 H Carbon Dioxide 20 L POC Total CO2 Anion Gap 14 H POC Anion Gap POC BUN BUN 54 H Creatinine 1.31 POC Creatinine Est Cr Clr Drug Dosing 40.2 Est GFR ( Amer) 55.9 Est GFR (Non-Af Amer) 48.3 BUN/Creatinine Ratio 41.2 H Glucose 84 POC Glucose POC Glucose (other) Lactate 1.5 Calcium 8.7 POC Ioniz Calcium Brown Magnesium 1.8 Total Bilirubin 0.7 AST 72 H ALT 35 Alkaline Phosphatase 53 Ammonia Total Creatine Kinase 1311 H Troponin I High Sens C-Reactive Protein Total Protein 6.5 Albumin 3.1 L Globulin 3.4 Albumin/Globulin Ratio 0.9 Procalcitonin Urine Color Urine Appearance Urine pH Ur Specific [place] Urine Protein Urine Glucose (UA) Urine Ketones Urine Blood Urine Nitrite Urine Bilirubin Urine Urobilinogen Ur Leukocyte Esterase Urine WBC (Auto) Urine RBC (Auto) U Hyaline Cast (Auto) U Epithel Cells (Auto) Urine Bacteria (Auto) Ethyl Alcohol mg/dL SARS-CoV-2, RNA, NAAT 07/21/22 07/21/22 07/21/22 08:48 08:48 08:48 WBC RBC Hgb POC Hgb Hct POC Hct MCV MCH MCHC RDW Std Deviation RDW Coeff of Adolfo Plt Count MPV Immature Gran % (Auto) Neut % (Auto) Lymph % (Auto) [place] % (Auto) Eos % (Auto) Baso % (Auto) Neut # (Auto) Lymph # (Auto) [place] # (Auto) Eos # (Auto) Baso # (Auto) Immature Gran # (Auto) PT INR VBG pH VBG pCO2 VBG pO2 VBG HCO3 VBG O2 Saturation VBG Base Excess POC Sodium Sodium POC Potassium Potassium POC Chloride Chloride Carbon Dioxide POC Total CO2 Anion Gap POC Anion Gap POC BUN BUN Creatinine POC Creatinine Est Cr Clr Drug Dosing Est GFR ( Amer) Est GFR (Non-Af Amer) BUN/Creatinine Ratio Glucose POC Glucose POC Glucose (other) Lactate Calcium POC Ioniz Calcium Brown Magnesium Total Bilirubin AST ALT Alkaline Phosphatase Ammonia 27.0 Total Creatine Kinase Troponin I High Sens C-Reactive Protein 13.45 H Total Protein Albumin Globulin Albumin/Globulin Ratio Procalcitonin 0.58 H Urine Color Urine Appearance Urine pH Ur Specific [place] Urine Protein Urine Glucose (UA) Urine Ketones Urine Blood Urine Nitrite Urine Bilirubin Urine Urobilinogen Ur Leukocyte Esterase Urine WBC (Auto) Urine RBC (Auto) U Hyaline Cast (Auto) U Epithel Cells (Auto) Urine Bacteria (Auto) Ethyl Alcohol mg/dL SARS-CoV-2, RNA, NAAT 07/21/22 07/21/22 08:48 09:21 WBC RBC Hgb POC Hgb Hct POC Hct MCV MCH MCHC RDW Std Deviation RDW Coeff of Adolfo Plt Count MPV Immature Gran % (Auto) Neut % (Auto) Lymph % (Auto) [place] % (Auto) Eos % (Auto) Baso % (Auto) Neut # (Auto) Lymph # (Auto) [place] # (Auto) Eos # (Auto) Baso # (Auto) Immature Gran # (Auto) PT INR VBG pH 7.39 VBG pCO2 42 VBG pO2 28 VBG HCO3 25 VBG O2 Saturation < 60.0 VBG Base Excess 0.3 POC Sodium Sodium POC Potassium Potassium POC Chloride Chloride Carbon Dioxide POC Total CO2 Anion Gap POC Anion Gap POC BUN BUN Creatinine POC Creatinine Est Cr Clr Drug Dosing Est GFR ( Amer) Est GFR (Non-Af Amer) BUN/Creatinine Ratio Glucose POC Glucose 92 POC Glucose (other) Lactate Calcium POC Ioniz Calcium Brown Magnesium Total Bilirubin AST ALT Alkaline Phosphatase Ammonia Total Creatine Kinase Troponin I High Sens C-Reactive Protein Total Protein Albumin Globulin Albumin/Globulin Ratio Procalcitonin Urine Color Urine Appearance Urine pH Ur Specific [place] Urine Protein Urine Glucose (UA) Urine Ketones Urine Blood Urine Nitrite Urine Bilirubin Urine Urobilinogen Ur Leukocyte Esterase Urine WBC (Auto) Urine RBC (Auto) U Hyaline Cast (Auto) U Epithel Cells (Auto) Urine Bacteria (Auto) Ethyl Alcohol mg/dL SARS-CoV-2, RNA, NAAT PG Care Time/CCT Total # of Minutes Spent Total Time Spent with Patient: Total time spent is greater than 50% in coordination of care (as documented) at patient's floor/unit and/or counseling patient: Prolonged Care Time Prolonged Care Time: Yes Total Prolonged Care Time: 85 Coding Level of Care Code 17837 SUB INP/OBS CARE 3/50MIN (25 - SIGNIFICANT, SEPARATELY IDENTIFIABLE ) Diagnoses Severe sepsis A41.9; R65.20 Acute metabolic encephalopathy G93.41 Rhabdomyolysis M62.82 Gastritis K29.70 Status cardiac pacemaker Z95.0 Hypertension I10 Hypertension type: essential hypertension BPH with obstruction/lower urinary tract symptoms N40.1; N13.8 Conjunctivitis H10.9 Facial trauma S09.93XA Weight loss R63.4 Memory loss R41.3 Folate deficiency E53.8 Permanent atrial fibrillation I48.21 History of cardiomyopathy Z86.79 Anticoagulant long-term use Z79.01 Additional Codes Prolonged Care Time - Prolonged Care Time: Yes ([id number]) (6) Hypertension Hypertension type: essential hypertension Qualified Code(s): I10 - Essential (primary) hypertension
[2022-07-21] MEDS: PANTOprazole 40 MG in SYRINGE 0 ML IV SCH ×2 (12:17→19:53)
[2022-07-21 12:56] LABS: Adenovirus PCR Not Detected (NotDetected); Bordetella parapertussis PCR Not Detected (NotDetected); Bordetella pertussis PCR Not Detected (NotDetected); Chlamydia pneumoniae PCR Not Detected (NotDetected); Coronavirus 229E PCR Not Detected (NotDetected); Coronavirus CoV-2 (COVID19)PCR Not Detected (NotDetected); Coronavirus HKU1 PCR Not Detected (NotDetected); Coronavirus NL63 PCR Not Detected (NotDetected); Coronavirus OC43PCR Not Detected (NotDetected); Human Metapneumovirus PCR Not Detected (NotDetected); Influenza A PCR Not Detected (NotDetected); Influenza B PCR Not Detected (NotDetected); Mycoplasma pneumoniae PCR Not Detected (NotDetected); Parainfluenza Virus 1 PCR Not Detected (NotDetected); Parainfluenza Virus 2 PCR Not Detected (NotDetected); Parainfluenza Virus 3 PCR Not Detected (NotDetected); Parainfluenza Virus 4 PCR Not Detected (NotDetected); Respiratory Syncytial VirusPCR Not Detected (NotDetected); Rhinovirus/Enterovirus PCR Not Detected (NotDetected)
[2022-07-21 20:43] LABS: BUN Creatinine Ratio 35.5 (10-20); Calcium 8.9 mg/dl (8.6-10.3); Creatinine Clr Calc Pharmacy 31.2 ml/min; Est GFR (African American) 41.1 ml/min; Est GFR (Non-African American) 35.5 ml/min; Potassium 3.8 mmol/L (3.5-5.1)
[2022-07-21] MEDS ORDERED: ERYTHROMYCIN OP OINT 1 GM PKT OPB SCH (21:00)
[2022-07-21 21:23] LABS: Lyme Ab IgG w/WB Rflx Negative (Negative); Lyme Ab IgM w/WB Rflx Negative (Negative)
[2022-07-21] MEDS: THIAMINE HCL 500 MG in SODIUM CHLORIDE 0.9% 50 ML IV SCH (22:01)
[2022-07-21] MEDS: ERYTHROMYCIN OP OINT 5 MG/GM 3.5 GM TUBE OP SCH (22:01)
[2022-07-22] MEDS: THIAMINE HCL 500 MG in SODIUM CHLORIDE 0.9% 50 ML IV SCH ×3 (05:34→19:59)
[2022-07-22] MEDS: PIPERACILLIN/TAZOBACTAM 4.5 GM in DEXTROSE 5% 100 ML IV SCH ×3 (05:34→20:00)
[2022-07-22] MEDS: LACTATED RINGER'S 1,000 ML IV SCH ×2 (05:55→15:09)
[2022-07-22] MEDS: PANTOprazole 40 MG in SYRINGE 0 ML IV SCH ×2 (08:07→20:02)
--- NOTE | 2022-07-22 08:13 | Ultrasound Report ---
ABDOMINAL ULTRASOUND, RIGHT UPPER QUADRANT HISTORY: upper abd pain, possible sepsis, r/o cholecystitis. COMPARISON: Abdomen and pelvis CT 07/20/2022. FINDINGS: Pancreas: Obscured by overlying bowel gas. Liver: The left hepatic lobe is obscured by overlying bowel gas. The remaining liver appears unremark able. No hepatic masses identified. The main portal vein is patent. Gallbladder: The gallbladder is partially filled with sludge. There is borderline thickening of the g allbladder wall to 3 mm. No gallstones identified. Negative sonographic Mercado sign. CBD: 3 mm. There is a 5 mm echogenic focus within the common bile duct which may represent a stone. Right kidney: No hydronephrosis. IMPRESSION: 1. The common bile duct is borderline distended up to 8 mm and contains a 5 mm echogenic focus which is concerning for choledocholithiasis. 2. Mildly distended gallbladder containing sludge and a borderline thickened wall. However, negative sonographic Mercado sign. 3. The pancreas was obscured by overlying bowel gas. ACT 112: Negative or not required by law. Electronically signed by: Mega Kovacs M.D. 07/22/2022 8:12 AM
[2022-07-22 09:47] LABS: Basophils # (auto) 0.04 K/uL (0-0.2); Basophils % (auto) 0.4 %; Eosinophils # (auto) 0.03 K/uL (0-0.50); Eosinophils % (auto) 0.3 %; Hematocrit (blood only) 37.8 % (42.0-52.0); Hemoglobin 13.5 g/dl (14.0-18.0); Immature Granulocytes # (auto) 0.03 K/uL (0.01-0.20); Immature Granulocytes % (auto) 0.3 %; Lymphocytes # (auto) 1.62 K/uL (1.2-3.4); Lymphocytes % (auto) 16.6 %; Mean Corpuscular Hemoglobin 32.3 pg (25.0-34.0); Mean Corpuscular Hgb Conc 35.7 g/dL (32.0-36.0); Mean Corpuscular Volume 90.4 fL (80.0-100.0); Mean Platelet Volume 10.9 fL (9.4-12.4); Monocytes # (auto) 0.98 K/uL (0.11-0.59); Neutrophils # (auto) 7.08 K/uL (1.40-6.50); Neutrophils % (auto) 72.4 %; Platelet Count 216 K/uL (130-400); RDW Coefficient of Variation 14.5 % (11.5-14.5); RDW Standard Deviation 47.6 fL (36.4-46.3); Red Blood Count 4.18 M/uL (4.70-6.10); White Blood Count 9.78 K/ul (4.8-10.8)
[2022-07-22 09:56] LABS: BUN Creatinine Ratio 36.7 (10-20); C Reactive Protein 10.03 mg/dl (0-0.5); Calcium 8.8 mg/dl (8.6-10.3); Creatinine Clr Calc Pharmacy 48.4 ml/min; Est GFR (African American) 69.9 ml/min; Est GFR (Non-African American) 60.3 ml/min; Potassium 3.5 mmol/L (3.5-5.1)
--- NOTE | 2022-07-22 10:52 | Electrocardiogram Report ---
Test Reason : Blood Pressure : / mmHG Vent. Rate : 093 BPM Atrial Rate : 107 BPM P-R Int : 000 ms QRS Dur : 162 ms QT Int : 566 ms P-R-T Axes : 000 -80 091 degrees QTc Int : 703 ms Poor data quality, interpretation may be adversely affected Ventricular-paced rhythm Abnormal ECG When compared with ECG of 18-MAY-2022 16:26, Vent. rate has increased BY 9 BPM Confirmed by Colt Apple ([id number]) on 07/22/2022 10:52:27 AM Referred By: REFERRED SELF Confirmed By:Colt Apple
--- NOTE | 2022-07-22 13:47 | Gastrointestinal Consultation ---
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 Please continue to hold apixaban NPO after midnight ERCP Thursday Continue ABX IVF maintenance Antiemetics PRN Analgesia PRN Can continue IV PPI BID x 48 hours then convert to PO PPI twice daily OP EGD if needed TigerText sent to primary team to discuss who would be available to sign consent We appreciate assistance in the management of any serological abnormality and corrections to include: hemoglobin >7, INR <2, platelets >50,000, potassium levels >3.5 but <5.3, and sodium levels within 5 points of the reference range prior to endoscopic evaluation. Thank you for allowing us to participate in the care of this patient. Please call with any acute changes, questions or concerns. Please see addendum below with additional recommendation from my supervising physician. Plan I discussed with Cruz sister, Nelli, who said she would be available tomorrow for mycujooet. either at [phone] or Supervising Physician Co-Signing Physician Notes I have personally seen and examined the patient with ELIECER Durham. Her note reflects my exam and findings. I agree with her impression and plan. Plan for ERCP given CBD abnormality. Andrew Lazcano M.D. 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 GI was asked to evaluate for abnormal imaging. Pt was seen and identified, chart reviewed. He is alert and oriented to self but is unable to provide much medical history. He suggests that he sometimes has abd pain. But denies and current pain, nausea or vomiting. He does not recall any change in bowel habits and denies any black or bloody stools. There is report of weight loss per chart review. No fever, chills, CP, SOB. VSS On Zosyn On eliquis HGB stable INR 1.2 Tbili 0.7 AST 72 ALT 35 ALKP 53 ABD US 2022: The common bile duct is borderline distended up to 8 mm and contains a 5 mm echogenic focus which is concerning for chol edocholithiasis.Mildly distended gallbladder containing sludge and a borderline thickened wall. However, negative sonographic Mercado sign. CTAP 2022: 1. No evidence of visceral intra-abdominal injury. Large left-sided intrarenal stone measuring 2 mm. Remainder of abdominal viscera unremarkable.Possible gastritis. Increased fecal debris within the colon, cannotexclude constipation. Diverticulosis with no signs of diverticulitis.No bowel obstruction. Allergies Allergy/AdvReac Type Severity Reaction Status Date / Time ciprofloxacin Allergy Intermediate Rash Verified 07/20/22 23:37 Quinolones Allergy Intermediate CIPRO-RASH Verified 07/20/22 23:37 Home Medications Medication Instructions Recorded Confirmed Type clobetasol-emollient 0.05 % 1 appln topical BID PRN flare up 11/15/19 07/20/22 History topical cream #1 g cholecalciferol (vitamin D3) 50 50 mcg PO DAILY #30 caps 05/29/20 07/20/22 Rx mcg (2,000 unit) capsule carvedilol 25 mg tablet 25 mg PO BID #180 tabs 07/05/21 07/20/22 Rx cyanocobalamin (vitamin B-12) 1,000 mcg PO DAILY #30 tabs 01/03/22 07/20/22 Rx 1,000 mcg tablet lisinopril 5 mg tablet 5 mg PO DAILY #100 tabs 02/10/22 07/20/22 Rx apixaban 5 mg tablet (Eliquis) 5 mg PO BID #180 tabs 02/11/22 07/20/22 Rx folic acid 1 mg tablet 1 mg PO DAILY #90 tabs 02/19/22 07/20/22 Rx Patient History Medical History (Updated 07/21/22 @ 20:38 by Jovi Leyva MD) Atrial fibrillation Cardiomyopathy Hypertension Impaired fasting glucose Third degree heart block Surgical History (Updated 07/21/22 @ 11:52 by Jovi Leyva MD) History of colonoscopy History of laparoscopy history of pyelotomy with lithotomy History of pacemaker Family History Father Old age Mother Old age Grandfather (Maternal) Myocardial infarction Other No significant family history Denies family history of Ovarian cancer Prostate cancer Breast cancer Lung cancer Colorectal cancer Stroke Social History Smoking Status: Never smoker Second Hand Exposure: No; Do You Dip or Chew Tobacco: No; Hx Alcohol Use: Yes Alcohol type: beer Alcohol Intake Frequency: 4 or More x per/Week Hx Substance Use: No Preferred Language: Citizen Of [place] Communication Ability: Effective Visual Impairment: Limited Hearing Ability: Hard of Hearing [facility] Coordinator Required: No Beliefs That Will Affect Care: None marital status: Single Current Living Situation: Alone current occupational status: retired How many Children do You have: 0 Other Information That Helps Us Care for You: No Feels Safe at Home: Yes Safety Concerns: Feels Safe At This Time Childhood Exposure to Second-Hand Smoke: Yes caffeine: Yes Dental Care, Regularly: No Physical Activity Frequency: 1-2 Times per Week Seatbelt Use: always Sunscreen Use: No Assistive Devices: Wheelchair Review of Systems Review of Systems: All systems reviewed & are unremarkable except as noted in HPI & below Physical Exam Constitutional: WD/WN, vitals as above + ecchymosis on face/eye Respiratory: normal respiratory effort, lungs clear to auscultation Cardiovascular: Rate/Rhythm: regular rate Gastrointestinal (Abdomen): Inspection/Auscultation: normal bowel sounds Percussion/Palpation: abdomen soft; abdomen nontender, no guarding and abdomen not rigid Skin: no rashes, warm and dry Results & Data Vital Signs (Past 12 Hours) Vital Signs Temp Pulse Pulse Resp BP Pulse Ox O2 Del Method 07/22/22 11:48 36.6 C 82 18 126/76 93 Room Air 07/22/22 09:01 Room Air 07/22/22 08:15 36.4 C L 75 18 132/81 94 Room Air 07/22/22 07:41 63 07/22/22 04:24 36.6 C 113 H 18 145/71 H 100 Room Air Laboratory Results 07/22/22 07/22/22 07/21/22 Range/Units 09:12 09:12 19:40 WBC 9.78 (4.8-10.8) K/ul RBC 4.18 L (4.70-6.10) M/uL Hgb 13.5 L (14.0-18.0) g/dl Hct 37.8 L (42.0-52.0) % MCV 90.4 (80.0-100.0) fL MCH 32.3 (25.0-34.0) pg MCHC 35.7 (32.0-36.0) g/dL RDW Std Deviation 47.6 H (36.4-46.3) fL RDW Coeff of Adolfo 14.5 (11.5-14.5) % Plt Count 216 (130-400) K/uL MPV 10.9 (9.4-12.4) fL Immature Gran % (Auto) 0.3 % Neut % (Auto) 72.4 % Lymph % (Auto) 16.6 % [place] % (Auto) 10.0 % Eos % (Auto) 0.3 % Baso % (Auto) 0.4 % Neut # (Auto) 7.08 H (1.40-6.50) K/uL Lymph # (Auto) 1.62 (1.2-3.4) K/uL [place] # (Auto) 0.98 H (0.11-0.59) K/uL Eos # (Auto) 0.03 (0-0.50) K/uL Baso # (Auto) 0.04 (0-0.2) K/uL Immature Gran # (Auto) 0.03 (0.01-0.20) K/uL ESR (0-20) mm/hr Sodium 145 (136-145) mmol/L Potassium 3.5 (3.5-5.1) mmol/L Chloride 113 H (98-107) mmol/L Carbon Dioxide 25 (21-32) mmol/L Anion Gap 7 (3-11) BUN 40 H D (6-23) mg/dl Creatinine 1.09 D (0.6-1.4) mg/dl Est Cr Clr Drug Dosing 48.4 ml/min Est GFR ( Amer) 69.9 ml/min Est GFR (Non-Af Amer) 60.3 ml/min BUN/Creatinine Ratio 36.7 H (10-20) Glucose 99 (70-99(Fasting)) mg/dl Calcium 8.8 (8.6-10.3) mg/dl Total Creatine Kinase 586 H (30-223) U/L C-Reactive Protein 10.03 H (0-0.5) mg/dl Vitamin B1 Pending Vitamin B12 (180-914) pg/ml Folate (>5.38) ng/ml Random Cortisol mcg/dl Anaplasma Smear Lyme Disease IgG Ab (Negative) Lyme Disease IgM Ab (Negative) 07/21/22 07/21/22 07/21/22 Range/Units 19:40 19:40 19:40 WBC (4.8-10.8) K/ul RBC (4.70-6.10) M/uL Hgb (14.0-18.0) g/dl Hct (42.0-52.0) % MCV (80.0-100.0) fL MCH (25.0-34.0) pg MCHC (32.0-36.0) g/dL RDW Std Deviation (36.4-46.3) fL RDW Coeff of Adolfo (11.5-14.5) % Plt Count (130-400) K/uL MPV (9.4-12.4) fL Immature Gran % (Auto) % Neut % (Auto) % Lymph % (Auto) % [place] % (Auto) % Eos % (Auto) % Baso % (Auto) % Neut # (Auto) (1.40-6.50) K/uL Lymph # (Auto) (1.2-3.4) K/uL [place] # (Auto) (0.11-0.59) K/uL Eos # (Auto) (0-0.50) K/uL Baso # (Auto) (0-0.2) K/uL Immature Gran # (Auto) (0.01-0.20) K/uL ESR (0-20) mm/hr Sodium (136-145) mmol/L Potassium (3.5-5.1) mmol/L Chloride (98-107) mmol/L Carbon Dioxide (21-32) mmol/L Anion Gap (3-11) BUN (6-23) mg/dl Creatinine (0.6-1.4) mg/dl Est Cr Clr Drug Dosing ml/min Est GFR ( Amer) ml/min Est GFR (Non-Af Amer) ml/min BUN/Creatinine Ratio (10-20) Glucose (70-99(Fasting)) mg/dl Calcium (8.6-10.3) mg/dl Total Creatine Kinase (30-223) U/L C-Reactive Protein (0-0.5) mg/dl Vitamin B1 Vitamin B12 1056 H (180-914) pg/ml Folate 14.59 (>5.38) ng/ml Random Cortisol mcg/dl Anaplasma Smear See Comment Lyme Disease IgG Ab Negative (Negative) Lyme Disease IgM Ab Negative (Negative) 07/21/22 07/21/22 07/21/22 Range/Units 19:40 19:40 19:40 WBC (4.8-10.8) K/ul RBC (4.70-6.10) M/uL Hgb (14.0-18.0) g/dl Hct (42.0-52.0) % MCV (80.0-100.0) fL MCH (25.0-34.0) pg MCHC (32.0-36.0) g/dL RDW Std Deviation (36.4-46.3) fL RDW Coeff of Adolfo (11.5-14.5) % Plt Count (130-400) K/uL MPV (9.4-12.4) fL Immature Gran % (Auto) % Neut % (Auto) % Lymph % (Auto) % [place] % (Auto) % Eos % (Auto) % Baso % (Auto) % Neut # (Auto) (1.40-6.50) K/uL Lymph # (Auto) (1.2-3.4) K/uL [place] # (Auto) (0.11-0.59) K/uL Eos # (Auto) (0-0.50) K/uL Baso # (Auto) (0-0.2) K/uL Immature Gran # (Auto) (0.01-0.20) K/uL ESR 55 H (0-20) mm/hr Sodium 142 (136-145) mmol/L Potassium 3.8 (3.5-5.1) mmol/L Chloride 110 H (98-107) mmol/L Carbon Dioxide 23 (21-32) mmol/L Anion Gap 9 (3-11) BUN 60 H (6-23) mg/dl Creatinine 1.69 H D (0.6-1.4) mg/dl Est Cr Clr Drug Dosing 31.2 ml/min Est GFR ( Amer) 41.1 ml/min Est GFR (Non-Af Amer) 35.5 ml/min BUN/Creatinine Ratio 35.5 H (10-20) Glucose 100 H (70-99(Fasting)) mg/dl Calcium 8.9 (8.6-10.3) mg/dl Total Creatine Kinase (30-223) U/L C-Reactive Protein (0-0.5) mg/dl Vitamin B1 Vitamin B12 (180-914) pg/ml Folate (>5.38) ng/ml Random Cortisol 22.29 mcg/dl Anaplasma Smear Lyme Disease IgG Ab (Negative) Lyme Disease IgM Ab (Negative)
--- NOTE | 2022-07-22 15:05 | Surgery Consultation ---
Date of Consultation July 22, 2022 Assessment & Plan (1) Choledocholithiasis: This is an 87yM with a PMH significant for cardiomyopathy, pacemaker status, afib on eliquis, BPH who presented to the [facility] ED on 07/21/22 after being found down after a fall in his apartment complex. Due to some upper abdominal pain el icited on exam he underwent a RUQ US that showed that the common bile duct is borderline distended up to 8 mm and contains a 5 mm echogenic focus which is concerning for choledocholithiasis, along with a mildly distended gallbladder containing sludge and a borderline thickened wall. Today's labs show WBC 9.7 (13), Hbg 13.5, CK 58, Tb 0.7(Yesterday). Vital signs are stable. On exam abdomen is soft, non distended, non tender. Patient currently denies any abdominal pain, n/v. GI has evaluated the patient and is planning on performing an ERCP tomorrow due to concern for choledocholithiasis. We will await their findings prior to making a decision on surgical intervention for lap taylor. Continue to hold patient's blood thinners in the event of any upcoming procedures from our end. Will follow. History of Present Illness Attending Physician: Ravi Lau History of Present Illness This is an 87yM with a PMH significant for cardiomyopathy, pacemaker status, afib on eliquis, BPH who presented to the [facility] ED on 07/21/22 after being found down after a fall in his apartment complex. There was concern for sepsis on admission, but outside of an abnormal UA with normal UCx there was no true source was initially founded. A CT a/p was obtained that revealed evidence of possible gastritis without any other acute abnormalities. He was also found to be in rhabdomyolysis. Due to some upper abdominal pain elicited on exam he underwent a RUQ US that showed that the common bile duct is borderline distended up to 8 mm and contains a 5 mm echogenic focus which is concerning for choledocholithiasis, along with a mildly distended gallbladder containing sludge and a borderline thickened wall. After RUQ US resulted we have been consulted. The patient denies any abdominal pain, nausea/vomiting, fevers/chills, CP/SOB, change in bowel habits, tea colored urine, or pale colored stools. He tells me that he lives alone in an apartment complex. Has some friends, but no family nearby. Drinks 3-4 beers a day. Reports he is ambulatory, drives, and grocery shops and can prepare his food. Reports a past surgical history of an appendectomy although on CT scan in 2021 reports a normal appendix and what he believes was some sort of hernia repair in the past. Allergies Allergy/AdvReac Type Severity Reaction Status Date / Time ciprofloxacin Allergy Intermediate Rash Verified 07/20/22 23:37 Quinolones Allergy Intermediate CIPRO-RASH Verified 07/20/22 23:37 Home Medications Medication Instructions Recorded Confirmed Type clobetasol-emollient 0.05 % 1 appln topical BID PRN flare up 11/15/19 07/20/22 History topical cream #1 g cholecalciferol (vitamin D3) 50 50 mcg PO DAILY #30 caps 05/29/20 07/20/22 Rx mcg (2,000 unit) capsule carvedilol 25 mg tablet 25 mg PO BID #180 tabs 07/05/21 07/20/22 Rx cyanocobalamin (vitamin B-12) 1,000 mcg PO DAILY #30 tabs 01/03/22 07/20/22 Rx 1,000 mcg tablet lisinopril 5 mg tablet 5 mg PO DAILY #100 tabs 02/10/22 07/20/22 Rx apixaban 5 mg tablet (Eliquis) 5 mg PO BID #180 tabs 02/11/22 07/20/22 Rx folic acid 1 mg tablet 1 mg PO DAILY #90 tabs 02/19/22 07/20/22 Rx Patient History Medical History (Updated 07/22/22 @ 17:48 by Jabari Manuel MD) Atrial fibrillation Cardiomyopathy Hypertension Impaired fasting glucose Third degree heart block Surgical History History of colonoscopy History of laparoscopy history of pyelotomy with lithotomy History of pacemaker Family History Father Old age Mother Old age Grandfather (Maternal) Myocardial infarction Other No significant family history Denies family history of Ovarian cancer Prostate cancer Breast cancer Lung cancer Colorectal cancer Stroke Social History Smoking Status: Never smoker Second Hand Exposure: No; Do You Dip or Chew Tobacco: No; Hx Alcohol Use: Yes Alcohol type: beer Alcohol Intake Frequency: 4 or More x per/Week Hx Substance Use: No Preferred Language: Lithuanian Communication Ability: Effective Visual Impairment: Limited Hearing Ability: Hard of Hearing [place] Physical Therapist Required: No Beliefs That Will Affect Care: None marital status: Single Current Living Situation: Alone current occupational status: retired How many Children do You have: 0 Other Information That Helps Us Care for You: No Feels Safe at Home: Yes Safety Concerns: Feels Safe At This Time Childhood Exposure to Second-Hand Smoke: Yes caffeine: Yes Dental Care, Regularly: No Physical Activity Frequency: 1-2 Times per Week Seatbelt Use: always Sunscreen Use: No Assistive Devices: Wheelchair Review of Systems Constitutional: no fever and no chills Respiratory: no dyspnea Cardiovascular: no chest pain Gastrointestinal: no abdominal pain, no nausea, no vomiting, no change in bowel habits and no change in stools Physical Exam Physical Exam: awake Constitutional: + frail appearing; no acute distress Respiratory: normal respiratory effort Gastrointestinal (Abdomen): Inspection/Auscultation: abdomen not distended Percussion/Palpation: abdomen soft and + hernia (reducible umbilical, non tender); abdomen nontender Results & Data Vital Signs (Past 12 Hours) Vital Signs Temp Pulse Pulse Resp BP Pulse Ox O2 Del Method 07/22/22 14:57 65 07/22/22 11:48 36.6 C 82 18 126/76 93 Room Air 07/22/22 09:01 Room Air 07/22/22 08:15 36.4 C L 75 18 132/81 94 Room Air 07/22/22 07:41 63 07/22/22 04:24 36.6 C 113 H 18 145/71 H 100 Room Air Diagnostic Findings Exam(s): CT ABDOMEN + PELVIS With Contrast IV Amt: 84 ML OPTIRAY 350 EXAM: CT Abdomen and Pelvis With Intravenous Contrast CLINICAL HISTORY: Reason for exam: Trauma. TECHNIQUE: Axial computed tomography images of the abdomen and pelvis with intravenous contrast. CTDI is 50.48 mGy and DLP is 2292.97 mGy-cm. Automated exposure control was utilized for the study. A dose lowering technique was utilized adhering to the principles of ALARA. CONTRAST: Patient received 84 ML OPTIRAY 350 of IV contrast COMPARISON: 12/28/2021. FINDINGS: Lung bases: Lung bases are described in detail in the accompanying CT chest report. Heart: Borderline cardiomegaly with coronary artery calcifications. Pacemaker leads in place. ABDOMEN: Liver: Unremarkable. No mass. Gallbladder and bile ducts: Unremarkable. No calcified stones. No ductal dilation. Pancreas: Unremarkable. No mass. No ductal dilation. Spleen: Unremarkable. No splenomegaly. Adrenals: Unremarkable. No mass. Kidneys and ureters: Large stone in the left upper renal pole measuring 22 mm. Nonspecific fullness of the left pelvis with no hydronephrosis. Normal right kidney. Stomach and bowel: Incompletely distended stomach with areas of mild thickening of the wall, cannot exclude gastritis. Diverticulosis throughout the colon with no signs of diverticulitis. Increased fecal debris within the colon which may indicate mild constipation. PELVIS: Appendix: No findings to suggest acute appendicitis. Bladder: Unremarkable. No mass. Reproductive: Unremarkable as visualized. ABDOMEN and PELVIS: Intraperitoneal space: Unremarkable. No free air. No significant fluid collection. Bones/joints: Advanced degenerative disease of the spine with scoliosis, convexity to the right. Degenerative disease of bilateral hips. Diffuse osteopenia. Otherwise pelvic bones are unremarkable with no distinct fracture. No dislocation. Soft tissues: Small fat-containing umbilical hernia. Vasculature: Calcified atherosclerotic disease of aorta with mild aneurysmal dilatation in the mid distal portion up to 3.2 x 2.8 cm. Lymph nodes: Unremarkable. No enlarged lymph nodes. IMPRESSION: 1. No evidence of visceral intra-abdominal injury. 2. Large left-sided intrarenal stone measuring 2 mm. Remainder of abdominal viscera unremarkable. 3. Possible gastritis. Increased fecal debris within the colon, cannot exclude constipation. Diverticulosis with no signs of diverticulitis. No bowel obstruction. Electronically signed by: Cathy Loza MD 07/20/22 22:20 PM ABDOMINAL ULTRASOUND, RIGHT UPPER QUADRANT HISTORY: upper abd pain, possible sepsis, r/o cholecystitis. COMPARISON: Abdomen and pelvis CT 07/20/2022. FINDINGS: Pancreas: Obscured by overlying bowel gas. Liver: The left hepatic lobe is obscured by overlying bowel gas. The remaining liver appears unremarkable. No hepatic masses identified. The main portal vein is patent. Gallbladder: The gallbladder is partially filled with sludge. There is borderline thickening of the gallbladder wall to 3 mm. No gallstones identified. Negative sonographic Mercado sign. CBD: 3 mm. There is a 5 mm echogenic focus within the common bile duct which may represent a stone. Right kidney: No hydronephrosis. IMPRESSION: 1. The common bile duct is borderline distended up to 8 mm and contains a 5 mm echogenic focus which is concerning for choledocholithiasis. 2. Mildly distended gallbladder containing sludge and a borderline thickened wall. However, negative sonographic Mercado sign. 3. The pancreas was obscured by overlying bowel gas. ACT 112: Negative or not required by law. Electronically signed by: Mega Kovacs M.D. 07/22/2022 8:12 AM PG Care Time/CCT Total # of Minutes Spent Total Time Spent with Patient: Total time spent is greater than 50% in coordination of care (as documented) at patient's floor/unit and/or counseling patient: Coding Level of Care Code 10329 INT INP/OBS CARE 3/75MIN Diagnoses Choledocholithiasis K80.50
[2022-07-22] MEDS: ERYTHROMYCIN OP OINT 5 MG/GM 3.5 GM TUBE OP SCH (20:03)
--- NOTE | 2022-07-22 22:47 | Hospitalist Progress Note ---
Date of Service July 22, 2022 Assessment & Plan (1) Severe sepsis: Plan: Suspected Patient presented with leukocytosis, lactic acidosis, altered mental status, hypotension, etc. Leading cause of his presentation was an infectious etiology - UTI? Other? Was given appropriate IVF resuscitation, antibiotics, etc. His lactic acidosis resolved. I checked a procalcitonin level and it is mildly high. CRP is markedly elevated. Although u/a was suspicious for UTI his urine culture has already resulted as negative. Thus far his blood cx's are negative. He has b/l conjunctivitis on exam suggesting a viral etiology but Respiratory BioFire is fully negative. CT chest/abd/pelvis without obvious source of infection. He has findings on CT chest concerning for PF but no pneumonia. Patient had hypotension this am and additional LR fluid bolus was given followed by increase in his basal fluid rate to 100cc/hr. Thus far etiology for his presentation is uncertain. False negative urine cx? Biliary tract disease? (has very tender upper abdomen on exam, although gastritis seen on CT may account for his pain) Tick-borne illness? Other? Check RUQ u/s - r/o acute cholecystitis. Consider lyme/anaplasmosis testing. Follow blood cultures. Consider PSA and if level is markedly elevated he could have prostatitis. Urine cx is often negative in setting of prostatitis. Continue zosyn. Defer on MRSA coverage for now. Source appears to be gallbladder. NPO after midnight, plan for ERCP and possible cholecystectomy. Check a random cortisol level. (2) Acute metabolic encephalopathy: Plan: ammonia, VBG wnl this am. CT head without acute CVA or ICH. Leading cause of altered mental status is #1 above. If not infectious -- subacute stroke? thiamine deficiency with Wernicke's given his chronic etoh use? Other cause? Certainly he is at risk of stroke given his chronic a.fib and if he was noncompliant with Eliquis. Continue supportive care. Consider MRI brain if mental status does not improve. Consider B1 level and treating with empiric thiamine while awaiting level. Check a B12 level. TSH was wnl in 11/2021. (3) Rhabdomyolysis: Plan: 2nd to fall. Cont isotonic fluids. Repeat CPK in am. Elevated AST on LFTs likely due to high CPK. (4) Gastritis: Plan: CT a/p with findings concerning for gastritis. He is tender in the high abdomen which could be 2nd to gastritis. He drinks etoh nightly thus he could have gastritis from such. Place on IV PPI twice daily. His friend reports that he has had weight loss and poor appetite for some time. Indeed records show at least 20# of weight loss since July 2021. Gastric cancer?? need to get him through this illness first and consider GI consultation for EGD at some point when more stable. (5) Status cardiac pacemaker: Plan: Obtain pacer interrogation - r/o dysrhythmia as cause of fall vs syncopal episode vs other (6) Hypertension: Plan: Now with hypotension 2nd to #1. HOLD coreg. HOLD lisinopril. (7) BPH with obstruction/lower urinary tract symptoms: Plan: Certainly a risk factor for UTI/prostatitis. Sorto in place. IV abx have been given. (8) Conjunctivitis: Plan: b/l Respiratory BioFire panel negative Order erythromycin eye ointment at HS (9) Facial trauma: Plan: 2nd to fall fortunately no fractures on extensive imaging of head/face/c-spine (10) Weight loss: Plan: 20 # based on records over the last 12 months highly concerning in light of worsening appetite patient has had memory loss - could have early dementia and weight loss could be due to such alternatively could have malignancy would be concerned about "gastritis" seen on CT a/p - is this a gastric malignancy? again - focus on acute illness and address the weight loss following his recovery (11) Memory loss: Plan: based on his friend's description he has, at minimum, mild cognitive impairment. cannot rule out early dementia. check B12 level. check B1 level. TSH fall 2021 was wnl. given his progressive memory loss he will be at higher risk of delirium in the setting of illness. (12) Folate deficiency: Plan: h/o such. repeat level and Rx if necessary. (13) Permanent atrial fibrillation: Plan: per records he has chronic a.fib. he is being paced on monitor. hold Eliquis in light of his injuries, facial trauma, etc. (14) History of cardiomyopathy: Plan: 2nd to pacemaker? (pt ventricularly paces) other? per cardiology notes he has been Rx with BB & DARYL with improved EF. EF on last echo 50-55% with mild RV dysfunction. caution with IV fluids. due to hypotension HOLD BB; HOLD DARYL he does NOT examine in decompensated CHF (15) Anticoagulant long-term use: Plan: Eliquis, for chronic a.fib hold Eliquis in the setting of significant trauma Plan DVT proph - hold chemical means at least until tomorrow if H/H remain stable, no signs of bleeding, etc - then consider resuming Eliquis Admission and Anticipated Discharge Date Admission Date: July 21, 2022 Subjective 87 yo male resting comfortably. Review of Systems Review of Systems: All systems reviewed & are unremarkable except as noted in HPI & below Physical Exam Physical Exam: gen - altered, very difficult to understand his speech; even with speaking his word / sentence structure is altered face - ecchymoses on R ear, R orbital and R cheek eyes - orbital ecchymoses on R; PERRL; mouth - MM very dry neck - no JVD heart - RRR, s1 s2, no obvious murmur lungs - scant rales bases, otherwise CTA b/l abd - tender high epigastric area, BS+, no HSM, ND, soft ext - no edema, pulses 2+ b/l skin - b/l knee bruises Results & Data Results & Data Vital Signs (Past 12 Hours) Vital Signs Temp Pulse Pulse Resp BP Pulse Ox O2 Del Method 07/22/22 19:00 36.5 C 81 18 142/85 H 95 Room Air 07/22/22 15:56 37 C 77 18 121/76 95 Room Air 07/22/22 14:57 65 07/22/22 11:48 36.6 C 82 18 126/76 93 Room Air PG Care Time/CCT Total # of Minutes Spent Total Time Spent with Patient: Total time spent is greater than 50% in coordination of care (as documented) at patient's floor/unit and/or counseling patient: Coding Level of Care Code 91443 SUB INP/OBS CARE 2/35MIN Diagnoses Severe sepsis A41.9; R65.20 Acute metabolic encephalopathy G93.41 Rhabdomyolysis M62.82 Gastritis K29.70 Status cardiac pacemaker Z95.0 Hypertension I10 Hypertension type: essential hypertension BPH with obstruction/lower urinary tract symptoms N40.1; N13.8 Conjunctivitis H10.9 Facial trauma S09.93XA Weight loss R63.4 Memory loss R41.3 Folate deficiency E53.8 Permanent atrial fibrillation I48.21 History of cardiomyopathy Z86.79 Anticoagulant long-term use Z79.01 (6) Hypertension Hypertension type: essential hypertension Qualified Code(s): I10 - Essential (primary) hypertension
[2022-07-23] MEDS: LACTATED RINGER'S 1,000 ML IV SCH ×2 (00:22→10:14)
[2022-07-23] MEDS: THIAMINE HCL 500 MG in SODIUM CHLORIDE 0.9% 50 ML IV SCH ×2 (05:37→15:28)
[2022-07-23] MEDS: PIPERACILLIN/TAZOBACTAM 4.5 GM in DEXTROSE 5% 100 ML IV SCH ×3 (05:40→21:48)
[2022-07-23 06:57] LABS: Hematocrit (blood only) 36.6 % (42.0-52.0); Hemoglobin 12.5 g/dl (14.0-18.0); Mean Corpuscular Hemoglobin 31.1 pg (25.0-34.0); Mean Corpuscular Hgb Conc 34.2 g/dL (32.0-36.0); Mean Platelet Volume 10.3 fL (9.4-12.4); Platelet Count 192 K/uL (130-400); RDW Coefficient of Variation 14.4 % (11.5-14.5); Red Blood Count 4.02 M/uL (4.70-6.10); White Blood Count 8.58 K/ul (4.8-10.8)
[2022-07-23 07:22] LABS: BUN Creatinine Ratio 32.1 (10-20); C Reactive Protein 5.7 mg/dl (0-0.5); Calcium 8.6 mg/dl (8.6-10.3); Creatinine Clr Calc Pharmacy 62.8 ml/min; Est GFR (African American) 90.6 ml/min; Est GFR (Non-African American) 78.2 ml/min; Potassium 3.3 mmol/L (3.5-5.1)
[2022-07-23] MEDS: PANTOprazole 40 MG in SYRINGE 0 ML IV SCH (07:53)
--- NOTE | 2022-07-23 08:35 | Surgery Progress Note ---
Date of Service July 23, 2022 Assessment & Plan (1) Choledocholithiasis: Plan: Plan to have ERCP today. If they do in fact find biliary sludge or stones we should at least consider laparoscopic cholecystectomy while he is off of his anticoagulation. Ultrasound did show sludge as well as borderline thickened gallbladder wall. This could be the etiology but there are other potential etiologies as well. We discussed the procedure in detail of laparoscopic cholec ystectomy. I want to wait and see what they find on the ER CP today for making definite recommendations. He understands. We will discuss with him later today or tomorrow morning (2) Permanent atrial fibrillation: (3) Elevated lactic acid level: (4) Fall: (5) Rhabdomyolysis: (6) Acute metabolic encephalopathy: (7) Folate deficiency: Admission and Anticipated Discharge Date Admission Date: July 21, 2022 Subjective Patient seen with his nurse. She also had them yesterday and states that he is much clearer today more alert and oriented. He is currently denying any abdominal pain or nausea. Physical Exam Constitutional: WD/WN, vitals as above no acute distress and not ill appearing Eyes: PERRL, conjunctivae normal, anicteric sclerae EOM intact bilaterally ENMT: external ear and nose normal, oropharynx normal Ears: no hearing impairment Neck: trachea midline, no thyromegaly Respiratory: normal respiratory effort; no respiratory distress and does not use accessory muscles Cardiovascular: Rate/Rhythm: regular rate and regular rhythm Gastrointestinal (Abdomen): normal bowel sounds, soft, nontender, no hepatosplenomegaly Skin: no rashes, warm and dry Psychiatric: Orientation: alert, oriented x 3 and cooperative Results & Data Vital Signs (Past 12 Hours) Vital Signs Temp Pulse Pulse Resp BP BP Pulse Ox 07/23/22 08:31 36.4 C L 72 16 150/89 H 97 07/23/22 07:45 73 07/23/22 03:49 36.4 C L 72 18 122/82 96 07/22/22 22:00 67 07/23/22 00:00 36.6 C 89 18 142/82 H 95 O2 Del Method 07/23/22 08:31 Room Air 07/23/22 07:45 07/23/22 03:49 Room Air 07/22/22 22:00 07/23/22 00:00 Room Air PG Care Time/CCT Total # of Minutes Spent Total Time Spent with Patient: Total time spent is greater than 50% in coordination of care (as documented) at patient's floor/unit and/or counseling patient: Coding Level of Care Code 54401 SUB INP/OBS CARE Diagnoses Choledocholithiasis K80.50 Permanent atrial fibrillation I48.21 Elevated lactic acid level R79.89 Fall W19.XXXA Encounter type: initial encounter Rhabdomyolysis M62.82 Acute metabolic encephalopathy G93.41 Folate deficiency E53.8 (4) Fall Encounter type: initial encounter Qualified Code(s): W19.XXXA - Unspecified fall, initial encounter
--- NOTE | 2022-07-23 13:11 | Anesthesiology Consultation ---
Date of Service July 23, 2022 Assessment & Plan (1) Encounter for pre-operative examination: Chart Review Chart Review: Acceptable Risk for Surgery and Patient NOT seen in Pre Admission Testing Consults Requested none History Surgery Operation Date: 07/23/22 07:00 Proposed Procedures p Endoscopic Retrograde Cholangiopancreato - Nara Rendon, Height/Weight Height: 5 ft 10 in Weight: 78.3 kg Allergies Allergy/AdvReac Type Severity Reaction Status Date / Time ciprofloxacin Allergy Intermediate Rash Verified 07/20/22 23:37 Quinolones Allergy Intermediate CIPRO-RASH Verified 07/20/22 23:37 Medications Home Medications Medication Instructions Recorded Confirmed Last Taken clobetasol-emollient 0.05 % 1 appln topical BID PRN flare up 11/15/19 07/20/22 Unknown topical cream #1 g cholecalciferol (vitamin D3) 50 50 mcg PO DAILY #30 caps 05/29/20 07/20/22 12/28/21 mcg (2,000 unit) capsule carvedilol 25 mg tablet 25 mg PO BID #180 tabs 07/05/21 07/20/22 12/28/21 08:00 cyanocobalamin (vitamin B-12) 1,000 mcg PO DAILY #30 tabs 01/03/22 07/20/22 Unknown 1,000 mcg tablet lisinopril 5 mg tablet 5 mg PO DAILY #100 tabs 02/10/22 07/20/22 Unknown apixaban 5 mg tablet (Eliquis) 5 mg PO BID #180 tabs 02/11/22 07/20/22 Unknown folic acid 1 mg tablet 1 mg PO DAILY #90 tabs 02/19/22 07/20/22 Unknown Active Medications Generic Name Dose Route Start Last Admin Trade Name Freq PRN Reason Stop Dose Admin Acetaminophen 650 mg 07/21/22 02:13 07/21/22 12:15 Acetaminophen 325 Mg Tab PO 08/20/22 02:12 650 mg Q4H PRN Administration Pain or Fever Erythromycin 1 appln 07/21/22 21:00 07/22/22 20:03 Erythromycin Op Oint 5 Mg/Gm 3.5 Gm Tube OP 07/31/22 20:59 1 appln HS KAMILA Administration Piperacillin Sod/Tazobactam 120 mls @ 30 mls/hr 07/21/22 05:00 07/23/22 13:01 Sod 4.5 gm/ Dextrose IV 07/31/22 04:44 30 mls/hr Q8H KAMILA Administration Protocol Lactated Ringer's 1,000 mls @ 100 mls/hr 07/21/22 08:15 07/23/22 10:14 Lr IV 08/20/22 08:14 100 mls/hr .Q10H KAMILA Administration Pantoprazole Sodium 40 mg/ 10 mls @ 5 mls/min 07/21/22 12:00 07/23/22 07:53 Syringe IV 08/20/22 11:59 5 mls/min BID KAMILA Administration Thiamine HCl 500 mg/ Sodium 55 mls @ 210 mls/hr 07/21/22 21:15 07/23/22 06:06 Chloride IV 08/20/22 21:14 Infused Q8H KAMILA Infusion NPO Date Last Intake of Fluids: 07/22/22 Time Last Intake of Fluids: 23:59 Date Last Intake of Solids: 07/22/22 Time Last Intake of Solids: 23:59 Past Medical History Medical History (Updated 07/23/22 @ 13:07 by Wilfrido Godoy MD) Atrial fibrillation Cardiomyopathy Encounter for pre-operative examination Hypertension Impaired fasting glucose Memory loss Third degree heart block (1) Severe sepsis: Plan: Suspected Patient presented with leukocytosis, lactic acidosis, altered mental status, hypotension, etc. Although u/a was suspicious for UTI his urine culture has already resulted as negative. Thus far his blood cx's are negative. He has b/l conjunctivitis on exam suggesting a viral etiology but Respiratory BioFire is fully negative. CT chest/abd/pelvis without obvious source of infection. He has findings on CT chest concerning for PF but no pneumonia. Source appears to be gallbladder. NPO after midnight, plan for ERCP and possible cholecystectomy. (2) Acute metabolic encephalopathy: (3) Rhabdomyolysis: Plan: 2nd to fall. Past Family History Family History Father Old age Mother Old age Grandfather (Maternal) Myocardial infarction Other No significant family history Denies family history of Ovarian cancer Prostate cancer Breast cancer Lung cancer Colorectal cancer Stroke Past Surgical History Surgical History History of colonoscopy History of laparoscopy history of pyelotomy with lithotomy History of pacemaker Social History Smoking Status: Never smoker Do You Dip or Chew Tobacco: No Hx Alcohol Use: Yes Alcohol type: beer alcohol intake frequency: a few times a week Hx Substance Use: No Physical Exam Vital Signs Last Vital Signs Temp 36.5 C 07/23/22 12:56 Pulse 86 07/23/22 12:56 Resp 20 07/23/22 12:56 BP 156/98 H 07/23/22 12:56 Pulse Ox 98 07/23/22 12:56 O2 Del Method Room Air 07/23/22 12:56 Testing Laboratory Results 07/23/22 06:37 07/23/22 06:37 PT 13.2 Seconds (9.0-12.0) H 07/20/22 20:20 INR 1.2 (0.9-1.1) H 07/20/22 20:20 Urine Color [place] 07/20/22 22:18 Urine Appearance Turbid (Clear) A 07/20/22 22:18 Urine pH 5.0 (4.5-7.5) 07/20/22 22:18 Ur Specific [place] 1.026 (1.000-1.030) 07/20/22 22:18 Urine Protein 2+ (Negative) H 07/20/22 22:18 Urine Glucose (UA) Negative (Negative) 07/20/22 22:18 Urine Ketones Negative (Negative) 07/20/22 22:18 Urine Nitrite Positive (Negative) A 07/20/22 22:18 Ur Leukocyte Esterase 1+ (Negative) H 07/20/22 22:18 Urine WBC (Auto) 10-30 /hpf (0-5) H 07/20/22 22:18 Urine RBC (Auto) >30 /hpf (0-4) H 07/20/22 22:18 U Hyaline Cast (Auto) 1-5 /lpf (0-5) 07/20/22 22:18 U Epithel Cells (Auto) 10-20 /lpf (0-5) H 07/20/22 22:18 Urine Bacteria (Auto) Negative (Negative) 07/20/22 22:18 07/20/22 22:45 Aerobic Blood Culture - Preliminary Blood No growth in Aerobic bottle after 48 hours. Anaerobic Blood Culture - Preliminary No growth in Anaerobic bottle after 48 hours. 07/20/22 20:35 Aerobic Blood Culture - Preliminary Blood No growth in Aerobic bottle after 48 hours. 07/20/22 22:18 Urine Culture - Final Urine,Straight Cath No growth - less than 1,000 colonies/mL. Electrocardiogram Date: 07/20/22 Findings: + NSR @ (93) Poor data quality, interpretation may be adversely affected Ventricular- paced rhythm Abnormal ECG When compared with ECG of 18-MAY-2022 16:26, Vent. rate has increased BY 9 BPM Confirmed by Colt Apple ([id number]) on 07/22/2022 10:52:27 AM Echocardiogram Date: 10/08/21 LV systolic function is normal Moderate LVH LA mildly dilated Mild MR EF 50-55%
[2022-07-23] MEDS ORDERED: fentaNYL citrate PF 100 MCG/2 ML VIAL ONE (13:16)
--- NOTE | 2022-07-23 13:30 | History & Physical Bridge Note ---
Date of Service July 23, 2022 History & Physical Bridge Note I have examined the patient, reviewed the History & Physical and in the interval since the performance of the History & Physical I have noted the following changes of clinical significance: no changes noted. I was able to call the patient's sister to discuss ERCP and its risks to include bleeding, infection, perforation, pain, pancreatitis and failed biliary cannulation. We also discussed the increased of risk of complications given the age and co- morbidities of the patient. Ultrasound results: ABDOMINAL ULTRASOUND, RIGHT UPPER QUADRANT HISTORY: upper abd pain, possible sepsis, r/o cholecystitis. COMPARISON: Abdomen and pelvis CT 07/20/2022. FINDINGS: Pancreas: Obscured by overlying bowel gas. Liver: The left hepatic lobe is obscured by overlying bowel gas. The remaining liver appears unremarkable. No hepatic masses identified. The main portal vein is patent. Gallbladder: The gallbladder is partially filled with sludge. There is borderline thickening of the gallbladder wall to 3 mm. No gallstones identified. Negative sonographic Mercado sign. CBD: 3 mm. There is a 5 mm echogenic focus within the common bile duct which may represent a stone. Right kidney: No hydronephrosis. IMPRESSION: 1. The common bile duct is borderline distended up to 8 mm and contains a 5 mm echogenic focus which is concerning for choledocholithiasis. 2. Mildly distended gallbladder containing sludge and a borderline thickened wall. However, negative sonographic Mercado sign. 3. The pancreas was obscured by overlying bowel gas.
[2022-07-23] MEDS ORDERED: PROPOFOL IV EMULSION 10 MG/ML 20 ML VIAL IV ONE (13:55)
[2022-07-23] MEDS ORDERED: SUCCINYLCHOLINE CHLORIDE 20 MG/ML 10 ML VIAL IV ONE (13:55)
[2022-07-23] MEDS ORDERED: ONDANSETRON INJ 2 MG/ML 2 ML VIAL ONE (13:55)
[2022-07-23] MEDS ORDERED: LIDOCAINE 2% 2 ML VIAL/AMP(20MG/ML) INFIL ONE (13:55)
--- NOTE | 2022-07-23 14:25 | GI REPORT ---
Patient Name: Moshe Andrews Procedure Date: 07/23/2022 1:41 PM Date of : 1935 Admit Type: Inpatient Age: 87 Gender: Male Attending MD: Nara Rendon DO, Procedure: ERCP Providers: Nara Rendon DO Referring MD: Almaz Del Rio Md, Sudarshan Hernandez Indications: Abdominal pain of suspected biliary origin, Bile duct stone on Ultrasound Medicines: General Anesthesia Complications: No immediate complications. Estimated blood loss: Minimal. Estimated Blood Loss: Estimated blood loss was minimal. Procedure: Pre-Anesthesia Assessment: - Prior to the procedure, a History and Physical was performed, and patient medications, allergies and sensitivities were reviewed. The patient's tolerance of previous anesthesia was reviewed. - The risks and benefits of the procedure and the sedation options and risks were discussed with the patient. All questions were answered and informed consent was obtained. - Patient identification and proposed procedure were verified prior to the procedure by the physician, the nurse and the blue split trimmer. The procedure was verified in the procedure room. - Pre-procedure physical examination revealed no contraindications to sedation. - ASA Grade Assessment: IV - A patient with severe systemic disease that is a constant threat to life. - After reviewing the risks and benefits, the patient was deemed in satisfactory condition to undergo the procedure. - The anesthesia plan was to use general anesthesia. - Immediately prior to administration of medications, the patient was re-assessed for adequacy to receive sedatives. - The heart rate, respiratory rate, oxygen saturations, blood pressure, adequacy of pulmonary ventilation, and response to care were monitored throughout the procedure. - The physical status of the patient was re-assessed after the procedure. After obtaining informed consent, the scope was passed under direct vision. Throughout the procedure, the patient's blood pressure, pulse, and oxygen saturations were monitored continuously. The Duodenoscope was introduced through the mouth, and advanced to the duodenum and used to inject contrast into the bile duct. The ERCP was accomplished without difficulty. The patient tolerated the procedure well. Findings: The software deployment engineer film was normal. The esophagus was successfully intubated under direct vision without detailed examination of the pharynx, larynx, and associated structures, and upper GI tract. The upper GI tract was grossly normal. The major papilla was normal. The bile duct was deeply cannulated with the short-nosed traction sphincterotome and guidewire (PD not injected or cannulated today). Contrast was injected. I personally interpreted the bile duct images. Contrast extended to the entire biliary tree. The main bile duct was moderately dilated, with a stone causing an obstruction. The largest diameter was 10 mm. The cystic duct was patent, filling defects were noted in the gallbladder consistent with gallstones. Biliary sphincterotomy was made with a Fusion OMNI sphincterotome using ERBE electrocautery. There was no post-sphincterotomy bleeding. To discover objects, the biliary tree was swept with a 15 mm balloon starting at the bifurcation. Sludge was swept from the duct. One 10 Fr by 9 cm biliary stent with a single external flap and a single internal flap was placed 9 cm into the common bile duct. Bile flowed through the stent. The stent was in good position. The endoscope was withdrawn from the patient. Impression: - The major papilla appeared normal. - The entire main bile duct was moderately dilated, with a stone causing an obstruction. - A biliary sphincterotomy was performed. - The biliary tree was swept and sludge was found. - One biliary stent was placed into the common bile duct. Recommendation: - Avoid aspirin and nonsteroidal anti-inflammatory medicines for 1 week. - Clear liquid diet. - Repeat ERCP in 6 weeks to remove stent. - Cholecystectomy per General Surgery Nara Rendon D.O. Nara Rendon, 07/23/2022 2:24:44 PM This report has been signed electronically. Note Initiated On: 07/23/2022 1:41 PM Number of Addenda: 0 I attest to the content of the Intraoperative Record and orders documented therein, exceptions below {[id number]}
--- NOTE | 2022-07-23 14:32 | Communication Note ---
Date of Service: July 23, 2022 The patient underwent ERCP this afternoon notable for stone in the distal CBD, this was removed with a sphincterotomy and balloon extraction. A biliary stent was also placed. Recomendations: Avoid nsaids for 1 week if possible ABX coverage for 2 weeks Cholecystectomy per General Surgery Repeat ERCP in 6 to 8 weeks for stent removal
--- NOTE | 2022-07-23 14:38 | Post Operative Brief Note ---
Immediate Post Op Note v1 Date of Surgery July 23, 2022 Pre & Post Diagnosis Operation Date: 07/23/22 07:00 Pre-Op Diagnosis: SYNCOPE Post-Op Diagnosis:bile duct sludge/stone I identified the patient and participated in the time-out.: Yes Procedure Operation Date: 07/23/22 07:00 Actual Procedures p Endoscopic Retrograde Cholangiopancreato - Nara Rendon DO Surgeon Nara Rendon DO Defensive Secondary Coach none Estimated Blood Loss 0 Findings Consistent with Post-Op Diagnosis
--- NOTE | 2022-07-23 14:38 | Anesthesiology Progress Note ---
Date of Service July 23, 2022 Anesthesia Post Procedure Vital Signs Vital Signs: Temp Pulse Pulse Pulse Resp BP BP 07/23/22 12:56 36.5 C 86 20 156/98 H 07/23/22 11:30 36.6 C 75 16 149/76 H 07/23/22 09:39 07/23/22 08:31 36.4 C L 72 16 150/89 H 07/23/22 07:45 73 07/23/22 03:49 36.4 C L 72 18 122/82 07/22/22 22:00 67 07/23/22 00:00 36.6 C 89 18 142/82 H 07/22/22 20:00 07/22/22 19:00 36.5 C 81 18 142/85 H 07/22/22 15:56 37 C 77 18 121/76 07/22/22 14:57 65 Pulse Ox O2 Del Method 07/23/22 12:56 98 Room Air 07/23/22 11:30 95 Room Air 07/23/22 09:39 Room Air 07/23/22 08:31 97 Room Air 07/23/22 07:45 07/23/22 03:49 96 Room Air 07/22/22 22:00 07/23/22 00:00 95 Room Air 07/22/22 20:00 Room Air 07/22/22 19:00 95 Room Air 07/22/22 15:56 95 Room Air 07/22/22 14:57 Transfer of Care Handoff Completed per policy Notes Mental Status: alert / awake / arousable and participated in evaluation Patient Amnestic to Procedure: Yes Nausea / Vomiting: adequately controlled Pain: adequately controlled Airway Patency, RR, SpO2: stable & adequate BP & HR: stable & adequate Hydration State: stable & adequate Anesthetic Complications: no major complications apparent
--- NOTE | 2022-07-23 16:26 | Fluoroscopy Report ---
[place] ERCP biliary ductal CLINICAL HISTORY: Duct exploration. Right upper quadrant pain. Possible choledocholithiasis. COMPARISON STUDY: Abdominal ultrasound 07/22/2022. FLUOROSCOPY TIME: 17 seconds FLUOROSCOPY IMAGES: 8 EXPOSURE DOSE: 2.5 FINDINGS: The ampulla was cannulated and contrast was injected into the common bile duct. A balloon s weep was performed. IMPRESSION: Fluoroscopic assistance as above. ACT 112: Negative or not required by law. Electronically signed by: Mega Kovacs M.D. 07/23/2022 4:25 PM
--- NOTE | 2022-07-23 17:20 | Hospitalist Progress Note ---
Date of Service July 23, 2022 Assessment & Plan (1) Severe sepsis: Plan: Patient presented with leukocytosis, lactic acidosis, altered mental status, hypotension Etiology initially unknown but later found to have choledocholithiasis and acute taylor after having RUQ abd tenderness on exam Was given appropriate IVF resuscitation, antibiotics and his lactic acidosis and hypotension resolved. procalcitonin level mildly high. CRP is markedly elevated and now coming down Although u/a was suspicious for UTI his urine culture has already resulted as negative. Thus far his blood cx's are negative. He has b/l conjunctivitis on exam suggesting a viral etiology but Respiratory BioFire is fully negative. CT chest/abd/pelvis without obvious source of infection. He has findings on CT chest concerning for PF but no pneumonia. S/P ERCP with removal of CBD stone and with biliary stent placement on 07/23- appreciate GI management -needs lap taylor-appreciate Surgery consult -can have clears now and then NPO after midnight for taylor -Continue zosyn. (2) Choledocholithiasis: Plan: As above Avoid nsaids for 1 week if possible ABX coverage for 2 weeks Cholecystectomy per General Surgery Repeat ERCP in 6 to 8 weeks for stent removal (3) Acute metabolic encephalopathy: Plan: ammonia, VBG wnl CT head without acute CVA or ICH. Leading cause of altered mental status is sepsis--> now improving with treatment of GB Was given high dose IV thiamine 500mg tid x 2 days-> B1 level pending--> reduce to 100mg IV daily Thiamine deficiency with Wernicke's possible given his chronic etoh use? Other cause? B12 level normal TSH was wnl in 11/2021 (4) Rhabdomyolysis: Plan: to fall. CK coming down Elevated AST on LFTs likely due to high CPK. dc IVFs, drinking fluids follow CK in AM, LFTs in am (5) Gastritis: Plan: CT a/p with findings concerning for gastritis. He drinks etoh nightly thus he could have gastritis from such. continue IV PPI twice daily. His friend reports that he has had weight loss and poor appetite for some time. Indeed records show at least 20# of weight loss since July 2021. Gastric cancer?? None mentioned on ERCP (6) Status cardiac pacemaker: Plan: Obtain pacer interrogation - r/o dysrhythmia as cause of fall vs syncopal episode vs other no events on tele thus far (7) Hypertension: Plan: with hypotension on admission now resolved continue to HOLD coreg and lisinopril restart COreg at lower dose given upcoming surgery and known benefit to continuing beta blockers in perioperative period (8) BPH with obstruction/lower urinary tract symptoms: Plan: Sorto in place. (9) Conjunctivitis: Plan: b/l Respiratory BioFire panel negative continue erythromycin eye ointment at HS (10) Facial trauma: Plan: 2nd to fall fortunately no fractures on extensive imaging of head/face/c-spine (11) Weight loss: Plan: 20 # based on records over the last 12 months highly concerning in light of worsening appetite patient has had memory loss - could have early dementia and weight loss could be due to such alternatively could have malignancy would be concerned about "gastritis" seen on CT a/p - is this a gastric malignancy? None seen grossly on ERCP again - focus on acute illness and address the weight loss following his recovery (12) Memory loss: Plan: based on his friend's description he has, at minimum, mild cognitive impairment. cannot rule out early dementia. B12 level normal check B1 level. TSH fall 2021 was wnl. given his progressive memory loss he will be at higher risk of delirium in the setting of illness. 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 repeat level normal (14) Permanent atrial fibrillation: Plan: per records he has chronic a.fib. he is being paced on monitor. hold Eliquis in light of his injuries, facial trauma, etc. (15) History of cardiomyopathy: Plan: 2nd to pacemaker? (pt ventricularly paces) other? per cardiology notes he has been Rx with BB & DARYL with improved EF. EF on last echo 50-55% with mild RV dysfunction. caution with IV fluids-dc them today while taking clear liquids after ERCP due to hypotension HOLD BB; HOLD DARYL but restarting Coreg now he does NOT examine in decompensated CHF (16) Anticoagulant long-term use: Plan: Eliquis, for chronic a.fib hold Eliquis in the setting of significant trauma Plan DVT proph - hold chemical means for surgery Dispo-continued stay on tele Admission and Anticipated Discharge Date Admission Date: July 21, 2022 Subjective Feeling very weak. Denies abd pain. Is feeling very thirsty after return from ERCP. CBD stone removed and stent placed. Tele with paced rhtyhm, rates in the 60s Physical Exam Constitutional: WD/WN, vitals as above Respiratory: normal respiratory effort, lungs clear to auscultation Cardiovascular: RRR, no murmur, no edema Gastrointestinal (Abdomen): normal bowel sounds, soft, nontender, no hepatosplenomegaly Psychiatric: Orientation: alert, oriented to person, oriented to place and cooperative; + not oriented to time Genitourinary: Sorto in place with dark yellow urine Results & Data Results & Data Vital Signs (Past 12 Hours) Vital Signs Temp Pulse Pulse Pulse Resp BP BP 07/23/22 16:42 36.7 C 62 19 133/81 07/23/22 15:34 36.7 C 59 L 18 142/85 H 07/23/22 15:19 36.7 C 61 18 135/78 07/23/22 15:00 36.5 C 61 19 134/76 07/23/22 14:50 61 20 130/73 07/23/22 14:40 61 19 136/78 07/23/22 14:30 61 18 141/72 H 07/23/22 14:25 36.2 C L 64 16 142/77 H 07/23/22 12:56 36.5 C 86 20 156/98 H 07/23/22 11:30 36.6 C 75 16 149/76 H 07/23/22 09:39 07/23/22 08:31 36.4 C L 72 16 150/89 H 07/23/22 07:45 73 Pulse Ox O2 Del Method O2 Flow Rate 07/23/22 16:42 92 Room Air 07/23/22 15:34 93 Room Air 07/23/22 15:19 95 Room Air 07/23/22 15:00 96 Room Air 07/23/22 14:50 95 Room Air 07/23/22 14:40 98 Oxymask 5 07/23/22 14:30 100 Oxymask 12 07/23/22 14:25 99 Oxymask 12 07/23/22 12:56 98 Room Air 07/23/22 11:30 95 Room Air 07/23/22 09:39 Room Air 07/23/22 08:31 97 Room Air 07/23/22 07:45 Laboratory Results CBC, CMP, CRP, Cortisol, B12, folate reviewed PG Care Time/CCT Total # of Minutes Spent Total Time Spent with Patient: Total time spent is greater than 50% in coordination of care (as documented) at patient's floor/unit and/or counseling patient: Coding Level of Care Code 90442 SUB INP/OBS CARE 3/50MIN Diagnoses Severe sepsis A41.9; R65.20 Choledocholithiasis K80.50 Acute metabolic encephalopathy G93.41 Rhabdomyolysis M62.82 Gastritis K29.70 Status cardiac pacemaker Z95.0 Hypertension I10 Hypertension type: essential hypertension BPH with obstruction/lower urinary tract symptoms N40.1; N13.8 Conjunctivitis H10.9 Facial trauma S09.93XA Weight loss R63.4 Memory loss R41.3 Folate deficiency E53.8 Permanent atrial fibrillation I48.21 History of cardiomyopathy Z86.79 Anticoagulant long-term use Z79.01 (7) Hypertension Hypertension type: essential hypertension Qualified Code(s): I10 - Essential (primary) hypertension
[2022-07-23] MEDS ORDERED: POTASSIUM CHLORIDE CRTAB 20 MEQ TABCR PO STA (17:21)
[2022-07-23] MEDS: carvediloL 6.25 MG TAB PO SCH (21:49)
[2022-07-23] MEDS: ERYTHROMYCIN OP OINT 5 MG/GM 3.5 GM TUBE OP SCH (21:49)
[2022-07-24] MEDS: PIPERACILLIN/TAZOBACTAM 4.5 GM in DEXTROSE 5% 100 ML IV SCH ×3 (05:38→22:06)
[2022-07-24 07:16] LABS: Basophils # (auto) 0.04 K/uL (0-0.2); Basophils % (auto) 0.5 %; Eosinophils # (auto) 0.33 K/uL (0-0.50); Eosinophils % (auto) 3.8 %; Hematocrit (blood only) 37.1 % (42.0-52.0); Hemoglobin 12.6 g/dl (14.0-18.0); Immature Granulocytes # (auto) 0.03 K/uL (0.01-0.20); Immature Granulocytes % (auto) 0.3 %; Lymphocytes # (auto) 1.67 K/uL (1.2-3.4); Lymphocytes % (auto) 19.3 %; Mean Corpuscular Volume 91.2 fL (80.0-100.0); Mean Platelet Volume 10.7 fL (9.4-12.4); Monocytes # (auto) 0.86 K/uL (0.11-0.59); Neutrophils # (auto) 5.71 K/uL (1.40-6.50); Neutrophils % (auto) 66.1 %; Platelet Count 200 K/uL (130-400); RDW Coefficient of Variation 14.6 % (11.5-14.5); RDW Standard Deviation 48.7 fL (36.4-46.3); Red Blood Count 4.07 M/uL (4.70-6.10); White Blood Count 8.64 K/ul (4.8-10.8)
[2022-07-24 07:36] LABS: Albumin Globulin Ratio 0.9 (0.9-2); Albumin Level 2.8 gm/dl (3.4-5.0); BUN Creatinine Ratio 26.6 (10-20); Bilirubin,Total 1.1 mg/dl (0.2-1.0); C Reactive Protein 4.54 mg/dl (0-0.5); Calcium 8.4 mg/dl (8.6-10.3); Creatinine Clr Calc Pharmacy 66.7 ml/min; Est GFR (African American) 92.9 ml/min; Est GFR (Non-African American) 80.2 ml/min; Magnesium 1.5 mg/dl (1.7-2.4); Potassium 3.6 mmol/L (3.5-5.1); Total Protein 5.8 gm/dl (6.0-8.3)
[2022-07-24] MEDS: PANTOprazole 40 MG in SYRINGE 0 ML IV SCH (07:55)
[2022-07-24] MEDS: carvediloL 6.25 MG TAB PO SCH ×2 (07:55→22:06)
[2022-07-24] MEDS: THIAMINE HCL 100 MG in SYRINGE 9 ML IV SCH (07:56)
[2022-07-24] MEDS ORDERED: THIAMINE HCL 100 MG in SODIUM CHLORIDE 0.9% 50 ML IV SCH (09:00)
--- NOTE | 2022-07-24 09:33 | Surgery Progress Note ---
Date of Service July 24, 2022 Assessment & Plan (1) Choledocholithiasis: Plan: We discussed the findings on ERCP yesterday. We discussed his options. I would recommend we perform cholecystectomy while he is n.p.o. and off his anticoagulation. We discussed risks which include bleeding infection bile duct injury or leaks injury to other organs DVT PE OR CVA etc. He is alert and oriented and asked appropriate questions and his nurse agrees. I offered to call his sister and he stated that would not be necessary. He is agreeing to the surgery and we will proceed later today with laparoscopic cholecystectomy. (2) Cholelithiasis: Admission and Anticipated Discharge Date Admission Date: July 21, 2022 Subjective Patient seen. He is alert and oriented today. He has no abdominal pain. He is hungry. Physical Exam Constitutional: WD/WN, vitals as above no acute distress and not ill appearing Eyes: PERRL, conjunctivae normal, anicteric sclerae EOM intact bilaterally ENMT: external ear and nose normal, oropharynx normal Ears: no hearing impairment Neck: trachea midline, no thyromegaly Respiratory: normal respiratory effort; no respiratory distress and does not use accessory muscles Cardiovascular: Rate/Rhythm: regular rate and regular rhythm Gastrointestinal (Abdomen): normal bowel sounds, soft, nontender, no hepatosplenomegaly Skin: no rashes, warm and dry Psychiatric: Orientation: alert, oriented x 3 and cooperative Results & Data Vital Signs (Past 12 Hours) Vital Signs Temp Pulse Pulse Resp BP Pulse Ox O2 Del Method 07/24/22 09:11 60 07/24/22 07:47 36.2 C L 61 18 126/74 95 Room Air 07/24/22 04:00 36.6 C 68 18 114/72 95 Room Air 07/23/22 22:08 66 07/23/22 23:20 36.6 C 69 18 137/85 94 Room Air PG Care Time/CCT Total # of Minutes Spent Total Time Spent with Patient: Total time spent is greater than 50% in coordination of care (as documented) at patient's floor/unit and/or counseling patient: Coding Level of Care Code 78147 SUB INP/OBS CARE 2/35MIN Diagnoses Choledocholithiasis K80.50 Cholelithiasis K80.20
[2022-07-24] MEDS: MAGNESIUM SULFATE / D5W 1 GM/100 ML BAG IV SCH ×2 (09:40→11:46)
--- NOTE | 2022-07-24 11:01 | Hospitalist Progress Note ---
Date of Service July 24, 2022 Assessment & Plan (1) Severe sepsis: Plan: Patient presented with leukocytosis, lactic acidosis, altered mental status, hypotension Etiology initially unknown but later found to have choledocholithiasis and acute taylor after having RUQ abd tenderness on exam Was given appropriate IVF resuscitation, antibiotics and his lactic acidosis and hypotension resolved. procalcitonin level mildly high. CRP is markedly elevated and now continues to rend downward Although u/a was suspicious for UTI his urine culture has already resulted as negative. Thus far his blood cx's remain negative. He has b/l conjunctivitis on exam suggesting a viral etiology but Respiratory BioFire is fully negative. CT chest/abd/pelvis without obvious source of infection. He has findings on CT chest concerning for PF but no pneumonia. S/P ERCP with removal of CBD stone and with biliary stent placement on 07/23- appreciate GI management -needs lap taylor-appreciate Surgery consult-plan for today -Continue zosyn and then convert to Augmentin when taking po to continue total course x 2 weeks as per GI . (2) Choledocholithiasis: Plan: As above Avoid nsaids for 1 week if possible ABX coverage for 2 weeks Cholecystectomy per General Surgery Repeat ERCP in 6 to 8 weeks for stent removal-to be arranged by GI team (3) Acute metabolic encephalopathy: Plan: ammonia, VBG wnl CT head without acute CVA or ICH. 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 Other cause? B12 level normal TSH was wnl in 11/2021 (4) Rhabdomyolysis: Plan: to fall. CK now normal Elevated AST on LFTs likely due to high CPK and now normal. (5) Gastritis: Plan: CT a/p with findings concerning for gastritis. He drinks etoh nightly thus he could have gastritis from such. continue IV PPI twice daily. His friend reports that he has had weight loss and poor appetite for some time. Indeed records show at least 20# of weight loss since July 2021. Gastric cancer?? 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 (9) Conjunctivitis: Plan: b/l Respiratory BioFire panel negative continue erythromycin eye ointment at HS (10) Facial trauma: Plan: 2nd to fall fortunately no fractures on extensive imaging of head/face/c-spine (11) Weight loss: Plan: 20 # based on records over the last 12 months highly concerning in light of worsening appetite patient has had memory loss - could have early dementia and weight loss could be due to such alternatively could have malignancy would be concerned about "gastritis" seen on CT a/p - is this a gastric malignancy? None seen grossly on ERCP again - focus on acute illness and address the weight loss following his recovery (12) Memory loss: Plan: based on his friend's description he has, at minimum, mild cognitive impairment. cannot rule out early dementia. B12 level normal check B1 level. TSH fall 2021 was wnl. given his progressive memory loss he will be at higher risk of delirium in the setting of illness. 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 repeat level normal (14) Permanent atrial fibrillation: Plan: per records he has chronic a.fib. he is being paced on monitor. hold Eliquis in light of his injuries, facial trauma, and now for surgery (15) History of cardiomyopathy: Plan: 2nd to pacemaker? (pt ventricularly paces) other? per cardiology notes he has been Rx with BB & DARYL with improved EF. EF on last echo 50-55% with mild RV dysfunction. caution with IV fluids-dc them today while taking clear liquids after ERCP due to hypotension HOLD BB; HOLD DARYL but restarted Coreg he does NOT examine in decompensated CHF Plan DVT proph - hold chemical means for surgery Dispo-continued stay on tele Admission and Anticipated Discharge Date Admission Date: July 21, 2022 Subjective Pt feels hungry, denies abd pains. Is agreeable to cholecystectomy. Discussed his care with him and his friend at the bedside. Discussed care with Surgeon and GI PA Tele with paced rhythm Physical Exam Constitutional: WD/WN, vitals as above Respiratory: normal respiratory effort, lungs clear to auscultation Cardiovascular: RRR, no murmur, no edema Gastrointestinal (Abdomen): normal bowel sounds, soft, nontender, no hepatosplenomegaly Psychiatric: Orientation: alert, oriented to person, oriented to place and cooperative; + not oriented to time Results & Data Results & Data Vital Signs (Past 12 Hours) Vital Signs Temp Pulse Pulse Resp BP Pulse Ox O2 Del Method 07/24/22 10:14 Room Air 07/24/22 09:11 60 07/24/22 07:47 36.2 C L 61 18 126/74 95 Room Air 07/24/22 04:00 36.6 C 68 18 114/72 95 Room Air 07/23/22 23:20 36.6 C 69 18 137/85 94 Room Air Laboratory Results CBC, CMP, CRP reviewed BCxs remain NGTD PG Care Time/CCT Total # of Minutes Spent Total Time Spent with Patient: Total time spent is greater than 50% in coordination of care (as documented) at patient's floor/unit and/or counseling patient: Coding Level of Care Code 83436 SUB INP/OBS CARE 2/35MIN Diagnoses Severe sepsis A41.9; R65.20 Choledocholithiasis K80.50 Acute metabolic encephalopathy G93.41 Rhabdomyolysis M62.82 Gastritis K29.70 Status cardiac pacemaker Z95.0 Hypertension I10 Hypertension type: essential hypertension BPH with obstruction/lower urinary tract symptoms N40.1; N13.8 Conjunctivitis H10.9 Facial trauma S09.93XA Weight loss R63.4 Memory loss R41.3 Folate deficiency E53.8 Permanent atrial fibrillation I48.21 History of cardiomyopathy Z86.79 (7) Hypertension Hypertension type: essential hypertension Qualified Code(s): I10 - Essential (primary) hypertension
--- NOTE | 2022-07-24 11:44 | Gastroenterology Progress Note ---
Date of Service July 24, 2022 Assessment & Plan (1) Severe sepsis: Plan: 87 year old male admitted after a fall, found to have sepsis and w/u showed CBD stone and mild biliary dilation. He underwent ERCP yesterday showing a stone in the distal CBD removed w/ a sph incterotomy and balloon extraction; biliary stent was also placed. Today feels well; no GI complaints. Labs w/ transaminases that have normalized, has stable CBC, no leukocytosis. On exam, soft abd. - Avoid NSAIDs for 1 week if possible - Continue ABX coverage for 2 weeks - Cholecystectomy per General Surgery - Repeat ERCP in 6 to 8 weeks for stent removal which we will arrange - GI will sign off. Please call with any acute changes, questions or concerns. Please see addendum below with additional recommendation from my supervising physician. Admission and Anticipated Discharge Date Admission Date: July 21, 2022 Supervising Physician Co-Signing Physician Notes I have personally seen and examined the patient with Milagros Mahmood PA-C. Her note reflects my exam and findings. I agree with her impression and plan. Doing well s/p ERCP. Andrew Lazcano M.D. Subjective No acute events overnight. Pt friend at bedside. They have many questions about planned cholecystectomy today. Denies abd pain, n/v, fever, chills, CP, SOB. Physical Exam Constitutional: well developed; no acute distress Eyes: Sclera anicteric Respiratory: normal resp effort Chest (Breasts): Additional Comments: RRR Gastrointestinal (Abdomen): Inspection/Auscultation: abdomen not distended (soft, nontender,) Skin: no rashes, warm and dry Neurologic: alert and oriented to self, seems somewhat confused as to recent events, no obvious focal neuro deficit Results & Data Vital Signs (Past 12 Hours) Vital Signs Temp Pulse Pulse Resp BP Pulse Ox O2 Del Method 07/24/22 11:00 36.5 C 68 18 135/82 95 Room Air 07/24/22 10:14 Room Air 07/24/22 09:11 60 07/24/22 07:47 36.2 C L 61 18 126/74 95 Room Air 07/24/22 04:00 36.6 C 68 18 114/72 95 Room Air Laboratory Results 07/24/22 07/24/22 Range/Units 06:52 06:52 WBC 8.64 (4.8-10.8) K/ul RBC 4.07 L (4.70-6.10) M/uL Hgb 12.6 L (14.0-18.0) g/dl Hct 37.1 L (42.0-52.0) % MCV 91.2 (80.0-100.0) fL MCH 31.0 (25.0-34.0) pg MCHC 34.0 (32.0-36.0) g/dL RDW Std Deviation 48.7 H (36.4-46.3) fL RDW Coeff of Adolfo 14.6 H (11.5-14.5) % Plt Count 200 (130-400) K/uL MPV 10.7 (9.4-12.4) fL Immature Gran % (Auto) 0.3 % Neut % (Auto) 66.1 % Lymph % (Auto) 19.3 % [place] % (Auto) 10.0 % Eos % (Auto) 3.8 % Baso % (Auto) 0.5 % Neut # (Auto) 5.71 (1.40-6.50) K/uL Lymph # (Auto) 1.67 (1.2-3.4) K/uL [place] # (Auto) 0.86 H (0.11-0.59) K/uL Eos # (Auto) 0.33 (0-0.50) K/uL Baso # (Auto) 0.04 (0-0.2) K/uL Immature Gran # (Auto) 0.03 (0.01-0.20) K/uL Sodium 143 (136-145) mmol/L Potassium 3.6 (3.5-5.1) mmol/L Chloride 111 H (98-107) mmol/L Carbon Dioxide 28 (21-32) mmol/L Anion Gap 4 (3-11) BUN 21 (6-23) mg/dl Creatinine 0.79 (0.6-1.4) mg/dl Est Cr Clr Drug Dosing 66.7 ml/min Est GFR ( Amer) 92.9 ml/min Est GFR (Non-Af Amer) 80.2 ml/min BUN/Creatinine Ratio 26.6 H (10-20) Glucose 98 (70-99(Fasting)) mg/dl Calcium 8.4 L (8.6-10.3) mg/dl Magnesium 1.5 L (1.7-2.4) mg/dl Total Bilirubin 1.1 H (0.2-1.0) mg/dl AST 33 (13-39) U/L ALT 34 (7-52) U/L Alkaline Phosphatase 41 (34-104) U/L Total Creatine Kinase 113 (30-223) U/L C-Reactive Protein 4.54 H (0-0.5) mg/dl Total Protein 5.8 L (6.0-8.3) gm/dl Albumin 2.8 L (3.4-5.0) gm/dl Globulin 3.0 (2.5-4.0) gm/dl Albumin/Globulin Ratio 0.9 (0.9-2) Diagnostic Findings ERCP 07/24/22: - The major papilla appeared normal. - The entire main bile duct was moderately dilated, with a stone causing an obstruction. - A biliary sphincterotomy was performed. - The biliary tree was swept and sludge was found. - One biliary stent was placed into the common bile duct. Recommendation: - Avoid aspirin and nonsteroidal anti-inflammatory medicines for 1 week. - Clear liquid diet. - Repeat ERCP in 6 weeks to remove stent. - Cholecystectomy per General Surgery
--- NOTE | 2022-07-24 14:41 | Anesthesiology Consultation ---
Date of Service July 24, 2022 Assessment & Plan ASA ASA4 Proposed Anesthesia Anesthesia Type: General Risk / Benefits Reviewed With: PT / POA / Parent / Guardian, Accepts Plan and Informed Consent Obtained History Surgery Operation Date: 07/23/22 07:00 Proposed Procedures p Endoscopic Retrograde Cholangiopancreato - Nara Rendon, Operation Date: 07/24/22 08:15 Proposed Procedures p Laparoscopic Cholecystectomy - Sudarshan Hernandez, DO Height/Weight Height: 5 ft 10 in Weight: 79.1 kg Allergies Allergy/AdvReac Type Severity Reaction Status Date / Time ciprofloxacin Allergy Intermediate Rash Verified 07/20/22 23:37 Quinolones Allergy Intermediate CIPRO-RASH Verified 07/20/22 23:37 Medications Home Medications Medication Instructions Recorded Confirmed Last Taken clobetasol-emollient 0.05 % 1 appln topical BID PRN flare up 11/15/19 07/20/22 Unknown topical cream #1 g cholecalciferol (vitamin D3) 50 50 mcg PO DAILY #30 caps 05/29/20 07/20/22 12/28/21 mcg (2,000 unit) capsule carvedilol 25 mg tablet 25 mg PO BID #180 tabs 07/05/21 07/20/22 12/28/21 08:00 cyanocobalamin (vitamin B-12) 1,000 mcg PO DAILY #30 tabs 01/03/22 07/20/22 Unknown 1,000 mcg tablet lisinopril 5 mg tablet 5 mg PO DAILY #100 tabs 02/10/22 07/20/22 Unknown apixaban 5 mg tablet (Eliquis) 5 mg PO BID #180 tabs 02/11/22 07/20/22 Unknown folic acid 1 mg tablet 1 mg PO DAILY #90 tabs 02/19/22 07/20/22 Unknown Active Medications Generic Name Dose Route Start Last Admin Trade Name Freq PRN Reason Stop Dose Admin Acetaminophen 650 mg 07/21/22 02:13 07/21/22 12:15 Acetaminophen 325 Mg Tab PO 08/20/22 02:12 650 mg Q4H PRN Administration Pain or Fever Carvedilol 6.25 mg 07/23/22 21:00 07/24/22 07:55 Carvedilol 6.25 Mg Tab PO 08/22/22 20:59 Not Given BID KAMILA Erythromycin 1 appln 07/21/22 21:00 07/23/22 21:49 Erythromycin Op Oint 5 Mg/Gm 3.5 Gm Tube OP 07/31/22 20:59 1 appln HS KAMILA Administration Piperacillin Sod/Tazobactam 120 mls @ 30 mls/hr 07/21/22 05:00 07/24/22 13:48 Sod 4.5 gm/ Dextrose IV 07/31/22 04:44 30 mls/hr Q8H KAMILA Administration Protocol Pantoprazole Sodium 40 mg/ 10 mls @ 5 mls/min 07/24/22 09:00 07/24/22 07:55 Syringe IV 08/23/22 08:59 5 mls/min QAM KAMILA Administration Thiamine HCl 100 mg/ Syringe 10 mls @ 2 mls/min 07/24/22 09:00 07/24/22 07:56 IV 08/23/22 08:59 2 mls/min DAILY KAMILA Administration NPO Date Last Intake of Fluids: 07/22/22 Time Last Intake of Fluids: 23:00 Date Last Intake of Solids: 07/22/22 Time Last Intake of Solids: 23:59 Past Medical History Medical History (Updated 07/24/22 @ 09:32 by Sudarshan Hernandez DO) Atrial fibrillation Cardiomyopathy Encounter for pre-operative examination Hypertension Impaired fasting glucose Memory loss Third degree heart block Exercise / Class Metabolic Activity II 4-5 Yardwork/Stairs/Walk up hill Past Family History Family History Father Old age Mother Old age Grandfather (Maternal) Myocardial infarction Other No significant family history Denies family history of Ovarian cancer Prostate cancer Breast cancer Lung cancer Colorectal cancer Stroke Past Surgical History Surgical History History of colonoscopy History of laparoscopy history of pyelotomy with lithotomy History of pacemaker Past Anesthesia History No Hx of Anesthesia Complications and No Family Hx of Anesthesia Complications History of PONV No Hx of PONV and No Hx of Motion Sickness Social History Smoking Status: Never smoker Do You Dip or Chew Tobacco: No Hx Alcohol Use: Yes Alcohol type: beer alcohol intake frequency: a few times a week Hx Substance Use: No Review of Systems denies fever/cough/ colds/ chest pain/ SOB/ SHANNAN denies SHANNAN Physical Exam Vital Signs Last Vital Signs Temp 36.5 C 07/24/22 14:25 Pulse 61 07/24/22 14:25 Resp 18 07/24/22 14:25 BP 154/83 H 07/24/22 14:25 Pulse Ox 95 07/24/22 14:25 O2 Del Method Room Air 07/24/22 14:25 O2 Flow Rate 5 07/23/22 14:40 ENMT Mouth: + edentulous (pt has a few remaining teeth); no TMJ abnormality and no dentition abnormality Thyromental Distance: > or= 3.5 Finger Breadths Mallampati Class: III Neck + facial hair; neck extension not limited Respiratory normal respiratory effort; no respiratory distress Auscultation: lungs clear to auscultation bilaterally Cardiovascular Rate/Rhythm: regular rate and regular rhythm Neurologic moves all extremities Psychiatric Orientation: alert and oriented x 3 Testing Laboratory Results 07/24/22 06:52 07/24/22 06:52 PT 13.2 Seconds (9.0-12.0) H 07/20/22 20:20 INR 1.2 (0.9-1.1) H 07/20/22 20:20 Urine Color [place] 07/20/22 22:18 Urine Appearance Turbid (Clear) A 07/20/22 22:18 Urine pH 5.0 (4.5-7.5) 07/20/22 22:18 Ur Specific [place] 1.026 (1.000-1.030) 07/20/22 22:18 Urine Protein 2+ (Negative) H 07/20/22 22:18 Urine Glucose (UA) Negative (Negative) 07/20/22 22:18 Urine Ketones Negative (Negative) 07/20/22 22:18 Urine Nitrite Positive (Negative) A 07/20/22 22:18 Ur Leukocyte Esterase 1+ (Negative) H 07/20/22 22:18 Urine WBC (Auto) 10-30 /hpf (0-5) H 07/20/22 22:18 Urine RBC (Auto) >30 /hpf (0-4) H 07/20/22 22:18 U Hyaline Cast (Auto) 1-5 /lpf (0-5) 07/20/22 22:18 U Epithel Cells (Auto) 10-20 /lpf (0-5) H 07/20/22 22:18 Urine Bacteria (Auto) Negative (Negative) 07/20/22 22:18 07/20/22 22:45 Aerobic Blood Culture - Preliminary Blood No growth in Aerobic bottle after 48 hours. Anaerobic Blood Culture - Preliminary No growth in Anaerobic bottle after 48 hours. 07/20/22 20:35 Aerobic Blood Culture - Preliminary Blood No growth in Aerobic bottle after 48 hours. 07/20/22 22:18 Urine Culture - Final Urine,Straight Cath No growth - less than 1,000 colonies/mL. Electrocardiogram Date: 07/20/22 Findings: + NSR @ (93) Poor data quality, interpretation may be adversely affected Ventricular- paced rhythm Abnormal ECG When compared with ECG of 18-MAY-2022 16:26, Vent. rate has increased BY 9 BPM Confirmed by Colt Apple ([id number]) on 07/22/2022 10:52:27 AM Echocardiogram Date: 10/08/21 LV systolic function is normal Moderate LVH LA mildly dilated Mild MR EF 50-55%
[2022-07-24] MEDS ORDERED: ePHEDrine sulfate 50 MG/ML AMP IV PRN (14:42)
[2022-07-24] MEDS ORDERED: ONDANSETRON INJ 2 MG/ML 2 ML VIAL IV PRN (14:42)
[2022-07-24] MEDS ORDERED: ATROPINE SULFATE 0.1 MG/ML 10ML SYR IV PRN (14:42)
[2022-07-24] MEDS ORDERED: HYDROmorphone INJ 2 MG/ML SYR/VIAL IV PRN (14:42)
[2022-07-24] MEDS ORDERED: fentaNYL citrate PF 100 MCG/2 ML VIAL ONE (15:05)
[2022-07-24] MEDS ORDERED: BUPIVACAINE/EPINEPHRINE 0.5% MPF 1:200,000 30 ML VIAL ONE (15:07)
[2022-07-24] MEDS ORDERED: ONDANSETRON INJ 2 MG/ML 2 ML VIAL ONE (16:02)
[2022-07-24] MEDS ORDERED: PROPOFOL IV EMULSION 10 MG/ML 20 ML VIAL IV ONE (16:02)
[2022-07-24] MEDS ORDERED: LIDOCAINE 2% 2 ML VIAL/AMP(20MG/ML) INFIL ONE (16:02)
[2022-07-24] MEDS ORDERED: GLYCOPYRROLATE 0.2 MG/ML VIAL ONE (16:02)
[2022-07-24] MEDS ORDERED: DEXAMETHASONE SOD INJ 4 MG/ML VIAL ONE (16:02)
[2022-07-24] MEDS ORDERED: SUGAMMADEX SODIUM 200 MG/2 ML VIAL IV ONE (16:07)
--- NOTE | 2022-07-24 16:29 | Anesthesiology Progress Note ---
Date of Service July 24, 2022 Anesthesia Post Procedure Vital Signs Vital Signs: Temp Pulse Pulse Pulse Resp BP Pulse Ox 07/24/22 16:09 61 07/24/22 14:25 36.5 C 61 18 154/83 H 95 07/24/22 11:00 36.5 C 68 18 135/82 95 07/24/22 10:14 07/24/22 09:11 60 07/24/22 07:47 36.2 C L 61 18 126/74 95 07/24/22 04:00 36.6 C 68 18 114/72 95 07/23/22 22:08 66 07/23/22 23:20 36.6 C 69 18 137/85 94 07/23/22 19:00 36.3 C L 70 18 143/97 H 95 07/23/22 16:42 36.7 C 62 19 133/81 92 O2 Del Method 07/24/22 16:09 07/24/22 14:25 Room Air 07/24/22 11:00 Room Air 07/24/22 10:14 Room Air 07/24/22 09:11 07/24/22 07:47 Room Air 07/24/22 04:00 Room Air 07/23/22 22:08 07/23/22 23:20 Room Air 07/23/22 19:00 Room Air 07/23/22 16:42 Room Air Transfer of Care Handoff Completed per policy Notes Mental Status: alert / awake / arousable Patient Amnestic to Procedure: Yes Nausea / Vomiting: adequately controlled Pain: adequately controlled Airway Patency, RR, SpO2: stable & adequate BP & HR: stable & adequate Hydration State: stable & adequate Anesthetic Complications: no major complications apparent
--- NOTE | 2022-07-24 16:33 | Operative Report ---
PG Post Operative Report Pre & Post Diagnosis Operation Date: 07/24/22 08:15 Pre-Op Diagnosis: cholelithiasis Post-Op Diagnosis: cholelithiasis I identified the patient and participated in the time-out.: Yes Procedure Operation Date: 07/24/22 08:15 Actual Procedures p Laparoscopic Cholecystectomy(Not Applicable) - Sudarshan Hernandez DO Surgeon Sudarshan Hernandez DO Marketing Liaison Dr. Sanchez MD Estimated Blood Loss 50 Findings Consistent with Post-Op Diagnosis Specimens gallbladder Description of Procedure After informed consent was obtained the patient was taken to the operating room and placed in the supine position. After successful intubation the abdomen was sterilely prepped and draped in usual fashion. A periumbilical incision was made with an 11 blade scalpel and carried down through the soft tissue using electrocautery. The anterior rectus fascia was opened using electrocautery and 2 #0 Vicryl stay sutures were placed. The peritoneum was elevated with hemostats and incised under direct vision using Metzenbaum scissors. A finger sweep was performed and a 12 mm [place] trocar was placed. The abdomen was insufflated to 18 mmHg. The laparoscope was inserted and the abdomen was examined in 360. No gross abnormalities were identified. A subxiphoid 5 mm port and 2 right upper quadrant 5 mm ports were placed under direct vision. The patient was placed in a reverse Trendelenburg position and slightly airplaned to the left. The gallbladder was grasped and elevated superiorly and laterally. A [place] dissector was used to take down adhesions around the neck of the gallbladder. The cystic duct was identified and skeletonized. It was clipped twice proximally and once distally and transected using a laparoscopic scissor. In similar fashion the cystic artery was identified and skeletonized clipped and divided. The gallbladder was removed from the gallbladder fossa with electrocautery. It was placed into an Endo Catch bag. Thorough irrigation was performed. At the end of the procedure there was adequate hemostasis and no evidence of any bile leaks. A final look around the abdomen showed no other abnormalities. The gallbladder and trochars were all removed and the abdomen was desufflated. The fascia of the camera port was closed using 0 Vicryl in a [id number] fashion. All the wounds were irrigated and closed using 4-0 Monocryl. Marcaine was injected around them for postoperative analgesia and skin glue used as a dressing. The patient was awaken extubated and transferred to recovery in stable condition. My physician information services assistant was not available and therefore one of my partners Dr. David Arnold was present throughout the entire case... helped with prepping the patient. With exposure for trocar placement, as well as retracted the gallbladder throughout the case and also assisted with wound closure and dressing placement. I attest to the content of the Intraoperative Record and any orders documented therein. Any exceptions are noted below.
[2022-07-24] MEDS: fentaNYL citrate PF 100 MCG/2 ML VIAL IV PRN ×2 (16:42→16:49)
[2022-07-24] MEDS ORDERED: oxyCODONE HCL IR 5 MG TAB (IMMEDIATE RELEASE) PO PRN ×2 (17:33)
[2022-07-24] MEDS ORDERED: MoRPHine SULFATE 2 MG/ML CARP IV PRN (17:33)
[2022-07-24] MEDS: LACTATED RINGER'S 1,000 ML IV SCH (17:44)
[2022-07-24] MEDS: ERYTHROMYCIN OP OINT 5 MG/GM 3.5 GM TUBE OP SCH (22:07)
[2022-07-25] MEDS: PIPERACILLIN/TAZOBACTAM 4.5 GM in DEXTROSE 5% 100 ML IV SCH ×3 (05:58→20:15)
[2022-07-25] MEDS: LACTATED RINGER'S 1,000 ML IV SCH ×2 (06:39→19:12)
[2022-07-25 07:40] LABS: Basophils # (auto) 0.03 K/uL (0-0.2); Basophils % (auto) 0.3 %; Eosinophils # (auto) 0.04 K/uL (0-0.50); Eosinophils % (auto) 0.4 %; Hematocrit (blood only) 44.5 % (42.0-52.0); Hemoglobin 14.5 g/dl (14.0-18.0); Immature Granulocytes # (auto) 0.04 K/uL (0.01-0.20); Immature Granulocytes % (auto) 0.4 %; Lymphocytes # (auto) 1.36 K/uL (1.2-3.4); Lymphocytes % (auto) 13.3 %; Mean Corpuscular Hemoglobin 31.3 pg (25.0-34.0); Mean Corpuscular Hgb Conc 32.6 g/dL (32.0-36.0); Mean Corpuscular Volume 95.9 fL (80.0-100.0); Mean Platelet Volume 10.7 fL (9.4-12.4); Monocytes # (auto) 0.87 K/uL (0.11-0.59); Monocytes % (auto) 8.5 %; Neutrophils # (auto) 7.87 K/uL (1.40-6.50); Neutrophils % (auto) 77.1 %; Platelet Count 189 K/uL (130-400); RDW Coefficient of Variation 14.6 % (11.5-14.5); RDW Standard Deviation 51.2 fL (36.4-46.3); Red Blood Count 4.64 M/uL (4.70-6.10); White Blood Count 10.21 K/ul (4.8-10.8)
[2022-07-25 07:41] LABS: Bilirubin Direct 0.3 mg/dl (0-0.2); Calcium 8.5 mg/dl (8.6-10.3)
[2022-07-25 07:47] LABS: BUN Creatinine Ratio 23.8 (10-20); Creatinine Clr Calc Pharmacy 65.9 ml/min; Est GFR (African American) 92.4 ml/min; Est GFR (Non-African American) 79.8 ml/min; Total Protein 6.2 gm/dl (6.0-8.3)
--- NOTE | 2022-07-25 08:32 | Surgery Progress Note ---
Date of Service July 25, 2022 Assessment & Plan (1) Cholelithiasis: Plan: Postoperative day #1 Doing well We will slowly advance diet. We will order physical therapy if not already done Admission and Anticipated Discharge Date Admission Date: July 21, 2022 Subjective Patient doing well. He is tolerating a diet so far. His pain is controlled Physical Exam Physical Exam: Alert. No acute distress Abdomen is soft. Expected incisional tenderness. The incisions look good Results & Data Vital Signs (Past 12 Hours) Vital Signs Temp Pulse Pulse Pulse Resp BP Pulse Ox 07/25/22 08:00 36.4 C L 59 L 14 154/68 H 95 07/25/22 07:28 60 07/25/22 07:11 60 07/25/22 03:57 36.4 C L 59 L 18 145/85 H 95 07/24/22 23:02 36.6 C 60 18 120/75 92 O2 Del Method 07/25/22 08:00 Room Air 07/25/22 07:28 07/25/22 07:11 07/25/22 03:57 Room Air 07/24/22 23:02 Room Air PG Care Time/CCT Total # of Minutes Spent Total Time Spent with Patient: Total time spent is greater than 50% in coordination of care (as documented) at patient's floor/unit and/or counseling patient: Coding Level of Care Code 17875 Post Operative Follow-Up Diagnoses Cholelithiasis K80.20
[2022-07-25] MEDS: THIAMINE HCL 100 MG in SYRINGE 9 ML IV SCH (08:54)
[2022-07-25] MEDS: PANTOprazole 40 MG in SYRINGE 0 ML IV SCH (08:54)
[2022-07-25] MEDS: carvediloL 6.25 MG TAB PO SCH ×2 (08:57→20:16)
[2022-07-25] MEDS: ERYTHROMYCIN OP OINT 5 MG/GM 3.5 GM TUBE OP SCH (20:16)
--- NOTE | 2022-07-25 20:18 | Hospitalist Progress Note ---
Date of Service July 25, 2022 Assessment & Plan (1) Severe sepsis: Plan: Patient presented with leukocytosis, lactic acidosis, altered mental status, hypotension Etiology initially unknown but later found to have choledocholithiasis and acute taylor after having RUQ abd tenderness on exam Was given appropriate IVF resuscitation, antibiotics and his lactic acidosis and hypotension resolved. procalcitonin level mildly high. CRP is markedly elevated and trended downward Although u/a was suspicious for UTI his urine culture has already resulted as negative. Thus far his blood cx's remain negative. He has b/l conjunctivitis on exam suggesting a viral etiology but Respiratory BioFire is fully negative. CT chest/abd/pelvis without obvious source of infection. 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 S/P ERCP with removal of CBD stone and with biliary stent placement on 07/23- appreciate GI management -now s/p lap taylor on 07/24--> appreciate Surgery consult -Continue zosyn and then convert to Augmentin when taking po to continue total course x 2 weeks as per GI-convert to this for tomorrow AM -follow CBC, CMP, Mag in AM -advance diet to regular today -remove Sorto in AM (2) Choledocholithiasis: Plan: As above s/p ERCP with CBD stone removal nd stent placemnt Avoid nsaids for 1 week if possible ABX coverage for 2 weeks Cholecystectomy per General Surgery Repeat ERCP in 6 to 8 weeks for stent removal-to be arranged by GI team (3) Acute metabolic encephalopathy: Plan: ammonia, VBG wnl CT head without acute CVA or ICH. Leading cause of altered mental status is sepsis--> now much improved with treatment of GB Was given high dose IV thiamine 500mg tid x 2 days-> B1 level pending--> reduced to 100mg IV daily and convert to po thiamine for in AM Thiamine deficiency with Wernicke's possible given his chronic etoh use? Other cause? B12 level normal f/u B1 level when available TSH was wnl in 11/2021 (4) Rhabdomyolysis: Plan: to fall. CK now normal Elevated AST on LFTs likely due to high CPK and now normal (5) Gastritis: Plan: CT a/p with findings concerning for gastritis. He drinks etoh nightly thus he could have gastritis from such. was on IV PPI twice daily-convert to Protonix 40mg po qAM for in AM His friend reports that he has had weight loss and poor appetite for some time. Indeed records show at least 20# of weight loss since July 2021. Gastric cancer?? None mentioned on ERCP (6) Status cardiac pacemaker: Plan: normal pacer interrogation - r/o dysrhythmia as cause of fall vs syncopal episode vs other no events on tele thus far can downgrade off tele (7) Hypertension: Plan: with hypotension on admission now resolved continue to HOLD lisinopril but have restarted COreg at a lower dose of 6.25mg bid-increase to 12.5mg po bid now perhaps low blood pressure led to his dizziness and fall (8) BPH with obstruction/lower urinary tract symptoms: Plan: Sorto in place. remove Sorto AM of 07/26 (9) Conjunctivitis: Plan: b/l -now resolved Respiratory BioFire panel negative continue erythromycin eye ointment at HS (10) Facial trauma: Plan: 2nd to fall fortunately no fractures on extensive imaging of head/face/c-spine (11) Weight loss: Plan: 20 # based on records over the last 12 months highly concerning in light of worsening appetite, but may have been from choledocholithiasis or smoldering acute taylor patient has had memory loss - could have early dementia and weight loss could be due to such alternatively could have malignancy would be concerned about "gastritis" seen on CT a/p - is this a gastric malignancy? None seen grossly on ERCP (12) Memory loss: Plan: based on his friend's description he has, at minimum, mild cognitive impairment. cannot rule out early dementia. B12 level normal check B1 level-pending TSH fall 2021 was wnl. given his progressive memory loss he will be at higher risk of delirium in the setting of illness. 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 repeat level normal (14) Permanent atrial fibrillation: Plan: per records he has chronic a.fib. paced rhythm on tele hold Eliquis in light of his injuries, facial trauma, and now for surgery- restart if ok with Surgery hopefully in 1-2 days (15) History of cardiomyopathy: Plan: 2nd to pacemaker? (pt ventricularly paces) other? per cardiology notes he has been Rx with BB & DARYL with improved EF. EF on last echo 50-55% with mild RV dysfunction. c-back on gentle IVFs until taking improved po-stop in AM -continue COreg -hold lisinopril he does NOT examine in decompensated CHF Plan DVT proph - hold chemical means for surgery, restart Eliquis hopefully 2 days post op if ok with Surgery Dispo-continued stay but downgrade off tele Admission and Anticipated Discharge Date Admission Date: July 21, 2022 Subjective Feeling fairly well, eating regular food now but reports appetite not back to normal. Has some abd soreness from surgery but not bad. Tele with paced rhythm Physical Exam Constitutional: WD/WN, vitals as above Respiratory: normal respiratory effort, lungs clear to auscultation Cardiovascular: RRR, no murmur, no edema Gastrointestinal (Abdomen): Inspection/Auscultation: normal bowel sounds; + abdomen abnormal to inspection (multiple laparoscopic incisions w/ dermabond,cdi) Percussion/Palpation: abdomen soft; abdomen nontender Psychiatric: Orientation: alert, oriented to person, oriented to place and cooperative; + not oriented to time Genitourinary: Sorto in place with dark yellow urine Results & Data Results & Data Vital Signs (Past 12 Hours) Vital Signs Temp Pulse Pulse Pulse Resp BP Pulse Ox 07/25/22 19:51 36.5 C 67 18 94 07/25/22 15:07 64 07/25/22 14:24 36.1 C L 64 20 104/66 90 07/25/22 12:18 07/25/22 11:38 36.2 C L 62 16 140/86 98 O2 Del Method 07/25/22 19:51 Room Air 07/25/22 15:07 07/25/22 14:24 Room Air 07/25/22 12:18 Room Air 07/25/22 11:38 Room Air Laboratory Results CBC, CMP reviewed Blood cxs NGTD PG Care Time/CCT Total # of Minutes Spent Total Time Spent with Patient: Total time spent is greater than 50% in coordination of care (as documented) at patient's floor/unit and/or counseling patient: Coding Level of Care Code 98376 SUB INP/OBS CARE 2/35MIN Diagnoses Severe sepsis A41.9; R65.20 Choledocholithiasis K80.50 Acute metabolic encephalopathy G93.41 Rhabdomyolysis M62.82 Gastritis K29.70 Status cardiac pacemaker Z95.0 Hypertension I10 Hypertension type: essential hypertension BPH with obstruction/lower urinary tract symptoms N40.1; N13.8 Conjunctivitis H10.9 Facial trauma S09.93XA Weight loss R63.4 Memory loss R41.3 Folate deficiency E53.8 Permanent atrial fibrillation I48.21 History of cardiomyopathy Z86.79 (7) Hypertension Hypertension type: essential hypertension Qualified Code(s): I10 - Essential (primary) hypertension
[2022-07-25] MEDS: carvediloL 12.5 MG TAB PO SCH (21:23)
[2022-07-26 06:24] LABS: Basophils # (auto) 0.04 K/uL (0-0.2); Basophils % (auto) 0.4 %; Eosinophils # (auto) 0.39 K/uL (0-0.50); Eosinophils % (auto) 3.8 %; Hematocrit (blood only) 40.7 % (42.0-52.0); Hemoglobin 13.5 g/dl (14.0-18.0); Immature Granulocytes # (auto) 0.05 K/uL (0.01-0.20); Immature Granulocytes % (auto) 0.5 %; Lymphocytes # (auto) 2.09 K/uL (1.2-3.4); Lymphocytes % (auto) 20.6 %; Mean Corpuscular Hgb Conc 33.2 g/dL (32.0-36.0); Mean Corpuscular Volume 93.3 fL (80.0-100.0); Mean Platelet Volume 11.1 fL (9.4-12.4); Monocytes # (auto) 1.33 K/uL (0.11-0.59); Monocytes % (auto) 13.1 %; Neutrophils # (auto) 6.25 K/uL (1.40-6.50); Neutrophils % (auto) 61.6 %; Platelet Count 193 K/uL (130-400); RDW Coefficient of Variation 14.3 % (11.5-14.5); RDW Standard Deviation 49.1 fL (36.4-46.3); Red Blood Count 4.36 M/uL (4.70-6.10); White Blood Count 10.15 K/ul (4.8-10.8)
[2022-07-26 06:27] LABS: Albumin Level 2.9 gm/dl (3.4-5.0); BUN Creatinine Ratio 22.1 (10-20); Bilirubin Direct 0.3 mg/dl (0-0.2); Bilirubin,Total 0.9 mg/dl (0.2-1.0); Calcium 8.5 mg/dl (8.6-10.3); Creatinine Clr Calc Pharmacy 61.3 ml/min; Est GFR (African American) 89.7 ml/min; Est GFR (Non-African American) 77.4 ml/min; Magnesium 1.6 mg/dl (1.7-2.4); Potassium 3.8 mmol/L (3.5-5.1)
[2022-07-26] MEDS: AMOXICILLIN/CLAVULANATE 875 MG TAB PO SCH ×2 (08:21→17:03)
[2022-07-26] MEDS: carvediloL 12.5 MG TAB PO SCH ×2 (08:21→20:38)
[2022-07-26] MEDS: FOLIC ACID 1 MG TAB PO SCH (08:22)
[2022-07-26] MEDS: CYANOCOBALAMIN (B-12) 500 MCG TABLET PO SCH (08:22)
[2022-07-26] MEDS: PANTOprazole 40 MG TAB PO SCH (08:23)
[2022-07-26] MEDS: THIAMINE HCL 100 MG TAB PO SCH (08:23)
--- NOTE | 2022-07-26 10:19 | Surgery Progress Note ---
Date of Service July 26, 2022 Assessment & Plan (1) Cholelithiasis: Plan: POD #2 Mr. Andrews is doing well. Incisions are healing well with no signs of infection. He is tolerating a heart healthy diet. Discharge instructions reviewed. Patient to follow-up with GI as outpatient in 6-8 weeks for stent removal. Return precautions reviewed. From a surgical standpoint, he is ok for discharge when deemed ok by primary team. Postoperative day #1 Doing well We will slowly advance diet. We will order physical therapy if not already done Admission and Anticipated Discharge Date Admission Date: July 21, 2022 Supervising Physician Co-Signing Physician Notes Patient seen and examined, agree with above. POD #2 ERCP and cholecystectomy, doing well. On exam afebrile, abdomen soft, nontender, incisions without infection. Labs unremarkable. Okay to DC from general surgery standpoint. Follow-up with Dr. Hernandez in 2 weeks. Activity striction's, wound care instructions, and return precautions given. Subjective Mr. Andrews is resting comfortably in bed, taking a nap. He is easily awakened. He reports that he is doing well. He is tolerating a heart healthy diet. Review of Systems Constitutional: no fever and no chills Gastrointestinal: no abdominal pain, no nausea and no vomiting Physical Exam Physical Exam: On physical exam- incisions are clean, dry, intact and well-approximated with surgical glue in place. No signs of infection. Abdomen is soft. Expected incisional tenderness. Constitutional: WD/WN, vitals as above Respiratory: normal respiratory effort; no respiratory distress and no labored breathing Results & Data Vital Signs (Past 12 Hours) Vital Signs Temp Pulse Resp BP Pulse Ox O2 Del Method 07/26/22 09:37 Room Air 07/26/22 07:45 36.8 C 60 18 144/78 H 94 Room Air 07/26/22 04:43 36.9 C 63 20 141/83 H 95 Room Air 07/25/22 22:54 36.4 C L 67 20 109/71 94 Room Air PG Care Time/CCT Total # of Minutes Spent Total Time Spent with Patient: Total time spent is greater than 50% in coordination of care (as documented) at patient's floor/unit and/or counseling patient: Coding Level of Care Code 38841 Post Operative Follow-Up Diagnoses Cholelithiasis K80.20
[2022-07-26] MEDS: lisinopril 5 MG TAB PO SCH (10:25)
[2022-07-26] MEDS: MAGNESIUM OXIDE 400 MG TAB PO SCH (10:25)
[2022-07-26] MEDS: APIXABAN 5 MG TABLET PO SCH ×2 (11:56→20:38)
--- NOTE | 2022-07-26 16:56 | Hospitalist Progress Note ---
Date of Service July 26, 2022 Assessment & Plan (1) Severe sepsis: Plan: Mr. Andrews is an 87 yo M who was admitted for severe sepsis 2/2 choledocholithiasis and acute cholecystitis. He is now S/P ERCP with removal of CBD stone and with biliary stent placement and has undergone a laparoscopic cholecystectomy. (1) Severe sepsis: Plan: - Patient presented with leukocytosis, lactic acidosis, altered mental status, hypotension - Secondary to choledocholithiasis and acute cholecystitis - Blood cultures finalized negative. - Was given appropriate IVF resuscitation, antibiotics and his lactic acidosis and hypotension resolved. - Converted IV Zosyn to PO Augmentin today. Treat for total of 2 weeks. (2) Choledocholithiasis: Plan: As above s/p ERCP with CBD stone removal and stent placement Avoid nsaids for 1 week if possible ABX coverage for 2 weeks Cholecystectomy per General Surgery Repeat ERCP in 6 to 8 weeks for stent removal-to be arranged by GI team (3) Acute metabolic encephalopathy: Plan: ammonia, VBG wnl CT head without acute CVA or ICH. Leading cause of altered mental status is sepsis--> now much improved with treatment of GB Was given high dose IV thiamine 500mg tid x 2 days-> B1 level pending--> reduced to 100mg IV daily and convert to po thiamine for in AM Thiamine deficiency with Wernicke's possible given his chronic etoh use? Other cause? B12 level normal f/u B1 level when available TSH was wnl in 11/2021 (4) Rhabdomyolysis: Plan: 2nd to fall. CK now normal Elevated AST on LFTs likely due to high CPK and now normal (5) Gastritis: Plan: CT a/p with findings concerning for gastritis. He drinks etoh nightly thus he could have gastritis from such. was on IV PPI twice daily-convert to Protonix 40mg po qAM for in AM His friend reports that he has had weight loss and poor appetite for some time. Indeed records show at least 20# of weight loss since July 2021. Gastric cancer?? None mentioned on ERCP (6) Status cardiac pacemaker: Plan: normal pacer interrogation - r/o dysrhythmia as cause of fall vs syncopal episode vs other no events on tele thus far --> downgraded off tele (7) Hypertension: Plan: hypotension on admission now resolved home antihypertensives resumed (8) BPH with obstruction/lower urinary tract symptoms: Plan: Sorto in place. remove Sorto AM of 07/26 (9) Conjunctivitis: Plan: b/l -now resolved Respiratory BioFire panel negative continue erythromycin eye ointment at HS (10) Facial trauma: Plan: 2nd to fall fortunately no fractures on extensive imaging of head/face/c-spine (11) Weight loss: Plan: 20 # based on records over the last 12 months highly concerning in light of worsening appetite, but may have been from choledocholithiasis or smoldering acute taylor patient has had memory loss - could have early dementia and weight loss could be due to such alternatively could have malignancy would be concerned about "gastritis" seen on CT a/p - is this a gastric malignancy? None seen grossly on ERCP (12) Memory loss: Plan: based on his friend's description he has, at minimum, mild cognitive impairment. cannot rule out early dementia. B12 level normal check B1 level-pending TSH fall 2021 was wnl. given his progressive memory loss he will be at higher risk of delirium in the setting of illness. 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 repeat level normal (14) Permanent atrial fibrillation: Plan: per records he has chronic a.fib. paced rhythm on tele hold Eliquis in light of his injuries, facial trauma, and now for surgery- restart if ok with Surgery hopefully in 1-2 days (15) History of cardiomyopathy: Plan: 2nd to pacemaker? (pt ventricularly paces) other? per cardiology notes he has been Rx with BB & DARYL with improved EF. EF on last echo 50-55% with mild RV dysfunction. - continue COreg - lisinopril restarted he does NOT examine in decompensated CHF Plan DVT proph - eliquis restarted today, 07/26/22 Dispo-Med/Surg; awaiting placement -- referrals out to [facility] and [facility]. Will be here at least until 07/28/22 Sorto catheter removed today, plan for voiding trial Admission and Anticipated Discharge Date Admission Date: July 21, 2022 Subjective No acute events overnight. Patient was cleared to resume eliquis by surgery team today. He was drowsy this am but awoke and was talkative this afternoon. His pain is well controlled at this point. Review of Systems Review of Systems: All systems reviewed & are unremarkable except as noted in HPI & below Physical Exam Constitutional: WD/WN, vitals as above no acute distress Eyes: + anicteric sclerae ENMT: external ear and nose normal, oropharynx normal Neck: trachea midline Respiratory: normal respiratory effort, lungs clear to auscultation Cardiovascular: Rate/Rhythm: regular rate and + irregularly irregular Heart Sounds: normal S1 and normal S2 Gastrointestinal (Abdomen): Inspection/Auscultation: normal bowel sounds Percussion/Palpation: + abdomen tender (RUQ) and abdomen soft; no guarding and abdomen not rigid Musculoskeletal: Head/Neck/Chest: normocephalic and head atraumatic Skin: no rashes, warm and dry Neurologic: moves all extremities Psychiatric: A+Ox3, euthymic affect Results & Data Results & Data Vital Signs (Past 12 Hours) Vital Signs Temp Pulse Resp BP Pulse Ox O2 Del Method 07/26/22 16:04 36.6 C 62 20 139/81 93 Room Air 07/26/22 11:37 36.6 C 63 16 151/88 H 92 Room Air 07/26/22 10:27 83 155/85 H 07/26/22 09:37 Room Air 07/26/22 07:45 36.8 C 60 18 144/78 H 94 Room Air PG Care Time/CCT Total # of Minutes Spent Total Time Spent with Patient: Total time spent is greater than 50% in coordination of care (as documented) at patient's floor/unit and/or counseling patient: Coding Level of Care Code 03985 SUB INP/OBS CARE 2/35MIN Diagnoses Severe sepsis A41.9; R65.20
[2022-07-26] MEDS: ERYTHROMYCIN OP OINT 5 MG/GM 3.5 GM TUBE OP SCH (20:39)
--- NOTE | 2022-07-27 07:10 | Hospitalist Progress Note ---
Date of Service July 27, 2022 Assessment & Plan (1) Severe sepsis: Plan: 87 yo M Hx AFib on chronic Eliquis, heart block s/p pacemaker admitted for severe sepsis 2/2 choledocholithiasis and acute cholecystitis. Presented with leukocytosis, elevated lactate, AMS, hypotension 2/2 acute choledocholithiasis/cholecystitis as described below. Resolved following appropriate IVF resuscitation and Abx. Started on Zosyn on admission, transitioned to Augmentin BID to complete on 08/05/22. (2) Choledocholithiasis: Plan: He is now POD#3 s/p ERCP with removal of CBD stone and biliary stent placement, and lap taylor. Abx to continue x2 weeks total as described above. Will need repeat ERCP in 6-8 weeks, to be arranged by GI service. (3) Acute metabolic encephalopathy: Plan: Suspected 2/2 severe sepsis, much improved with periods of confusion (baseline mild cognitive impairment per friend, drives and ambulates with walker at baseline). Ammonia, B12, recent TSH, VBG within normal limits, CT Head without acute CVA/ICH. Low thiamine noted on admission with chronic alcohol use (no evidence of acute withdrawal this admission), given high dose thiamine for several days and now on daily thiamine PO to continue outpatient. Recommended for acute rehab on discharge, referrals pending, CM involved. (4) Rhabdomyolysis: Plan: Secondary to fall, with mildly elevated transaminases (also in the setting of choledocholithiasis), resolved. (5) Constipation: Plan: In the setting of recent surgery, will start Miralax BID and monitor for improvement. Abdomen soft. (6) Gastritis: Plan: Noted on CTAP. With daily EtOH use at home, recent history of 20 pounds weight loss and poor appetite (2/2 EtOH "tea and toast" vs. underlying malignancy?) PPI IV transitioned to PO to continue on discharge. (7) Status cardiac pacemaker: Plan: Normal pacer interrogation - r/o dysrhythmia as cause of fall vs syncopal episode. No events on tele --> downgraded off tele. (8) Hypertension: Plan: History of, but with hypotension in the setting of acute illness on admission, since resolved and now back on home antihypertensives. (9) BPH with obstruction/lower urinary tract symptoms: Plan: With periods of urinary incontinence, Sorto removed yesterday. (10) Conjunctivitis: Plan: Since resolved, to bilateral eyes. Respiratory BioFire panel negative. Continue erythromycin eye ointment at HS, to complete on discharge. (11) Facial trauma: Plan: Fortunately without fractures or other injuries on head/face/neck imaging. (12) Weight loss: Plan: See #5, continue CBEs BID for additional calories. (13) Memory loss: Plan: With mild cognitive impairment at baseline per friend. Delirium precautions. (14) Folate deficiency: Plan: Continue daily folate supplement. (15) Permanent atrial fibrillation: Plan: Eliquis resumed 07/26/22. (16) History of cardiomyopathy: Plan: Followed by Cardiology, ventricularly paced. Last Echo with EF 50-55% with mild RV dysfunction. Continue Coreg, lisinopril. Plan DVT ppx: Eliquis Code Status: FULL CODE Med/Surg Plan for ultimate discharge to rehab facility, referrals pending Admission and Anticipated Discharge Date Admission Date: July 21, 2022 Subjective No acute events overnight. Patient denies chest pain, shortness of breath, abdominal pain, nausea. He reports that he has not had a bowel movement since his admission. Review of Systems Review of Systems: All systems reviewed & are unremarkable except as noted in Subjective Physical Exam Constitutional: WD/WN, vitals as above Respiratory: normal respiratory effort, lungs clear to auscultation Cardiovascular: RRR, no murmur, no edema Gastrointestinal (Abdomen): normal bowel sounds, soft, nontender, no hepatosplenomegaly Skin: no rashes, warm and dry incision sites are clean, dry, with surgical glue in place Psychiatric: A+Ox3, euthymic affect Results & Data Results & Data Vital Signs (Past 12 Hours) Vital Signs Temp Pulse Resp BP Pulse Ox O2 Del Method 07/27/22 04:23 36.3 C L 63 18 159/88 H 97 Room Air 07/26/22 20:00 Room Air 07/26/22 23:45 36.5 C 60 18 159/80 H 93 Room Air 07/26/22 19:57 36.9 C 66 18 121/75 95 Room Air PG Care Time/CCT Total # of Minutes Spent Total Time Spent with Patient: Total time spent is greater than 50% in coordination of care (as documented) at patient's floor/unit and/or counseling patient: Coding Level of Care Code 15058 SUB INP/OBS CARE 3/50MIN Diagnoses Severe sepsis A41.9; R65.20 Choledocholithiasis K80.50 Acute metabolic encephalopathy G93.41 Rhabdomyolysis M62.82 Constipation K59.00 Gastritis K29.70 Status cardiac pacemaker Z95.0 Hypertension I10 Hypertension type: essential hypertension BPH with obstruction/lower urinary tract symptoms N40.1; N13.8 Conjunctivitis H10.9 Facial trauma S09.93XA Weight loss R63.4 Memory loss R41.3 Folate deficiency E53.8 Permanent atrial fibrillation I48.21 History of cardiomyopathy Z86.79 (8) Hypertension Hypertension type: essential hypertension Qualified Code(s): I10 - Essential (primary) hypertension
[2022-07-27 07:53] LABS: BUN Creatinine Ratio 29.7 (10-20); Creatinine Clr Calc Pharmacy 82.4 ml/min; Est GFR (African American) 101.3 ml/min; Est GFR (Non-African American) 87.4 ml/min; Magnesium 1.5 mg/dl (1.7-2.4); Potassium 3.6 mmol/L (3.5-5.1)
[2022-07-27] MEDS: MULTIVITAMIN TAB PO SCH (08:08)
[2022-07-27] MEDS: carvediloL 12.5 MG TAB PO SCH ×2 (08:09→20:32)
[2022-07-27] MEDS: AMOXICILLIN/CLAVULANATE 875 MG TAB PO SCH ×2 (08:09→16:14)
[2022-07-27] MEDS: APIXABAN 5 MG TABLET PO SCH ×2 (08:09→20:33)
[2022-07-27] MEDS: CYANOCOBALAMIN (B-12) 500 MCG TABLET PO SCH (08:10)
[2022-07-27] MEDS: FOLIC ACID 1 MG TAB PO SCH (08:10)
[2022-07-27] MEDS: MAGNESIUM OXIDE 400 MG TAB PO SCH (08:11)
[2022-07-27] MEDS: lisinopril 5 MG TAB PO SCH (08:11)
[2022-07-27] MEDS: PANTOprazole 40 MG TAB PO SCH (08:12)
[2022-07-27] MEDS: THIAMINE HCL 100 MG TAB PO SCH (08:12)
--- NOTE | 2022-07-27 09:25 | Surgery Progress Note ---
Date of Service July 27, 2022 Assessment & Plan (1) Cholelithiasis: Plan: POD #3 Mr. Andrews continues to do well from a surgical standpoint. Discharge instructions were once again reviewed. He is to follow-up with GI as outpatient in 6-8 weeks for stent removal. Discharge planning per primary team- referrals placed to both [facility] and [facility]. POD #2 Mr. Andrews is doing well. Incisions are healing well with no signs of infection. He is tolerating a heart healthy diet. Discharge instructions reviewed. Patient to follow-up with GI as outpatient in 6-8 weeks for stent removal. Return precautions reviewed. From a surgical standpoint, he is ok for discharge when deemed ok by primary team. Postoperative day #1 Doing well We will slowly advance diet. We will order physical therapy if not already done Admission and Anticipated Discharge Date Admission Date: July 21, 2022 Supervising Physician Co-Signing Physician Notes Patient seen examined, agree with above. Status post laparoscopic cholecystectomy, doing well. Incisions without infection. Okay to discharge from general surgery standpoint. Subjective Mr. Andrews is resting comfortably in bed. He denies any abdominal pain or discomfort. Referrals to [facility] and [facility] pending. Review of Systems Constitutional: no fever and no chills Gastrointestinal: no abdominal pain, no nausea and no vomiting Physical Exam Physical Exam: On physical exam- incisions are clean, dry, intact and well-approximated with surgical glue in place. No signs of infection. Abdomen is soft. Expected incisional tenderness. Constitutional: WD/WN, vitals as above Respiratory: normal respiratory effort; no respiratory distress and no labored breathing Results & Data Vital Signs (Past 12 Hours) Vital Signs Temp Pulse Resp BP Pulse Ox O2 Del Method 07/27/22 07:37 Room Air 07/27/22 04:23 36.3 C L 63 18 159/88 H 97 Room Air 07/26/22 23:45 36.5 C 60 18 159/80 H 93 Room Air PG Care Time/CCT Total # of Minutes Spent Total Time Spent with Patient: Total time spent is greater than 50% in coordination of care (as documented) at patient's floor/unit and/or counseling patient: Coding Level of Care Code 70828 Post Operative Follow-Up Diagnoses Cholelithiasis K80.20
[2022-07-27] MEDS: POLYETHYLENE (MIRALAX) 17 GM PACK PO SCH ×2 (12:21→20:31)
[2022-07-27] MEDS: ERYTHROMYCIN OP OINT 5 MG/GM 3.5 GM TUBE OP SCH (20:31)
[2022-07-28 07:04] LABS: Calcium 8.1 mg/dl (8.6-10.3); Magnesium 1.5 mg/dl (1.7-2.4); Potassium 3.6 mmol/L (3.5-5.1)
[2022-07-28 07:09] LABS: BUN Creatinine Ratio 31.6 (10-20); Creatinine Clr Calc Pharmacy 92.5 ml/min; Est GFR (African American) 106.3 ml/min; Est GFR (Non-African American) 91.7 ml/min
--- NOTE | 2022-07-28 07:38 | Hospitalist Progress Note ---
Date of Service July 28, 2022 Assessment & Plan (1) Severe sepsis: Plan: 87 yo M Hx AFib on chronic Eliquis, heart block s/p pacemaker admitted for severe sepsis 2/2 choledocholithiasis and acute cholecystitis. Presented with leukocytosis, elevated lactate, AMS, hypotension 2/2 acute choledocholithiasis/cholecystitis as described below. Resolving following appropriate IVF resuscitation and Abx. Started on Zosyn on admission, transitioned to Augmentin BID to complete on 08/05/22. Awaiting insurance acceptance for rehab services on discharge, case management assisting with this. (2) Hypotension: Plan: History of HTN, but with hypotension episodes in the setting of acute illness on admission, so holding lisinopril until seen in follow up by PCP. Given IV fluid bolus today, repeat orthostatics tomorrow. (3) Choledocholithiasis: Plan: He is now POD#3 s/p ERCP with removal of CBD stone and biliary stent placement, and lap taylor. Abx to continue x2 weeks total as described above. Will need repeat ERCP in 6-8 weeks, to be arranged by GI service. (4) Acute metabolic encephalopathy: Plan: Suspected 2/2 severe sepsis, much improved with periods of confusion (baseline mild cognitive impairment per friend, drives and ambulates with walker at baseline). Ammonia, B12, recent TSH, VBG within normal limits, CT Head without acute CVA/ICH. Low thiamine noted on admission with chronic alcohol use (no evidence of acute withdrawal this admission), given high dose thiamine for several days and now on daily thiamine PO to continue outpatient. Recommended for acute rehab on discharge, referrals pending, CM involved. (5) Rhabdomyolysis: Plan: Secondary to fall, with mildly elevated transaminases (also in the setting of choledocholithiasis), resolved. (6) Constipation: Plan: In the setting of recent surgery, will start Miralax BID and monitor for improvement. Abdomen soft. (7) Gastritis: Plan: Noted on CTAP. With daily EtOH use at home, recent history of 20 pounds weight loss and poor appetite (2/2 EtOH "tea and toast" vs. underlying malignancy?) PPI IV transitioned to PO, to continue on discharge. (8) Status cardiac pacemaker: Plan: Normal pacer interrogation - r/o dysrhythmia as cause of fall vs syncopal episode. No events on tele --> downgraded off tele. (9) BPH with obstruction/lower urinary tract symptoms: Plan: With periods of urinary incontinence, Sorto removed 07/26/22. (10) Conjunctivitis: Plan: Since resolved, to bilateral eyes. Respiratory BioFire panel negative. Continue erythromycin eye ointment at HS, to complete on 07/31/22. (11) Facial trauma: Plan: Fortunately without fractures or other injuries on head/face/neck imaging. (12) Weight loss: Plan: See #5, continue CBEs BID for additional calories. (13) Memory loss: Plan: With mild cognitive impairment at baseline per friend. Delirium precautions. (14) Folate deficiency: Plan: Continue daily folate supplement. (15) Permanent atrial fibrillation: Plan: Eliquis resumed 07/26/22. (16) History of cardiomyopathy: Plan: Followed by Cardiology, ventricularly paced. Last Echo with EF 50-55% with mild RV dysfunction. Continue Coreg. Plan DVT ppx: Eliquis Code Status: FULL CODE Med/Surg Plan for ultimate discharge to rehab facility, referrals pending Admission and Anticipated Discharge Date Admission Date: July 21, 2022 Subjective No overnight events. Did have orthostatic hypotension late this morning with rapid improvement in BP with sitting/lying down. No complaints of chest pain or SOB. Reports feeling "listless and tired" today. Review of Systems Review of Systems: All systems reviewed & are unremarkable except as noted in Subjective Physical Exam Constitutional: WD/WN, vitals as above Respiratory: normal respiratory effort, lungs clear to auscultation Cardiovascular: RRR, no murmur, no edema Gastrointestinal (Abdomen): normal bowel sounds, soft, nontender, no hepatosplenomegaly Skin: no rashes, warm and dry incision sites are clean, dry, with surgical glue in place Psychiatric: A+Ox3, euthymic affect Results & Data Results & Data Vital Signs (Past 12 Hours) Vital Signs Temp Pulse Resp BP Pulse Ox O2 Del Method 07/28/22 07:25 36.4 C L 64 18 148/81 H 95 Room Air 07/28/22 03:48 36.3 C L 66 20 149/85 H 93 Room Air 07/27/22 23:26 36.8 C 72 20 144/84 H 94 Room Air PG Care Time/CCT Total # of Minutes Spent Total Time Spent with Patient: Total time spent is greater than 50% in coordination of care (as documented) at patient's floor/unit and/or counseling patient: Coding Level of Care Code 30766 SUB INP/OBS CARE 2/35MIN Diagnoses Severe sepsis A41.9; R65.20 Hypotension I95.9 Choledocholithiasis K80.50 Acute metabolic encephalopathy G93.41 Rhabdomyolysis M62.82 Constipation K59.00 Gastritis K29.70 Status cardiac pacemaker Z95.0 BPH with obstruction/lower urinary tract symptoms N40.1; N13.8 Conjunctivitis H10.9 Facial trauma S09.93XA Weight loss R63.4 Memory loss R41.3 Folate deficiency E53.8 Permanent atrial fibrillation I48.21 History of cardiomyopathy Z86.79
[2022-07-28] MEDS: MAGNESIUM SULFATE / D5W 1 GM/100 ML BAG IV SCH ×2 (07:52→09:53)
[2022-07-28] MEDS: carvediloL 12.5 MG TAB PO SCH ×2 (07:54→20:01)
[2022-07-28] MEDS: APIXABAN 5 MG TABLET PO SCH ×2 (07:54→20:01)
[2022-07-28] MEDS: THIAMINE HCL 100 MG TAB PO SCH (07:54)
[2022-07-28] MEDS: CYANOCOBALAMIN (B-12) 500 MCG TABLET PO SCH (07:55)
[2022-07-28] MEDS: lisinopril 5 MG TAB PO SCH (07:55)
[2022-07-28] MEDS: MAGNESIUM OXIDE 400 MG TAB PO SCH (07:55)
[2022-07-28] MEDS: AMOXICILLIN/CLAVULANATE 875 MG TAB PO SCH ×2 (07:55→16:37)
[2022-07-28] MEDS: FOLIC ACID 1 MG TAB PO SCH (07:55)
[2022-07-28] MEDS: PANTOprazole 40 MG TAB PO SCH (07:56)
[2022-07-28] MEDS: MULTIVITAMIN TAB PO SCH (07:56)
[2022-07-28] MEDS: POLYETHYLENE (MIRALAX) 17 GM PACK PO SCH ×2 (07:56→20:01)
[2022-07-28] MEDS ORDERED: SODIUM CHLORIDE 0.9% 1000ML 500 ML IV ONE (11:47)
[2022-07-28] MEDS: ACETAMINOPHEN 325 MG TAB PO PRN (19:14)
[2022-07-28] MEDS: ERYTHROMYCIN OP OINT 5 MG/GM 3.5 GM TUBE OP SCH (20:02)
[2022-07-29 07:57] LABS: Hematocrit (blood only) 36.4 % (42.0-52.0); Hemoglobin 12.4 g/dl (14.0-18.0); Mean Corpuscular Hemoglobin 31.5 pg (25.0-34.0); Mean Corpuscular Hgb Conc 34.1 g/dL (32.0-36.0); Mean Corpuscular Volume 92.4 fL (80.0-100.0); Platelet Count 214 K/uL (130-400); RDW Standard Deviation 47.6 fL (36.4-46.3); Red Blood Count 3.94 M/uL (4.70-6.10); White Blood Count 10.27 K/ul (4.8-10.8)
[2022-07-29] MEDS: POLYETHYLENE (MIRALAX) 17 GM PACK PO SCH (08:08)
[2022-07-29 08:13] LABS: BUN Creatinine Ratio 23.9 (10-20); Creatinine Clr Calc Pharmacy 74.3 ml/min; Est GFR (African American) 97.1 ml/min; Est GFR (Non-African American) 83.8 ml/min; Magnesium 1.7 mg/dl (1.7-2.4); Potassium 3.4 mmol/L (3.5-5.1)
[2022-07-29] MEDS: carvediloL 12.5 MG TAB PO SCH (08:19)
[2022-07-29] MEDS: APIXABAN 5 MG TABLET PO SCH (08:19)
[2022-07-29] MEDS: MAGNESIUM OXIDE 400 MG TAB PO SCH (08:20)
[2022-07-29] MEDS: THIAMINE HCL 100 MG TAB PO SCH (08:20)
[2022-07-29] MEDS: PANTOprazole 40 MG TAB PO SCH (08:20)
[2022-07-29] MEDS: FOLIC ACID 1 MG TAB PO SCH (08:20)
[2022-07-29] MEDS: MULTIVITAMIN TAB PO SCH (08:20)
[2022-07-29] MEDS: CYANOCOBALAMIN (B-12) 500 MCG TABLET PO SCH (08:20)
[2022-07-29] MEDS: AMOXICILLIN/CLAVULANATE 875 MG TAB PO SCH (08:20)
--- NOTE | 2022-07-29 11:59 | Discharge Summary ---
Discharge Summary Date of Service July 29, 2022 Admission HPI Per Admitting Provider The patient is a 87-year-old male with a past medical history including folate deficiency, right lumbar radiculopathy, BPH with LUTS, impaired fasting glucose, hypertension, third-degree heart block, atrial fibrillation, cardiomyopathy, status post pacemaker and long-term anticoagulant use. Patient was found down in his apartment complex washroom and thought to be generally 6 hours. Abnormal laboratories: Lactic acid 6, AST 74, CK13 82, WBC 15.46, BUN 57, creatinine 1.04 and glucose 122. COVID-19 testing negative Imaging studies: CT head negative, CT cervical spine negative, CT thoracic spine and lumbar spine showed mild osteopenia and degenerative disc disease. CT head shows a left posterior scalp hematoma. CT face negative. CT chest shows chronic bilateral interstitial fibrosis changes. CT abdomen/pelvis questions possible gastritis, possible constipation Admission Exam Per Admitting Provider The patient is awake, alert and oriented 3, well developed and well nourished, left posterior scalp hematoma, lying in bed and in no acute distress HEENT--PERRL, EOMI, mucous membranes and oropharynx dry. Neck--supple. No JVD. No bruits. Thyroid normal, trachea midline, no adenopathy. Heart--normal S1 and S2. No murmurs, rubs or gallops. Lungs--clear bilaterally, no respiratory distress, no accessory muscle use. Abdomen--normal bowel sounds and soft. Nontender. Nondistended, no hernias or masses, no organomegaly. Extremities--no cyanosis or clubbing. No edema. Dermatologic--normal except for scalp as above Neurologic--cranial nerves II through XII grossly intact. Rheumatologic--limited exam Psychiatric--dementia, confused and disoriented Principal Dx & Hospital Course #1 = Principal Diagnosis (1) Severe sepsis: (2) Hypotension: (3) Choledocholithiasis: (4) Acute metabolic encephalopathy: (5) Rhabdomyolysis: (6) Constipation: (7) Gastritis: (8) Status cardiac pacemaker: (9) BPH with obstruction/lower urinary tract symptoms: (10) Conjunctivitis: (11) Facial trauma: (12) Weight loss: (13) Memory loss: (14) Folate deficiency: (15) Permanent atrial fibrillation: (16) History of cardiomyopathy: Plan 87 yo M Hx AFib on chronic Eliquis, heart block s/p pacemaker admitted for severe sepsis 2/2 choledocholithiasis and acute cholecystitis. Presented with leukocytosis, elevated lactate, AMS, hypotension 2/2 acute choledocholithiasis/cholecystitis as described below. Resolving following appropriate IVF resuscitation and Abx. Monitor orthostatic vitals and provide fluid resuscitation as necessary. Started on Zosyn on admission, transitioned to Augmentin BID to complete on 08/05/22. Hypotension: History of HTN, but with hypotension episodes in the setting of acute illness on admission, so holding lisinopril until seen in follow up by PCP. Given IV fluid boluses intermittently during admission. Choledocholithiasis: He is now POD#5 s/p ERCP with removal of CBD stone and biliary stent placement, and lap taylor. Abx to continue x2 weeks total as described above. Will need repeat ERCP in 6-8 weeks, to be arranged by GI service. Acute metabolic encephalopathy: Suspected 2/2 severe sepsis, much improved with periods of confusion (baseline mild cognitive impairment per friend, drives and ambulates with walker at baseline). Ammonia, B12, recent TSH, VBG within normal limits, CT Head without acute CVA/ICH. Low thiamine noted on admission with chronic alcohol use (no evidence of acute withdrawal this admission), continue daily thiamine PO and multivitamin. Rhabdomyolysis: Secondary to fall, with mildly elevated transaminases (also in the setting of choledocholithiasis), resolved. Constipation: In the setting of recent surgery, continue Miralax and titrate as needed for goal one soft BM daily. Gastritis: Noted on CTAP. With daily EtOH use at home, recent history of 20 pounds weight loss and poor appetite (2/2 EtOH "tea and toast" vs. underlying malignancy?). PPI PO on discharge, with GI follow up outpatient. Status cardiac pacemaker: Normal pacer interrogation - r/o dysrhythmia as cause of fall vs syncopal episode. No events on tele --> downgraded off tele. BPH with obstruction/lower urinary tract symptoms: With periods of urinary incontinence, Sorto removed 07/26/22. Conjunctivitis: Since resolved, to bilateral eyes. Respiratory BioFire panel negative. Continue erythromycin eye ointment at HS, to complete on 07/31/22. Facial trauma: Fortunately without fractures or other injuries on head/face/neck imaging despite fall at home. Weight loss: See #5, continue CBEs BID for additional calories. Memory loss: With mild cognitive impairment at baseline per friend. Delirium precautions. Folate deficiency: Continue daily folate supplement. Permanent atrial fibrillation: Eliquis resumed 07/26/22. History of cardiomyopathy: Followed by Cardiology, ventricularly paced. Last Echo with EF 50-55% with mild RV dysfunction. Continue Coreg. Hypomag: Continue daily magnesium supplement and multivitamin. Discharge Exam Constitutional WD/WN, vitals as above Gastrointestinal (Abdomen) soft nontender nondistended, abdomen surgical sites without evidence of erythema or drainage Psychiatric oriented to self and situation, more alert and conversational today Updated Medication List Medication Instructions Recorded Confirmed Type clobetasol-emollient 0.05 % 1 appln topical BID PRN flare up 11/15/19 07/20/22 History topical cream #1 g cholecalciferol (vitamin D3) 50 50 mcg PO DAILY #30 caps 05/29/20 07/20/22 Rx mcg (2,000 unit) capsule cyanocobalamin (vitamin B-12) 1,000 mcg PO DAILY #30 tabs 01/03/22 07/20/22 Rx 1,000 mcg tablet lisinopril 5 mg tablet 5 mg PO DAILY #100 tabs 02/10/22 07/20/22 Rx apixaban 5 mg tablet (Eliquis) 5 mg PO BID #180 tabs 02/11/22 07/20/22 Rx folic acid 1 mg tablet 1 mg PO DAILY #90 tabs 02/19/22 07/20/22 Rx amoxicillin 875 mg-potassium 1 tab PO BIDM 8 days #16 tabs 07/29/22 Rx clavulanate 125 mg tablet carvedilol 25 mg tablet 12.5 mg PO BID #180 tabs 07/29/22 07/20/22 Rx erythromycin 5 mg/gram (0.5 %) eye 1 applic ophthalmic (eye) HS 2 07/29/22 Rx ointment days #3.5 grams magnesium oxide 400 mg (241.3 mg 400 mg PO QAM 30 days #30 tabs 07/29/22 Rx magnesium) tablet multivitamin with folic acid 400 1 tab PO QAM 30 days #30 tabs 07/29/22 Rx mcg tablet (Daily-Bang (with folic acid)) pantoprazole 40 mg tablet,delayed 40 mg PO QAM 30 days #30 tabs 07/29/22 Rx release polyethylene glycol 3350 17 gram 17 g PO BID #0 ea 07/29/22 Rx oral powder packet (Miralax) thiamine HCl (vitamin B1) 100 mg 100 mg PO QAM 30 days #30 tabs 07/29/22 Rx tablet Hospital Stay Data Consultations 07/20/22 22:43 ED Decision to Admit Stat 07/22/22 12:47 Consult Gastroenterology Routine Consult General Surgery Routine Procedures Performed Operation Date: 07/24/22 08:15 Actual Procedures p Laparoscopic Cholecystectomy(Not Applicable) - Sudarshan Hernandez, Diagnostic Imagining Performed 07/20/22 19:55 CT abd pelvis IV con only Stat CT cervical spine wo con Stat CT chest diagnostic w con Stat CT facial bones wo con Stat CT head/brain wo con Stat 07/20/22 19:56 CT lumbar spine w con Stat CT thoracic spine w con Stat 07/22/22 13:03 US gallbladder Urgent 07/23/22 14:15 FL ERCP biliary ductal Routine Pending Results Patient Have Any Pending Studies at Discharge: Yes Discharge Instructions Given to Patient (Per Discharging Provider) 87 yo M Hx AFib on chronic Eliquis, heart block s/p pacemaker admitted for severe sepsis 2/2 choledocholithiasis and acute cholecystitis. Presented with leukocytosis, elevated lactate, AMS, hypotension 2/2 acute choledocholithiasis/cholecystitis as described below. Resolving following appropriate IVF resuscitation and Abx. Monitor orthostatic vitals and provide fluid resuscitation as necessary. Started on Zosyn on admission, transitioned to Augmentin BID to complete on 08/05/22. Hypotension: History of HTN, but with hypotension episodes in the setting of acute illness on admission, so holding lisinopril until seen in follow up by PCP. Given IV fluid boluses intermittently during admission. Choledocholithiasis: He is now POD#5 s/p ERCP with removal of CBD stone and biliary stent placement, and lap taylor. Abx to continue x2 weeks total as described above. Will need repeat ERCP in 6-8 weeks, to be arranged by GI service. Acute metabolic encephalopathy: Suspected 2/2 severe sepsis, much improved with periods of confusion (baseline mild cognitive impairment per friend, drives and ambulates with walker at baseline). Ammonia, B12, recent TSH, VBG within normal limits, CT Head without acute CVA/ICH. Low thiamine noted on admission with chronic alcohol use (no evidence of acute withdrawal this admission), continue daily thiamine PO. Rhabdomyolysis: Secondary to fall, with mildly elevated transaminases (also in the setting of choledocholithiasis), resolved. Constipation: In the setting of recent surgery, continue Miralax and titrate as needed for goal one soft BM daily. Gastritis: Noted on CTAP. With daily EtOH use at home, recent history of 20 pounds weight loss and poor appetite (2/2 EtOH "tea and toast" vs. underlying malignancy?). PPI PO on discharge, with GI follow up outpatient. Status cardiac pacemaker: Normal pacer interrogation - r/o dysrhythmia as cause of fall vs syncopal episode. No events on tele --> downgraded off tele. BPH with obstruction/lower urinary tract symptoms: With periods of urinary incontinence, Sorto removed 07/26/22. Conjunctivitis: Since resolved, to bilateral eyes. Respiratory BioFire panel negative. Continue erythromycin eye ointment at , to complete on 07/31/22. Facial trauma: Fortunately without fractures or other injuries on head/face/neck imaging despite fall at home. Weight loss: See #5, continue CBEs BID for additional calories. Memory loss: With mild cognitive impairment at baseline per friend. Delirium precautions. Folate deficiency: Continue daily folate supplement. Permanent atrial fibrillation: Eliquis resumed 07/26/22. History of cardiomyopathy: Followed by Cardiology, ventricularly paced. Last Echo with EF 50-55% with mild RV dysfunction. Continue Coreg. Hypomag: Continue daily magnesium supplement and multivitamin. Total Time Total Time Spent Total Time Spent (In Minutes): 35 min Coding Level of Care Code 00225 INP/OBS DISCH >30 MIN Diagnoses Severe sepsis A41.9; R65.20 Hypotension I95.9 Choledocholithiasis K80.50 Acute metabolic encephalopathy G93.41 Rhabdomyolysis M62.82 Constipation K59.00 Gastritis K29.70 Status cardiac pacemaker Z95.0 BPH with obstruction/lower urinary tract symptoms N40.1; N13.8 Conjunctivitis H10.9 Facial trauma S09.93XA Weight loss R63.4 Memory loss R41.3 Folate deficiency E53.8 Permanent atrial fibrillation I48.21 History of cardiomyopathy Z86.79
== END 2022-07-29 15:56 | DRG 853 ==
LOC: ED 19:30 → SUATTDRO 07-21 → 2N 07-21